=== PATIENT | female | born 1940 | race Caucasian/White ===

== ENCOUNTER 2017-04-13 11:10 | Emergency (ER) | payer MEDICARE, MEDICAID ==
[~2017-04-13] VITALS: Ht 170.2 cm; Wt 64.7 kg
[~2017-04-13 11:10] MED LIST: AUGM500T34 PO
[2017-04-13 11:11] VITALS: BP 186/92
[2017-04-13] MEDS ORDERED: ASPI81TA85 PO (11:22)
== END 2017-04-13 12:04 | disposition home or self-care (01) ==
LOC: M ED 11:10
DX: L98.9 Disorder of the skin and subcutaneous tissue, unspecified (principal); Z85.828 Personal history of other malignant neoplasm of skin; Z79.82 Long term (current) use of aspirin; F17.210 Nicotine dependence, cigarettes, uncomplicated

== ENCOUNTER → 2017-11-20 | Outpatient (CLI) | payer MEDICARE, MEDICAID ==
[2017-11-20 09:28] LABS: APPEARANCE, URINE CLEAR (CLEAR); BACTERIA, URINE AUTO 1+ (NEGATIVE); BILIRUBIN, URINE AUTO NEGATIVE (NEGATIVE); BLOOD, URINE BLOOD 1+ (NEGATIVE); COLOR, URINE YELLOW (YELLOW); GLUCOSE, URINE (UA) AUTO NEGATIVE (NEGATIVE); KETONE, URINE AUTO NEGATIVE (NEGATIVE); LEUKOCYTE ESTERASE, URINE AUTO TRACE (NEGATIVE); MUCUS, URINE SMALL (NEGATIVE); NITRITE, URINE AUTO NEGATIVE (NEGATIVE); PROTEIN, URINE AUTO NEGATIVE (NEGATIVE); RBC, URINE AUTO 2 /HPF (0-3); SPECIFIC GRAVITY URINE AUTO 1.012 (1.002-1.035); SQUAMOUS EPITHELIAL CELL UR AU 2 /HPF (0-6); UROBILINOGEN, URINE AUTO 0.2 mg/dL (0.0-2.0); WBC, URINE AUTO 3 /HPF (0-3)
[2017-11-20 09:38] LABS: ANION GAP 5 MEQ/L (8-16); BLOOD UREA NITROGEN 15 MG/DL (7-18); CALCIUM LEVEL 9.3 MG/DL (8.8-10.2); CARBON DIOXIDE LEVEL 31 MEQ/L (21-32); CHLORIDE LEVEL 108 MEQ/L (98-107); CHOLESTEROL LEVEL 252 MG/DL (<200); CHOLESTEROL RISK RATIO 6.461 (<5); CREATININE FOR GFR 0.87 MG/DL (0.55-1.30); GLOMERULAR FILTRATION RATE > 60.0 (>39); GLUCOSE, FASTING 88 MG/DL (70-100); HDL CHOLESTEROL 39 MG/DL (>40); LDL CHOLESTEROL 154.2 MG/DL (<100); NON-HDL-C 213 MG/DL; POTASSIUM SERUM 4.6 MEQ/L (3.5-5.1); SODIUM LEVEL 144 MEQ/L (136-145); TRIGLYCERIDES LEVEL 294 MG/DL (<150)
== END ==
LOC: M LAB 08:38
DX: M17.0 Bilateral primary osteoarthritis of knee (principal); M25.561 Pain in right knee; M25.562 Pain in left knee; I16.0 Hypertensive urgency; N30.00 Acute cystitis without hematuria; Z13.6 Encounter for screening for cardiovascular disorders
CPT/HCPCS: 73564

== ENCOUNTER → 2017-12-08 | Outpatient (REF) | payer MEDICARE, MEDICAID | LOC: M LAB REF 17:15 | DX: C44.311 Basal cell carcinoma of skin of nose (principal) | CPT/HCPCS: 88305 ==

== ENCOUNTER → 2018-03-01 | Outpatient (CLI) | payer MEDICARE, MEDICAID ==
[2018-03-01 16:58] LABS: ANION GAP 7 MEQ/L (8-16); BLOOD UREA NITROGEN 21 MG/DL (7-18); CALCIUM LEVEL 9.5 MG/DL (8.8-10.2); CARBON DIOXIDE LEVEL 28 MEQ/L (21-32); CHLORIDE LEVEL 110 MEQ/L (98-107); CREATININE FOR GFR 1.07 MG/DL (0.55-1.30); GLOMERULAR FILTRATION RATE 53.1 (>39); GLUCOSE, FASTING 95 MG/DL (70-100); SODIUM LEVEL 145 MEQ/L (136-145)
[2018-03-01 17:07] LABS: POTASSIUM SERUM 5.9 MEQ/L (3.5-5.1)
== END ==
LOC: M WUC 13:37
DX: I10 Essential (primary) hypertension (principal)
CPT/HCPCS: 80048

== ENCOUNTER → 2018-04-17 | Outpatient (CLI) | payer MEDICARE, MEDICAID | LOC: M ONCR 13:02 | DX: C44.301 Unspecified malignant neoplasm of skin of nose (principal) | CPT/HCPCS: G0463 ==

== ENCOUNTER → 2018-05-16 | Outpatient (RCR) | payer MEDICARE, MEDICAID ==
--- NOTE | 2018-04-23 08:59 | RADONC ---
RADIATION ONCOLOGY SIMULATION NOTE DATE: 04/19/2018 CHART NUMBER: [id number] Ms. Bradshaw was taken to the linear accelerator today for clinical setup of her electron beam nose field. Setup was accomplished without difficulty or discomfort. Radiation treatment planning is underway, and radiation treatments will begin subsequently. An immobilization device was created without difficulty or discomfort. It will be used throughout the course of treatment. I was physically present throughout the course of clinical setup simulation.
--- NOTE | 2018-05-01 08:16 | RADONC ---
RADIATION ONCOLOGY PROGRESS NOTE DATE: 04/30/2018 CHART NUMBER: [id number] Ms. Bradshaw is presently at a dose of 600 cGy to her nose and is tolerating treatments quite well at this point with no complaints related to her radiation therapy. She is having no skin discomfort or other problems. REVIEW OF SYSTEMS: The patient's review of systems is noncontributory. She denies nausea, vomiting, fevers, chills, night sweats, diplopia, headaches, anxiety or depression, anorexia, weight loss, visual disturbances, chest pain, urinary or bowel difficulties, bone pain, or neurological problems. PHYSICAL EXAMINATION: The patient's skin is in excellent condition with no evidence of radiation change present. There is no moist or dry desquamation. The remainder of her physical exam remains unchanged. Ms. Bradshaw is tolerating treatments quite well and radiation will continue as scheduled.
[~2018-05-16] MED LIST changes: +ASPI81TA85 PO
== END ==
LOC: M ONCR 04-19 10:59
PROVIDERS: ATTEND Radiology Radiation Oncology
DX: C44.301 Unspecified malignant neoplasm of skin of nose (principal)

== ENCOUNTER 2018-05-17 09:13 | Outpatient (RCR) | payer MEDICARE, MEDICAID | END 2018-06-15 | LOC: M ONCR 05-18 09:05 | DX: C44.301 Unspecified malignant neoplasm of skin of nose (principal) | CPT/HCPCS: 77336 ==

== ENCOUNTER → 2018-07-18 | Outpatient (CLI) | payer MEDICARE, MEDICAID ==
--- NOTE | 2018-07-19 09:43 | RADONC ---
RADIATION ONCOLOGY FOLLOWUP NOTE DATE: 07/18/2018 CHART #: [id number] DIAGNOSIS: Basal cell carcinoma of the nose. ECOG PERFORMANCE STATUS: 0. FOLLOWUP NOTE: Ms. Doran is a very pleasant 78-year-old white female with the diagnosis of a basal cell carcinoma involving her nose bilaterally who is presenting to us today for routine followup visit 1 month post completion of external beam radiation therapy. The patient presents today reporting that she is doing quite well with no complaints at this time related to her radiation therapy or disease. She has no nasal discomfort or other problems. REVIEW OF SYSTEMS: The patient's review of systems is noncontributory. Denies nausea, vomiting, fevers, chills, night sweats, diplopia, headaches, anxiety or depression, anorexia, weight loss, visual disturbances, chest pain, urinary or bowel difficulties, bone pain, or neurological problems. PHYSICAL EXAMINATION The patient is a well-developed, well-nourished white female in no acute distress. HEENT: Exam is normocephalic, atraumatic. Extraocular movements are intact. The skin over the patient's nose is in good condition with no evidence of moist or dry desquamation. There is some residual tanning left. There continues to be some pearly elevation over her left nostril, but this has significantly improved since completion of therapy. There are no other lesions that are suspicious over the patient's face or neck. There is no palpable preauricular, cervical or supraclavicular lymphadenopathy present. ASSESSMENT: The patient has clinically responded quite nicely at this point. I have scheduled her to see me again in 6 months for further followup and she will continue to be followed by her other physicians as well. cc: Jeanette Tipton DO, PGY-2 Daniel Cisneros MD
== END ==
LOC: M ONCR 09:59
PROVIDERS: ATTEND Radiology Radiation Oncology
DX: C44.301 Unspecified malignant neoplasm of skin of nose (principal)

== ENCOUNTER → 2018-10-03 | Outpatient (CLI) | payer MEDICARE, MEDICAID ==
[2018-10-03 13:44] LABS: BLOOD UREA NITROGEN 13 MG/DL (7-18); CALCIUM LEVEL 9.3 MG/DL (8.8-10.2); CARBON DIOXIDE LEVEL 32 MEQ/L (21-32); CHLORIDE LEVEL 110 MEQ/L (98-107); CREATININE FOR GFR 0.92 MG/DL (0.55-1.30); GLOMERULAR FILTRATION RATE > 60.0 (>39); GLUCOSE, FASTING 96 MG/DL (70-100); POTASSIUM SERUM 4.4 MEQ/L (3.5-5.1); SODIUM LEVEL 144 MEQ/L (136-145)
== END ==
LOC: M WUC 10:16
PROVIDERS: ATTEND Obstetrics & Gynecology
DX: I10 Essential (primary) hypertension (principal)

== ENCOUNTER → 2018-12-05 | Outpatient (CLI) | payer MEDICARE, MEDICAID ==
--- NOTE | 2018-12-09 14:11 | RADONC ---
RADIATION ONCOLOGY FOLLOWUP NOTE DATE: 12/05/2018 CHART #: [id number] DIAGNOSIS: Basal cell carcinoma of the nose. ECOG PERFORMANCE STATUS: 0. FOLLOWUP NOTE: Ms. Doran is very pleasant 78-year-old white female with the diagnosis of a basal cell carcinoma of her nose bilaterally who is presenting to us today for routine followup visit 6 months post completion of external beam radiation therapy. The patient presents today reporting that she is doing quite well with no complaints at this time related to her radiation therapy or disease. She has no skin pain or other discomforts. REVIEW OF SYSTEMS: The patient's review of systems is noncontributory. Denies nausea, vomiting, fevers, chills, night sweats, diplopia, headaches, anxiety or depression, anorexia, weight loss, visual disturbances, chest pain, urinary or bowel difficulties, bone pain, or neurological problems. PHYSICAL EXAMINATION: The patient is a well-developed, well-nourished white female in no acute distress. The skin over the treated nose is in good condition with no evidence of moist or dry desquamation. The area where her large basal cell carcinoma was has largely resolved, although there continues to be a small reddish tiny area with some elevation. This is returning to normal, but has not yet achieved normalcy. There is no palpable preauricular, cervical, supraclavicular or infraclavicular lymphadenopathy. The remainder of physical exam is unremarkable. ASSESSMENT: The patient is clinically doing very well at this time with what appears to be an excellent response. I have scheduled her however to see me again in 6 months for follow up since the skin has not totally returned to normal yet. She will also continue her follow up with her other physicians in the meantime. cc: Jeanette Tipton DO, PGY-2 Daniel Cisneros MD
== END ==
LOC: M ONCR 10:08
PROVIDERS: ATTEND Radiology Radiation Oncology
DX: C44.301 Unspecified malignant neoplasm of skin of nose (principal); Z92.3 Personal history of irradiation

== ENCOUNTER → 2019-05-29 | Outpatient (CLI) | payer MEDICARE, MEDICAID ==
--- NOTE | 2019-05-29 13:11 | RADONC ---
RADIATION ONCOLOGY FOLLOWUP NOTE DATE OF SERVICE: 05/29/2019 CHART NUMBER: [id number] DIAGNOSIS: Basal cell carcinoma of the nose. ECOG PERFORMANCE STATUS: 0. FOLLOWUP NOTE: Ms. Doran is a very pleasant 79-year-old white female with the diagnosis of a basal cell carcinoma involving the right side of her nose who is presenting to us today for routine followup visit now 1 year post completion of external beam radiation therapy. The patient presents today reporting that the lesion continues to be present and largely unchanged on her right lateral nose. She is having no pain or discomfort. REVIEW OF SYSTEMS: Noncontributory. Denies nausea, vomiting, fevers, chills, night sweats, diplopia, headaches, anxiety or depression, anorexia, weight loss, visual disturbances, chest pain, urinary or bowel difficulties, bone pain, or neurological problems. PHYSICAL EXAMINATION: The patient is a well-developed, well-nourished white female in no acute distress. The skin over the treated nose is in good condition with no evidence of moist or dry desquamation. There continues to be an elevated lesion, which is largely unchanged since time of completion of therapy. This appears to be residual disease. There is no palpable preauricular, cervical, supraclavicular, infraclavicular lymphadenopathy present. Lungs are clear to auscultation and percussion. ASSESSMENT: : I had a lengthy discussion with this patient and have personally reviewed her dosimetry. The area was treated with 9 mEq electrons prescribed to the 90% isodose line for a dose of 6000 cGy over 49 elapsed days from 04/26/2018 through 06/14/2018. 1/2 cm of tissue equivalent bolus was placed over the field. Unfortunately, the patient continues have what appears to be residual disease. I have spoken with Dr. Stinson about the possibility of resection for this lesion. Dr. Stinson appears to believe this patient may be a candidate for surgical resection for salvage. I am sending list copy of all our records, including the original pathology report to his office for evaluation and scheduling of a surgical resection. Of course, I would defer to his expertise and knowledge in the field with regards to any decisions regarding therapy. In light of the patient's close followup and intervention by Dr. Stinson, I have discharged her from my followup except on a p.r.n. basis. The patient has my cell phone number and office number and has been instructed to feel free and contact me at anytime. cc: Dallas Stinson MD
== END ==
LOC: M ONCR 10:08
PROVIDERS: ATTEND Radiology Radiation Oncology
DX: C44.301 Unspecified malignant neoplasm of skin of nose (principal)

== ENCOUNTER → 2019-06-05 | Outpatient (REF) | payer MEDICARE, MEDICAID | LOC: M LAB REF 08:28 | PROVIDERS: ATTEND Dermatology | DX: C44.311 Basal cell carcinoma of skin of nose (principal) ==

== ENCOUNTER → 2019-08-02 | Outpatient (REF) | payer MEDICARE, MEDICAID | LOC: EEVIPCON 14:15 → M LAB REF 14:15 | PROVIDERS: ATTEND Dermatology | DX: T14.90XD Injury, unspecified, subsequent encounter (principal) ==

== ENCOUNTER 2022-04-18 11:19 | Emergency (ER) | payer MEDICARE, MEDICAID, OTHER ==
[~2022-04-18] VITALS: Ht 170.2 cm; Wt 67.3 kg
[~2022-04-18 11:19] MED LIST changes: -ASPI81TA85 PO; +ASPI81TA86 PO
[2022-04-18 12:26] LABS: BASO # 0.1 10^3/uL (0.0-0.2); BASO % 0.9 % (0.0-1.0); EOS # 0.1 10^3/uL (0.0-0.5); EOS % 0.6 % (0.0-3.0); HEMOGLOBIN 14.3 g/dl (12.0-15.5); LYMPH % 27.1 % (24.0-44.0); MEAN CORPUSCULAR HEMOGLOBIN 29.6 pg (27.0-33.0); MEAN CORPUSCULAR HGB CONC 31.8 g/dl (32.0-36.5); MEAN CORPUSCULAR VOLUME 93.2 fl (80.0-96.0); MONO # 1.1 10^3/uL (0.0-0.8); MONO % 9.9 % (2.0-8.0); NEUTROPHILS # 6.7 10^3/uL (1.5-8.5); NEUTROPHILS % 60.9 % (36.0-66.0); PLATELET COUNT, AUTOMATED 318 10^3/uL (150-450); RED BLOOD COUNT 4.83 10^6/uL (4.00-5.40)
[2022-04-18 13:00] LABS: RSV AMPLIFICATION NEGATIVE (NEGATIVE)
[2022-04-18 14:27] LABS: BLOOD UREA NITROGEN 14 MG/DL (7-18); CALCIUM LEVEL 9.3 MG/DL (8.8-10.2); CARBON DIOXIDE LEVEL 27 MEQ/L (21-32); CHLORIDE LEVEL 108 MEQ/L (98-107); CREATININE FOR GFR 0.66 MG/DL (0.55-1.30); GLOMERULAR FILTRATION RATE > 60.0 (>32); GLUCOSE, FASTING 88 MG/DL (70-100); POTASSIUM SERUM 4.3 MEQ/L (3.5-5.1); SODIUM LEVEL 140 MEQ/L (136-145)
[2022-04-18] MEDS ORDERED: PROHANCE 279.3MG/ML 15ML VIAL As Ordered ONE (15:05)
[2022-04-18] MEDS ORDERED: CVS1MIS79 XX (17:26)
[2022-04-18] MEDS ORDERED: AMLO10TA PO (17:31)
[2022-04-18 17:32] VITALS: BP 178/90
== END 2022-04-18 17:46 | disposition home or self-care (01) ==
LOC: M ED 11:19
DX: H49.22 Sixth [abducent] nerve palsy, left eye (principal); I10 Essential (primary) hypertension; Z79.82 Long term (current) use of aspirin
CPT/HCPCS: 36415; 70450; 70553; 71045; 80048; 84443; 85025; 87631; 93005; 93041; 94760; 99285; A9576

== ENCOUNTER → 2022-11-15 | Outpatient (REF) | payer MEDICARE ==
[~2022-11-15] MED LIST changes: +AMLO10TA PO; +CVS1MIS79 XX
== END ==
LOC: M LAB REF 17:39
PROVIDERS: ATTEND Nurse Practitioner Family
DX: R35.0 Frequency of micturition (principal)

== ENCOUNTER → 2022-11-18 | Outpatient (CLI) | payer MEDICARE ==
[2022-11-18 12:35] LABS: BASO # 0.1 10^3/uL (0.0-0.2); BASO % 1.2 % (0.0-1.0); EOS # 0.1 10^3/uL (0.0-0.5); HEMATOCRIT 47.3 % (36.0-47.0); HEMOGLOBIN 14.7 g/dl (12.0-15.5); LYMPH # 2.9 10^3/uL (1.5-5.0); LYMPH % 30.9 % (24.0-44.0); MEAN CORPUSCULAR HEMOGLOBIN 29.5 pg (27.0-33.0); MEAN CORPUSCULAR HGB CONC 31.1 g/dl (32.0-36.5); MONO # 0.9 10^3/uL (0.0-0.8); MONO % 9.3 % (2.0-8.0); NEUTROPHILS # 5.3 10^3/uL (1.5-8.5); NEUTROPHILS % 56.6 % (36.0-66.0); PLATELET COUNT, AUTOMATED 364 10^3/uL (150-450); RED BLOOD COUNT 4.98 10^6/uL (4.00-5.40); WHITE BLOOD COUNT 9.3 10^3/uL (4.0-10.0)
[2022-11-18 13:05] LABS: ALBUMIN 3.5 G/DL (3.2-5.2); ALKALINE PHOSPHATASE 102 U/L (46-116); ALT/SGPT 12 U/L (7.0-40); AST/SGOT < 8 U/L (<34); BILIRUBIN,TOTAL 0.3 MG/DL (0.3-1.2); BLOOD UREA NITROGEN 11 MG/DL (9-23); CALCIUM LEVEL 9.2 MG/DL (8.3-10.6); CARBON DIOXIDE LEVEL 31 MMOL/L (20-31); CHLORIDE LEVEL 105 MMOL/L (98-107); GLOMERULAR FILTRATION RATE > 60.0 (>32); GLUCOSE, FASTING 85 MG/DL (74-106); POTASSIUM SERUM 4.5 MMOL/L (3.5-5.1); SODIUM LEVEL 143 MMOL/L (136-145); TOTAL PROTEIN 6.9 G/DL (5.7-8.2)
== END ==
LOC: M WUC 08:45
PROVIDERS: ATTEND Nurse Practitioner Family
DX: I10 Essential (primary) hypertension (principal)

== ENCOUNTER → 2023-01-04 | Outpatient (REF) | payer MEDICARE ==
[2023-01-04 18:15] LABS: AMORPHOUS SEDIMENT SMALL (NEGATIVE); APPEARANCE, URINE HAZY (CLEAR); BACTERIA, URINE AUTO NEGATIVE (NEGATIVE); BILIRUBIN, URINE AUTO NEGATIVE (NEGATIVE); BLOOD, URINE BLOOD NEGATIVE (NEGATIVE); COLOR, URINE YELLOW (YELLOW); GLUCOSE, URINE (UA) AUTO NEGATIVE (NEGATIVE); KETONE, URINE AUTO NEGATIVE (NEGATIVE); LEUKOCYTE ESTERASE, URINE AUTO NEGATIVE (NEGATIVE); MUCUS, URINE SMALL (NEGATIVE); NITRITE, URINE AUTO NEGATIVE (NEGATIVE); PROTEIN, URINE AUTO NEGATIVE (NEGATIVE); RBC, URINE AUTO 2 /HPF (0-3); SPECIFIC GRAVITY URINE AUTO 1.017 (1.002-1.035); SQUAMOUS EPITHELIAL CELL UR AU 2 /HPF (0-6); UROBILINOGEN, URINE AUTO 0.2 mg/dL (0.0-2.0); WBC, URINE AUTO 1 /HPF (0-3)
== END ==
LOC: M LABSMT 13:16
PROVIDERS: ATTEND Urology
DX: R35.0 Frequency of micturition (principal)

== ENCOUNTER → 2023-12-13 | Outpatient (REF) | payer MEDICARE ==
[2023-12-13 13:11] LABS: BASO # 0.1 10^3/uL (0.0-0.2); BASO % 0.9 % (0.0-1.0); EOS # 0.1 10^3/uL (0.0-0.5); EOS % 1.2 % (0.0-3.0); HEMATOCRIT 45.8 % (36.0-47.0); HEMOGLOBIN 14.4 g/dl (12.0-15.5); LYMPH # 4.2 10^3/uL (1.5-5.0); MEAN CORPUSCULAR HEMOGLOBIN 30.1 pg (27.0-33.0); MEAN CORPUSCULAR HGB CONC 31.4 g/dl (32.0-36.5); MEAN CORPUSCULAR VOLUME 95.8 fl (80.0-96.0); MONO # 1.1 10^3/uL (0.0-0.8); MONO % 9.8 % (2.0-8.0); NEUTROPHILS # 5.4 10^3/uL (1.5-8.5); NEUTROPHILS % 49.5 % (36.0-66.0); PLATELET COUNT, AUTOMATED 434 10^3/uL (150-450); RED BLOOD COUNT 4.78 10^6/uL (4.00-5.40); WHITE BLOOD COUNT 10.9 10^3/uL (4.0-10.0)
[2023-12-13 13:34] LABS: ALBUMIN 3.6 G/DL (3.2-5.2); ALKALINE PHOSPHATASE 97 U/L (46-116); ALT/SGPT 15 U/L (7.0-40); AST/SGOT 11 U/L (<34); BILIRUBIN,TOTAL 0.3 MG/DL (0.3-1.2); BLOOD UREA NITROGEN 21 MG/DL (9-23); CALCIUM LEVEL 9.6 MG/DL (8.3-10.6); CARBON DIOXIDE LEVEL 30 MMOL/L (20-31); CHLORIDE LEVEL 108 MMOL/L (98-107); CHOLESTEROL LEVEL 216 MG/DL (<200); CHOLESTEROL RISK RATIO 5.53 (<5); GLOMERULAR FILTRATION RATE > 60.0 (>32); GLUCOSE, FASTING 78 MG/DL (74-106); LDL CHOLESTEROL 129.8 MG/DL (<100); POTASSIUM SERUM 4.9 MMOL/L (3.5-5.1); SODIUM LEVEL 143 MMOL/L (136-145); TOTAL PROTEIN 7.1 G/DL (5.7-8.2); TRIGLYCERIDES LEVEL 236 MG/DL (<150)
== END ==
LOC: M LAB REF 10:28 → M LABWUC 10:28
PROVIDERS: ATTEND Registered Nurse
DX: I10 Essential (primary) hypertension (principal)

== ENCOUNTER → 2024-04-18 | Outpatient (REF) | payer MEDICARE, MEDICAID | LOC: M LAB REF 17:28 | PROVIDERS: ATTEND Registered Nurse | DX: R30.0 Dysuria (principal) ==

== ENCOUNTER → 2024-05-02 | Outpatient (REF) | payer MEDICARE, MEDICAID | LOC: M LAB REF 17:02 | PROVIDERS: ATTEND Registered Nurse | DX: R30.0 Dysuria (principal) ==

== ENCOUNTER → 2024-05-14 | Outpatient (CLI) | payer MEDICARE, MEDICAID ==
[2024-05-14 13:03] LABS: BASO # 0.1 10^3/uL (0.0-0.2); BASO % 0.5 % (0.0-1.0); EOS # 0.1 10^3/uL (0.0-0.5); EOS % 0.5 % (0.0-3.0); LYMPH # 3.5 10^3/uL (1.5-5.0); LYMPH % 26.7 % (24.0-44.0); MEAN CORPUSCULAR HEMOGLOBIN 29.7 pg (27.0-33.0); MEAN CORPUSCULAR VOLUME 95.9 fl (80.0-96.0); MONO # 1.1 10^3/uL (0.0-0.8); MONO % 8.6 % (2.0-8.0); NEUTROPHILS # 8.2 10^3/uL (1.5-8.5); NEUTROPHILS % 63.1 % (36.0-66.0); PLATELET COUNT, AUTOMATED 459 10^3/uL (150-450); RED BLOOD COUNT 4.38 10^6/uL (4.00-5.40)
[2024-05-14 13:26] LABS: ALKALINE PHOSPHATASE 92 U/L (35-104); ALT/SGPT < 9 U/L (7.0-40); AST/SGOT 14 U/L (<34); BILIRUBIN,TOTAL 0.3 MG/DL (0.3-1.2); BLOOD UREA NITROGEN 10 MG/DL (9-23); CALCIUM LEVEL 9.5 MG/DL (8.3-10.6); CARBON DIOXIDE LEVEL 29 MMOL/L (20-31); CHLORIDE LEVEL 108 MMOL/L (98-107); CREATININE FOR GFR 0.68 MG/DL (0.55-1.30); GLOMERULAR FILTRATION RATE > 60.0 (>32); GLUCOSE, FASTING 91 MG/DL (74-106); POTASSIUM SERUM 4.6 MMOL/L (3.5-5.1); SODIUM LEVEL 141 MMOL/L (136-145)
== END ==
LOC: M WUC 09:40
PROVIDERS: ATTEND Registered Nurse
DX: R30.0 Dysuria (principal)

== ENCOUNTER → 2024-05-22 | Outpatient (CLI) | payer MEDICARE, MEDICAID ==
[~2024-05-22] MED LIST changes: +ASPI81CH33 PO; +LOSA100T46 PO; +ONDA-83 PO; +PRED10TA2 PO
[2024-05-22 17:23] LABS: BASO # 0.1 10^3/uL (0.0-0.2); BASO % 0.4 % (0.0-1.0); EOS # 0.1 10^3/uL (0.0-0.5); EOS % 0.3 % (0.0-3.0); HEMATOCRIT 44.7 % (36.0-47.0); HEMOGLOBIN 13.4 g/dl (12.0-15.5); LYMPH # 3.3 10^3/uL (1.5-5.0); LYMPH % 21.1 % (24.0-44.0); MEAN CORPUSCULAR HEMOGLOBIN 29.1 pg (27.0-33.0); MEAN CORPUSCULAR VOLUME 97.2 fl (80.0-96.0); MONO # 1.6 10^3/uL (0.0-0.8); NEUTROPHILS # 10.5 10^3/uL (1.5-8.5); NEUTROPHILS % 67.6 % (36.0-66.0); PLATELET COUNT, AUTOMATED 540 10^3/uL (150-450); WHITE BLOOD COUNT 15.6 10^3/uL (4.0-10.0)
[2024-05-22 17:34] LABS: ERYTHROCYTE SEDIMENTATION RATE 122 mm/hr (0-30)
[2024-05-22 17:56] LABS: LDH LACTATE DEHYDROGENASE 154 U/L (120-246)
[2024-05-22 17:58] LABS: ALBUMIN 3.2 G/DL (3.2-5.2); ALKALINE PHOSPHATASE 94 U/L (35-104); ALT/SGPT < 9 U/L (7.0-40); AST/SGOT 9 U/L (<34); BILIRUBIN,TOTAL 0.3 MG/DL (0.3-1.2); BLOOD UREA NITROGEN 13 MG/DL (9-23); CALCIUM LEVEL 9.9 MG/DL (8.3-10.6); CARBON DIOXIDE LEVEL 28 MMOL/L (20-31); CHLORIDE LEVEL 104 MMOL/L (98-107); CREATININE FOR GFR 0.69 MG/DL (0.55-1.30); FREE T4 1.26 NG/DL (0.89-1.76); GLOMERULAR FILTRATION RATE > 60.0 (>32); GLUCOSE, FASTING 93 MG/DL (74-106); POTASSIUM SERUM 3.8 MMOL/L (3.5-5.1); SODIUM LEVEL 140 MMOL/L (136-145); THYROID STIMULATING HORMONE 2.992 uIU/ML (0.55-4.78); TOTAL PROTEIN 7.8 G/DL (5.7-8.2)
== END ==
LOC: M WUC 11:18
PROVIDERS: ATTEND Nurse Practitioner Family
DX: R63.4 Abnormal weight loss (principal); R10.30 Lower abdominal pain, unspecified; R19.09 Other intra-abdominal and pelvic swelling, mass and lump

== ENCOUNTER 2024-06-02 17:10 | Inpatient (IN) | payer MEDICARE, MEDICAID ==
[~2024-06-02] VITALS: Ht 170.2 cm; Wt 125.7 kg
[~2024-06-02 17:10] MED LIST changes: -ASPI81CH33 PO; -LOSA100T46 PO; -ONDA-83 PO; -PRED10TA2 PO
[2024-06-02] MEDS ORDERED: ONDA-83 PO (17:49)
[2024-06-02] MEDS ORDERED: PRED10TA2 PO (17:49)
[2024-06-02 19:07] LABS: BASO # 0.1 10^3/uL (0.0-0.2); BASO % 0.4 % (0.0-1.0); EOS % 0.1 % (0.0-3.0); HEMATOCRIT 43.7 % (36.0-47.0); HEMOGLOBIN 13.9 g/dl (12.0-15.5); LYMPH # 3.2 10^3/uL (1.5-5.0); LYMPH % 16.4 % (24.0-44.0); MEAN CORPUSCULAR HEMOGLOBIN 29.4 pg (27.0-33.0); MEAN CORPUSCULAR HGB CONC 31.8 g/dl (32.0-36.5); MEAN CORPUSCULAR VOLUME 92.4 fl (80.0-96.0); MONO % 14.8 % (2.0-8.0); NEUTROPHILS # 12.6 10^3/uL (1.5-8.5); NEUTROPHILS % 65.9 % (36.0-66.0); PLATELET COUNT, AUTOMATED 541 10^3/uL (150-450); RED BLOOD COUNT 4.73 10^6/uL (4.00-5.40); WHITE BLOOD COUNT 19.2 10^3/uL (4.0-10.0)
[2024-06-02 19:19] LABS: MONO # 2.9 10^3/uL (0.0-0.8)
[2024-06-02 19:29] LABS: BLOOD UREA NITROGEN 18 MG/DL (9-23); CALCIUM LEVEL 9.8 MG/DL (8.3-10.6); CARBON DIOXIDE LEVEL 28 MMOL/L (20-31); CHLORIDE LEVEL 107 MMOL/L (98-107); CREATININE FOR GFR 0.71 MG/DL (0.55-1.30); GLOMERULAR FILTRATION RATE > 60.0 (>32); GLUCOSE, FASTING 102 MG/DL (74-106); POTASSIUM SERUM 4.7 MMOL/L (3.5-5.1); SODIUM LEVEL 144 MMOL/L (136-145)
[2024-06-02] MEDS: PIPERACILLIN/TAZOBACTAM SOD 3.375 GM in DEXTROSE 5% (D5W) ADV/MINI-BAG 50 ML IV ONE (23:20)
[2024-06-03] MEDS ORDERED: MOM 30ML SUSPENSION UDC PO PRN (00:25)
[2024-06-03] MEDS ORDERED: ASPI81CH33 PO (00:40)
[2024-06-03] MEDS ORDERED: LOSA100T46 PO (00:40)
[2024-06-03] MEDS ORDERED: HOME MED LIST COMPLETE! XX SCH (00:45)
[2024-06-03] MEDS: IPRATROPIUM 0.5MG/ALBUTEROL 2.5MG INH SOL UD 3ML (DUONEB) NEB SCH (00:56)
[2024-06-03 01:42] VITALS: BP 178/97; TEMP 97.7; O2SAT 94
[2024-06-03] MEDS: ONDANSETRON 4MG 2ML VIAL IV PRN (02:52)
[2024-06-03] MEDS: KETOROLAC 30 MG/ML 1ML VIAL IV PRN (04:17)
[2024-06-03 04:23] VITALS: BP 159/87; TEMP 98.1; O2SAT 90
[2024-06-03 06:41] LABS: HEMATOCRIT 38.7 % (36.0-47.0); HEMOGLOBIN 12.1 g/dl (12.0-15.5); MEAN CORPUSCULAR HGB CONC 31.3 g/dl (32.0-36.5); MEAN CORPUSCULAR VOLUME 92.8 fl (80.0-96.0); RED BLOOD COUNT 4.17 10^6/uL (4.00-5.40); WHITE BLOOD COUNT 16.4 10^3/uL (4.0-10.0)
[2024-06-03] MEDS: PIPERACILLIN/TAZOBACTAM SOD 3.375 GM in DEXTROSE 5% (D5W) ADV/MINI-BAG 50 ML IV SCH (06:44)
[2024-06-03 06:47] LABS: PLATELET COUNT, AUTOMATED 441 10^3/uL (150-450)
[2024-06-03 06:56] LABS: ALBUMIN 2.2 G/DL (3.2-5.2); ALKALINE PHOSPHATASE 88 U/L (35-104); ALT/SGPT 28 U/L (7.0-40); AST/SGOT 14 U/L (<34); BILIRUBIN,TOTAL 0.3 MG/DL (0.3-1.2); BLOOD UREA NITROGEN 17 MG/DL (9-23); CALCIUM LEVEL 9.3 MG/DL (8.3-10.6); CARBON DIOXIDE LEVEL 30 MMOL/L (20-31); CHLORIDE LEVEL 107 MMOL/L (98-107); CREATININE FOR GFR 0.73 MG/DL (0.55-1.30); GLOMERULAR FILTRATION RATE > 60.0 (>32); GLUCOSE, FASTING 104 MG/DL (74-106); POTASSIUM SERUM 4.2 MMOL/L (3.5-5.1); SODIUM LEVEL 141 MMOL/L (136-145); TOTAL PROTEIN 6.3 G/DL (5.7-8.2)
[2024-06-03] MEDS ORDERED: predniSONE 10MG TAB PO SCH (09:00)
[2024-06-03] MEDS: LOSARTAN 50MG TABLET PO SCH (09:08)
[2024-06-03] MEDS: LR 1,000 ML IV SCH (09:08)
[2024-06-03] MEDS: PANTOPRAZOLE 40MG VIAL IV SCH (09:08)
[2024-06-03] MEDS ORDERED: GLUCAGON INJ 1MG VIAL SC PRN (11:05)
[2024-06-03] MEDS ORDERED: IPRATROPIUM 0.5MG/ALBUTEROL 2.5MG INH SOL UD 3ML (DUONEB) NEB PRN (11:05)
[2024-06-03] MEDS ORDERED: GLUCOSE 4 GM CHEW PO PRN (11:05)
[2024-06-03] MEDS ORDERED: DEXTROSE 50% 50ML SYRINGE IV PRN (11:05)
[2024-06-03 12:00] VITALS: BP 141/75; TEMP 97.9; O2SAT 95
[2024-06-03] MEDS ORDERED: LIDOCAINE 1% MDV 20ML VIAL As Ordered ONE (12:46)
[2024-06-03 20:00] VITALS: BP 141/77; TEMP 98.2; O2SAT 94
[2024-06-04 04:00] VITALS: BP 138/76; TEMP 98.1; O2SAT 92
[2024-06-04] MEDS: IPRATROPIUM 0.5MG/ALBUTEROL 2.5MG INH SOL UD 3ML (DUONEB) NEB SCH (08:00)
[2024-06-04] MEDS: ASPIRIN 81MG ENTERIC TABLET PO SCH (09:00)
[2024-06-04] MEDS: MORPHINE 4 MG/ML 1ML VIAL IV PRN (09:41)
[2024-06-04 09:44] LABS: BASO # 0.1 10^3/uL (0.0-0.2); BASO % 0.5 % (0.0-1.0); EOS % 0.1 % (0.0-3.0); HEMATOCRIT 38.9 % (36.0-47.0); LYMPH % 17.2 % (24.0-44.0); MEAN CORPUSCULAR HEMOGLOBIN 29.3 pg (27.0-33.0); MEAN CORPUSCULAR HGB CONC 30.8 g/dl (32.0-36.5); MEAN CORPUSCULAR VOLUME 94.9 fl (80.0-96.0); MONO % 11.6 % (2.0-8.0); NEUTROPHILS # 12.1 10^3/uL (1.5-8.5); NEUTROPHILS % 68.3 % (36.0-66.0); PLATELET COUNT, AUTOMATED 394 10^3/uL (150-450); WHITE BLOOD COUNT 17.7 10^3/uL (4.0-10.0)
[2024-06-04 10:20] LABS: BLOOD UREA NITROGEN 15 MG/DL (9-23); CALCIUM LEVEL 8.9 MG/DL (8.3-10.6); CARBON DIOXIDE LEVEL 30 MMOL/L (20-31); CHLORIDE LEVEL 106 MMOL/L (98-107); CREATININE FOR GFR 0.81 MG/DL (0.55-1.30); GLOMERULAR FILTRATION RATE > 60.0 (>32); GLUCOSE, FASTING 82 MG/DL (74-106); POTASSIUM SERUM 4.4 MMOL/L (3.5-5.1); SODIUM LEVEL 141 MMOL/L (136-145)
[2024-06-04] MEDS: ENOXAPARIN 40MG/0.4ML SYRINGE (J1650 PER 10MG) SC SCH (11:36)
[2024-06-04 12:00] VITALS: BP 149/85; TEMP 97.5; O2SAT 90
[2024-06-04 12:30] VITALS: O2SAT 95
[2024-06-04 13:00] VITALS: O2SAT 85
[2024-06-04 13:10] VITALS: O2SAT 90
[2024-06-04 20:54] VITALS: BP 114/72; TEMP 97.7; O2SAT 91
[2024-06-05] VITALS (15 sets, daily range): BP systolic 98–133; BP diastolic 62–81; TEMP 97.7–101.2; O2SAT 85–93
[2024-06-05 04:44] LABS: BASO # 0.1 10^3/uL (0.0-0.2); BASO % 0.5 % (0.0-1.0); EOS % 0.1 % (0.0-3.0); HEMATOCRIT 37.2 % (36.0-47.0); HEMOGLOBIN 11.5 g/dl (12.0-15.5); LYMPH # 2.9 10^3/uL (1.5-5.0); LYMPH % 16.4 % (24.0-44.0); MEAN CORPUSCULAR HEMOGLOBIN 29.4 pg (27.0-33.0); MEAN CORPUSCULAR HGB CONC 30.9 g/dl (32.0-36.5); MEAN CORPUSCULAR VOLUME 95.1 fl (80.0-96.0); MONO # 1.8 10^3/uL (0.0-0.8); MONO % 10.3 % (2.0-8.0); NEUTROPHILS # 12.5 10^3/uL (1.5-8.5); NEUTROPHILS % 70.4 % (36.0-66.0); PLATELET COUNT, AUTOMATED 407 10^3/uL (150-450); RED BLOOD COUNT 3.91 10^6/uL (4.00-5.40); WHITE BLOOD COUNT 17.7 10^3/uL (4.0-10.0)
[2024-06-05 04:52] LABS: VENOUS BASE EXCESS 3.2 (-2.0-2.0); VENOUS HCO3 28.8 MMOL/L (23.0-27.0); VENOUS PARTIAL PRESSURE CO2 47.6 mmHg (38.0-50.0); VENOUS PARTIAL PRESSURE O2 74.4 mmHg (30.0-50.0); VENOUS PH 7.399 UNITS (7.330-7.430); VENOUS STANDARD HCO3 27.3 MMOL/L; VENOUS TOTAL CO2 30.2 MMOL/L (24.0-28.0)
[2024-06-05 05:05] LABS: BLOOD UREA NITROGEN 14 MG/DL (9-23); CALCIUM LEVEL 8.6 MG/DL (8.3-10.6); CARBON DIOXIDE LEVEL 30 MMOL/L (20-31); CHLORIDE LEVEL 105 MMOL/L (98-107); CHOLESTEROL LEVEL 167 MG/DL (<200); CHOLESTEROL RISK RATIO 5.21 (<5); CREATININE FOR GFR 0.77 MG/DL (0.55-1.30); GLOMERULAR FILTRATION RATE > 60.0 (>32); GLUCOSE, FASTING 110 MG/DL (74-106); LDL CHOLESTEROL 105.2 MG/DL (<100); POTASSIUM SERUM 3.6 MMOL/L (3.5-5.1); SODIUM LEVEL 141 MMOL/L (136-145); TRIGLYCERIDES LEVEL 149 MG/DL (<150)
[2024-06-05] MEDS: MAGNESIUM OXIDE 400MG TAB (MAG-OX) PO ONE (05:35)
[2024-06-05] MEDS: ACETAMINOPHEN 325 MG TAB PO PRN (09:02)
[2024-06-05] MEDS ORDERED: ISOVUE-370 76% 100ML VIAL As Ordered ONE (09:18)
[2024-06-05] MEDS: ERTAPENEM SODIUM 1 GM in NS MINI-BAG PLUS 50 ML IV SCH (11:08)
[2024-06-05] MEDS: methylPREDNISolone 125MG 2ML VIAL IV ONE (11:08)
[2024-06-05] MEDS: MAG SULF 1GM/100ML (MAG RUN) 1 GM in IV 1 EA IV SCH (11:50)
[2024-06-05] MEDS: ATORVASTATIN 20 MG TAB PO SCH (14:14)
[2024-06-05] MEDS: methylPREDNISolone 40MG 1ML VIAL IV SCH (20:38)
[2024-06-06] VITALS (12 sets, daily range): BP systolic 115–141; BP diastolic 67–83; TEMP 97.2–98.2; O2SAT 85–96
[2024-06-06 06:10] LABS: BASO % 0.1 % (0.0-1.0); EOS % 0.1 % (0.0-3.0); HEMOGLOBIN 11.5 g/dl (12.0-15.5); LYMPH % 5.7 % (24.0-44.0); MEAN CORPUSCULAR HEMOGLOBIN 28.9 pg (27.0-33.0); MEAN CORPUSCULAR HGB CONC 31.1 g/dl (32.0-36.5); MONO # 0.5 10^3/uL (0.0-0.8); MONO % 3.1 % (2.0-8.0); NEUTROPHILS # 14.8 10^3/uL (1.5-8.5); PLATELET COUNT, AUTOMATED 385 10^3/uL (150-450); RED BLOOD COUNT 3.98 10^6/uL (4.00-5.40); WHITE BLOOD COUNT 16.6 10^3/uL (4.0-10.0)
[2024-06-06 06:40] LABS: BLOOD UREA NITROGEN 11 MG/DL (9-23); CALCIUM LEVEL 9.2 MG/DL (8.3-10.6); CARBON DIOXIDE LEVEL 29 MMOL/L (20-31); CHLORIDE LEVEL 105 MMOL/L (98-107); CREATININE FOR GFR 0.57 MG/DL (0.55-1.30); GLOMERULAR FILTRATION RATE > 60.0 (>32); GLUCOSE, FASTING 147 MG/DL (74-106); POTASSIUM SERUM 4.1 MMOL/L (3.5-5.1); SODIUM LEVEL 139 MMOL/L (136-145)
[2024-06-06] MEDS ORDERED: predniSONE 5 MG TAB PO SCH (09:00)
[2024-06-07] VITALS: BP 139/77; TEMP 97.6; O2SAT 93
[2024-06-07 04:00] VITALS: BP 151/87; TEMP 97.3; O2SAT 93
[2024-06-07 04:50] LABS: BASO % 0.2 % (0.0-1.0); HEMOGLOBIN 11.3 g/dl (12.0-15.5); LYMPH # 1.1 10^3/uL (1.5-5.0); LYMPH % 5.1 % (24.0-44.0); MEAN CORPUSCULAR HEMOGLOBIN 28.8 pg (27.0-33.0); MEAN CORPUSCULAR HGB CONC 31.4 g/dl (32.0-36.5); MEAN CORPUSCULAR VOLUME 91.6 fl (80.0-96.0); MONO # 0.7 10^3/uL (0.0-0.8); MONO % 3.4 % (2.0-8.0); NEUTROPHILS # 19.1 10^3/uL (1.5-8.5); NEUTROPHILS % 89.4 % (36.0-66.0); PLATELET COUNT, AUTOMATED 473 10^3/uL (150-450); RED BLOOD COUNT 3.93 10^6/uL (4.00-5.40); WHITE BLOOD COUNT 21.4 10^3/uL (4.0-10.0)
[2024-06-07 05:30] LABS: BLOOD UREA NITROGEN 17 MG/DL (9-23); CALCIUM LEVEL 9.4 MG/DL (8.3-10.6); CARBON DIOXIDE LEVEL 29 MMOL/L (20-31); CHLORIDE LEVEL 105 MMOL/L (98-107); CREATININE FOR GFR 0.66 MG/DL (0.55-1.30); GLOMERULAR FILTRATION RATE > 60.0 (>32); GLUCOSE, FASTING 162 MG/DL (74-106); POTASSIUM SERUM 4.1 MMOL/L (3.5-5.1); SODIUM LEVEL 141 MMOL/L (136-145)
[2024-06-07 09:30] VITALS: BP 154/90; TEMP 96.7; O2SAT 91
[2024-06-07 12:00] VITALS: BP 154/90; TEMP 97; O2SAT 93
[2024-06-07 16:00] VITALS: BP 148/78; TEMP 97.5; O2SAT 94
[2024-06-07] MEDS: methylPREDNISolone 40MG 1ML VIAL IV SCH (19:45)
[2024-06-07 19:46] VITALS: BP 140/85; TEMP 98.1; O2SAT 92
[2024-06-08] VITALS (8 sets, daily range): BP systolic 147–167; BP diastolic 60–97; TEMP 97.3–98.4; O2SAT 90–95
[2024-06-08 06:04] LABS: BASO # 0.1 10^3/uL (0.0-0.2); BASO % 0.2 % (0.0-1.0); HEMATOCRIT 37.8 % (36.0-47.0); HEMOGLOBIN 11.7 g/dl (12.0-15.5); LYMPH % 4.3 % (24.0-44.0); MEAN CORPUSCULAR HEMOGLOBIN 29.3 pg (27.0-33.0); MEAN CORPUSCULAR VOLUME 94.7 fl (80.0-96.0); MONO # 0.9 10^3/uL (0.0-0.8); NEUTROPHILS # 20.7 10^3/uL (1.5-8.5); NEUTROPHILS % 88.8 % (36.0-66.0); PLATELET COUNT, AUTOMATED 495 10^3/uL (150-450); RED BLOOD COUNT 3.99 10^6/uL (4.00-5.40); WHITE BLOOD COUNT 23.3 10^3/uL (4.0-10.0)
[2024-06-08 06:24] LABS: BLOOD UREA NITROGEN 19 MG/DL (9-23); CALCIUM LEVEL 9.8 MG/DL (8.3-10.6); CARBON DIOXIDE LEVEL 30 MMOL/L (20-31); CHLORIDE LEVEL 105 MMOL/L (98-107); CREATININE FOR GFR 0.69 MG/DL (0.55-1.30); GLOMERULAR FILTRATION RATE > 60.0 (>32); GLUCOSE, FASTING 130 MG/DL (74-106); POTASSIUM SERUM 4.5 MMOL/L (3.5-5.1); SODIUM LEVEL 143 MMOL/L (136-145)
[2024-06-08] MEDS: predniSONE 20 MG TAB PO SCH (11:48)
[2024-06-08] MEDS: MEROPENEM INJ 1 GM in IV 1 EA IV SCH (11:48)
[2024-06-08] MEDS: BUDESONIDE 0.5 MG/2 ML INHALATION SUSPENSION NEB SCH (13:32)
[2024-06-09] VITALS (8 sets, daily range): BP systolic 153–173; BP diastolic 92–110; TEMP 97.5–97.9; O2SAT 88–94
[2024-06-09 06:45] LABS: BASO # 0.1 10^3/uL (0.0-0.2); BASO % 0.4 % (0.0-1.0); HEMATOCRIT 39.7 % (36.0-47.0); HEMOGLOBIN 12.1 g/dl (12.0-15.5); LYMPH # 2.2 10^3/uL (1.5-5.0); LYMPH % 10.9 % (24.0-44.0); MEAN CORPUSCULAR HEMOGLOBIN 28.7 pg (27.0-33.0); MEAN CORPUSCULAR HGB CONC 30.5 g/dl (32.0-36.5); MEAN CORPUSCULAR VOLUME 94.1 fl (80.0-96.0); MONO # 1.8 10^3/uL (0.0-0.8); NEUTROPHILS # 15.2 10^3/uL (1.5-8.5); NEUTROPHILS % 75.9 % (36.0-66.0); PLATELET COUNT, AUTOMATED 507 10^3/uL (150-450); RED BLOOD COUNT 4.22 10^6/uL (4.00-5.40); WHITE BLOOD COUNT 20.1 10^3/uL (4.0-10.0)
[2024-06-09 07:06] LABS: BLOOD UREA NITROGEN 16 MG/DL (9-23); CALCIUM LEVEL 9.5 MG/DL (8.3-10.6); CARBON DIOXIDE LEVEL 30 MMOL/L (20-31); CHLORIDE LEVEL 107 MMOL/L (98-107); GLOMERULAR FILTRATION RATE > 60.0 (>32); GLUCOSE, FASTING 84 MG/DL (74-106); SODIUM LEVEL 143 MMOL/L (136-145)
[2024-06-09] MEDS: LOSARTAN 50MG TABLET PO SCH ×2 (10:44→20:19)
[2024-06-09] MEDS: MAGNESIUM CITRATE 300ML BTL PO SCH (13:36)
[2024-06-10] VITALS (8 sets, daily range): BP systolic 137–186; BP diastolic 87–96; TEMP 96.4–98.1; O2SAT 91–98
[2024-06-10 06:10] LABS: BASO # 0.2 10^3/uL (0.0-0.2); BASO % 0.7 % (0.0-1.0); HEMATOCRIT 37.7 % (36.0-47.0); HEMOGLOBIN 11.6 g/dl (12.0-15.5); LYMPH # 3.9 10^3/uL (1.5-5.0); LYMPH % 17.1 % (24.0-44.0); MEAN CORPUSCULAR HEMOGLOBIN 28.8 pg (27.0-33.0); MEAN CORPUSCULAR HGB CONC 30.8 g/dl (32.0-36.5); MEAN CORPUSCULAR VOLUME 93.5 fl (80.0-96.0); MONO # 1.8 10^3/uL (0.0-0.8); MONO % 7.9 % (2.0-8.0); NEUTROPHILS # 16.3 10^3/uL (1.5-8.5); NEUTROPHILS % 71.1 % (36.0-66.0); PLATELET COUNT, AUTOMATED 419 10^3/uL (150-450); RED BLOOD COUNT 4.03 10^6/uL (4.00-5.40); WHITE BLOOD COUNT 22.9 10^3/uL (4.0-10.0)
[2024-06-10 06:27] LABS: BLOOD UREA NITROGEN 13 MG/DL (9-23); CALCIUM LEVEL 8.5 MG/DL (8.3-10.6); CARBON DIOXIDE LEVEL 29 MMOL/L (20-31); CHLORIDE LEVEL 109 MMOL/L (98-107); CREATININE FOR GFR 0.62 MG/DL (0.55-1.30); GLOMERULAR FILTRATION RATE > 60.0 (>32); GLUCOSE, FASTING 80 MG/DL (74-106); POTASSIUM SERUM 3.8 MMOL/L (3.5-5.1); SODIUM LEVEL 143 MMOL/L (136-145)
[2024-06-10] MEDS: **hydrALAZINE HCL** 25 MG TAB PO PRN (09:55)
[2024-06-10] MEDS: MOM 30ML SUSPENSION UDC PO SCH (11:34)
[2024-06-10] MEDS: DOCUSATE SODIUM 100MG CAPSULE PO SCH (11:35)
[2024-06-10] MEDS: SENNA 8.6 MG TAB (SENOKOT) PO SCH (11:35)
[2024-06-11] VITALS (21 sets, daily range): BP systolic 127–169; BP diastolic 72–96; TEMP 96.8–97.5; O2SAT 76–97
[2024-06-11 06:16] LABS: BASO # 0.1 10^3/uL (0.0-0.2); BASO % 0.4 % (0.0-1.0); HEMATOCRIT 40.1 % (36.0-47.0); HEMOGLOBIN 12.6 g/dl (12.0-15.5); LYMPH # 3.5 10^3/uL (1.5-5.0); LYMPH % 15.6 % (24.0-44.0); MEAN CORPUSCULAR HGB CONC 31.4 g/dl (32.0-36.5); MEAN CORPUSCULAR VOLUME 92.2 fl (80.0-96.0); NEUTROPHILS # 16.1 10^3/uL (1.5-8.5); NEUTROPHILS % 71.8 % (36.0-66.0); PLATELET COUNT, AUTOMATED 421 10^3/uL (150-450); RED BLOOD COUNT 4.35 10^6/uL (4.00-5.40); WHITE BLOOD COUNT 22.4 10^3/uL (4.0-10.0)
[2024-06-11 06:48] LABS: BLOOD UREA NITROGEN 15 MG/DL (9-23); CALCIUM LEVEL 9.4 MG/DL (8.3-10.6); CARBON DIOXIDE LEVEL 35 MMOL/L (20-31); CHLORIDE LEVEL 107 MMOL/L (98-107); CREATININE FOR GFR 0.81 MG/DL (0.55-1.30); GLOMERULAR FILTRATION RATE > 60.0 (>32); GLUCOSE, FASTING 95 MG/DL (74-106); POTASSIUM SERUM 3.3 MMOL/L (3.5-5.1); SODIUM LEVEL 147 MMOL/L (136-145)
[2024-06-11] MEDS: D5W 1,000 ML IV SCH (08:11)
[2024-06-11] MEDS: POTASSIUM CHLORIDE 10MEQ SR TABLET PO ONE (08:12)
[2024-06-11 13:54] LABS: BLOOD UREA NITROGEN 15 MG/DL (9-23); CALCIUM LEVEL 9.5 MG/DL (8.3-10.6); CARBON DIOXIDE LEVEL 32 MMOL/L (20-31); CHLORIDE LEVEL 103 MMOL/L (98-107); CREATININE FOR GFR 0.75 MG/DL (0.55-1.30); GLOMERULAR FILTRATION RATE > 60.0 (>32); GLUCOSE, FASTING 146 MG/DL (74-106); POTASSIUM SERUM 4.4 MMOL/L (3.5-5.1); SODIUM LEVEL 143 MMOL/L (136-145)
[2024-06-11 18:10] LABS: ALBUMIN 2.8 G/DL (3.2-5.2); BILIRUBIN,DIRECT 0.1 MG/DL (<0.4); BILIRUBIN,TOTAL 0.4 MG/DL (0.3-1.2); MAGNESIUM LEVEL 3.5 MG/DL (1.8-2.4); PHOSPHORUS LEVEL 2.9 MG/DL (2.4-5.1); TOTAL PROTEIN 7.1 G/DL (5.7-8.2)
[2024-06-11] MEDS: LEVALBUTEROL 1.25MG 0.5ML CONCENTRATE NEB INH PRN (22:50)
[2024-06-12] VITALS (28 sets, daily range): BP systolic 115–162; BP diastolic 68–92; TEMP 96.9–98.2; O2SAT 85–100
[2024-06-12] MEDS ORDERED: propofoL 200 MG/20 ML VIAL As Ordered ONE (06:11)
[2024-06-12] MEDS ORDERED: LIDOCAINE 2% 100MG/5ML SDV (FOR ANES.) As Ordered ONE (06:11)
[2024-06-12] MEDS ORDERED: ROCURONIUM BROMIDE 50MG/5ML VIAL As Ordered ONE (06:11)
[2024-06-12] MEDS ORDERED: ONDANSETRON 4MG 2ML VIAL As Ordered ONE (06:11)
[2024-06-12] MEDS ORDERED: GLYCOPYRROLATE INJ 0.2 MG/ML 2 ML VIAL As Ordered ONE (06:12)
[2024-06-12] MEDS ORDERED: ACETAMINOPHEN 1000MG/100ML IV BAG As Ordered ONE (06:12)
[2024-06-12] MEDS ORDERED: fentaNYL 100 MCG/2 ML INJECTION As Ordered ONE (06:14)
[2024-06-12 06:51] LABS: BASO # 0.1 10^3/uL (0.0-0.2); BASO % 0.4 % (0.0-1.0); EOS % 0.1 % (0.0-3.0); HEMATOCRIT 41.3 % (36.0-47.0); LYMPH # 4.6 10^3/uL (1.5-5.0); LYMPH % 23.6 % (24.0-44.0); MEAN CORPUSCULAR HEMOGLOBIN 29.3 pg (27.0-33.0); MEAN CORPUSCULAR HGB CONC 31.5 g/dl (32.0-36.5); MONO # 1.6 10^3/uL (0.0-0.8); NEUTROPHILS # 12.7 10^3/uL (1.5-8.5); PLATELET COUNT, AUTOMATED 436 10^3/uL (150-450); RED BLOOD COUNT 4.44 10^6/uL (4.00-5.40); WHITE BLOOD COUNT 19.5 10^3/uL (4.0-10.0)
[2024-06-12] MEDS ORDERED: MIDAZOLAM INJ 2MG/2ML VIAL As Ordered ONE (07:40)
[2024-06-12 07:44] LABS: ALBUMIN 2.5 G/DL (3.2-5.2); ALKALINE PHOSPHATASE 88 U/L (35-104); ALT/SGPT 14 U/L (7.0-40); AST/SGOT 9 U/L (<34); BILIRUBIN,TOTAL 0.3 MG/DL (0.3-1.2); BLOOD UREA NITROGEN 17 MG/DL (9-23); CALCIUM LEVEL 9.5 MG/DL (8.3-10.6); CARBON DIOXIDE LEVEL 32 MMOL/L (20-31); CHLORIDE LEVEL 104 MMOL/L (98-107); CREATININE FOR GFR 0.82 MG/DL (0.55-1.30); GLOMERULAR FILTRATION RATE > 60.0 (>32); GLUCOSE, FASTING 83 MG/DL (74-106); MAGNESIUM LEVEL 3.2 MG/DL (1.8-2.4); PHOSPHORUS LEVEL 3.4 MG/DL (2.4-5.1); POTASSIUM SERUM 3.9 MMOL/L (3.5-5.1); SODIUM LEVEL 145 MMOL/L (136-145); TOTAL PROTEIN 6.3 G/DL (5.7-8.2)
[2024-06-12] MEDS ORDERED: KETAMINE HCL 200MG/20ML VIAL As Ordered ONE (08:42)
[2024-06-12] MEDS ORDERED: hydrALAZINE 20MG/ML 1ML VIAL As Ordered ONE (09:18)
[2024-06-12] MEDS ORDERED: SUGAMMADEX SODIUM 500 MG/5 ML VIAL (BRIDION) As Ordered ONE (09:29)
[2024-06-12] MEDS ORDERED: HYDROMORPHONE HCL 0.5 MG/ 0.5 ML SYRINGE IV PRN (09:45)
[2024-06-12] MEDS ORDERED: oxyCODONE 5MG TAB PO PRN (09:45)
[2024-06-12] MEDS ORDERED: fentaNYL 100 MCG/2 ML INJECTION IV PRN (09:45)
[2024-06-12] MEDS ORDERED: ONDANSETRON 4MG 2ML VIAL IV PRN (09:45)
[2024-06-12 10:51] LABS: ABG BASE EXCESS 6.6 (-2.0-2.0); ABG HCO3 31.5 MMOL/L (22.0-26.0); ABG O2 SATURATION 97.5 % (95.0-99.0); ABG PARTIAL PRESSURE CO2 46.1 mmHg (35.0-45.0); ABG PARTIAL PRESSURE O2 98.2 mmHg (75.0-100.0); ABG STANDARD HCO3 30.4 MMOL/L. (22.0-26.0); ABG TOTAL CO2 32.9 MMOL/L (23.0-31.0); ABG pH (ARTERIAL) 7.452 UNITS (7.350-7.450)
[2024-06-12] MEDS: NS 1,000 ML IV SCH (12:07)
[2024-06-12] MEDS: AMINO AC/ELECTROLYTE/DEX/CALC 1,000 ML IV SCH (18:36)
[2024-06-12] MEDS: FAT EMULSION IV 250 ML IV ONE (18:43)
[2024-06-12] MEDS: INSULIN LISPRO (NovoLOG) PER UNIT SC SCH (18:52)
[2024-06-13] VITALS (11 sets, daily range): BP systolic 128–145; BP diastolic 78–88; TEMP 97.5–98.4; O2SAT 89–96
[2024-06-13 06:31] LABS: ALBUMIN 2.1 G/DL (3.2-5.2); ALKALINE PHOSPHATASE 74 U/L (35-104); ALT/SGPT 12 U/L (7.0-40); AST/SGOT 8 U/L (<34); BILIRUBIN,TOTAL 0.4 MG/DL (0.3-1.2); BLOOD UREA NITROGEN 20 MG/DL (9-23); CALCIUM LEVEL 8.4 MG/DL (8.3-10.6); CARBON DIOXIDE LEVEL 32 MMOL/L (20-31); CHLORIDE LEVEL 107 MMOL/L (98-107); CREATININE FOR GFR 0.76 MG/DL (0.55-1.30); GLOMERULAR FILTRATION RATE > 60.0 (>32); GLUCOSE, FASTING 106 MG/DL (74-106); MAGNESIUM LEVEL 2.3 MG/DL (1.8-2.4); PHOSPHORUS LEVEL 3.8 MG/DL (2.4-5.1); POTASSIUM SERUM 4.1 MMOL/L (3.5-5.1); SODIUM LEVEL 141 MMOL/L (136-145); TOTAL PROTEIN 5.1 G/DL (5.7-8.2)
[2024-06-13 06:40] LABS: BASO # 0.1 10^3/uL (0.0-0.2); BASO % 0.3 % (0.0-1.0); HEMATOCRIT 35.4 % (36.0-47.0); HEMOGLOBIN 11.2 g/dl (12.0-15.5); LYMPH % 11.6 % (24.0-44.0); MEAN CORPUSCULAR HEMOGLOBIN 29.3 pg (27.0-33.0); MEAN CORPUSCULAR HGB CONC 31.6 g/dl (32.0-36.5); MEAN CORPUSCULAR VOLUME 92.7 fl (80.0-96.0); MONO # 1.4 10^3/uL (0.0-0.8); MONO % 7.9 % (2.0-8.0); NEUTROPHILS # 13.5 10^3/uL (1.5-8.5); NEUTROPHILS % 78.3 % (36.0-66.0); RED BLOOD COUNT 3.82 10^6/uL (4.00-5.40); WHITE BLOOD COUNT 17.2 10^3/uL (4.0-10.0)
[2024-06-13 06:48] LABS: PLATELET COUNT, AUTOMATED 331 10^3/uL (150-450)
[2024-06-13] MEDS: ADVAIR HFA 115/21MCG INHALER INH SCH (08:00)
[2024-06-13] MEDS: methylPREDNISolone 40MG 1ML VIAL IV SCH (09:26)
[2024-06-13] MEDS: INSULIN LISPRO (NovoLOG) PER UNIT SC SCH (18:24)
[2024-06-13] MEDS: FAT EMULSION IV 250 ML IV ONE (18:24)
[2024-06-14] VITALS (8 sets, daily range): BP systolic 135–156; BP diastolic 77–88; TEMP 97.7–97.9; O2SAT 85–97
[2024-06-14 05:01] LABS: BASO % 0.2 % (0.0-1.0); HEMATOCRIT 35.9 % (36.0-47.0); HEMOGLOBIN 11.4 g/dl (12.0-15.5); LYMPH # 1.5 10^3/uL (1.5-5.0); LYMPH % 8.9 % (24.0-44.0); MEAN CORPUSCULAR HEMOGLOBIN 29.2 pg (27.0-33.0); MEAN CORPUSCULAR HGB CONC 31.8 g/dl (32.0-36.5); MEAN CORPUSCULAR VOLUME 91.8 fl (80.0-96.0); MONO # 1.4 10^3/uL (0.0-0.8); MONO % 8.2 % (2.0-8.0); NEUTROPHILS # 13.9 10^3/uL (1.5-8.5); NEUTROPHILS % 80.6 % (36.0-66.0); PLATELET COUNT, AUTOMATED 324 10^3/uL (150-450); RED BLOOD COUNT 3.91 10^6/uL (4.00-5.40); WHITE BLOOD COUNT 17.2 10^3/uL (4.0-10.0)
[2024-06-14 05:33] LABS: ALKALINE PHOSPHATASE 76 U/L (35-104); ALT/SGPT 13 U/L (7.0-40); AST/SGOT 11 U/L (<34); BILIRUBIN,TOTAL 0.3 MG/DL (0.3-1.2); BLOOD UREA NITROGEN 23 MG/DL (9-23); CALCIUM LEVEL 9.2 MG/DL (8.3-10.6); CARBON DIOXIDE LEVEL 30 MMOL/L (20-31); CHLORIDE LEVEL 104 MMOL/L (98-107); CREATININE FOR GFR 0.68 MG/DL (0.55-1.30); GLOMERULAR FILTRATION RATE > 60.0 (>32); GLUCOSE, FASTING 103 MG/DL (74-106); POTASSIUM SERUM 4.5 MMOL/L (3.5-5.1); SODIUM LEVEL 141 MMOL/L (136-145); TOTAL PROTEIN 5.5 G/DL (5.7-8.2)
[2024-06-14] MEDS: TIOTROPIUM INHALER/CAPSULE (SPIRIVA) INH SCH (07:11)
[2024-06-14] MEDS: AUGMENTIN 875 MG TAB PO SCH (12:18)
[2024-06-14] MEDS: amLODIPine 5 MG TAB PO ONE (12:20)
[2024-06-14] MEDS: INSULIN LISPRO (NovoLOG) PER UNIT SC SCH (18:41)
[2024-06-14] MEDS: FAT EMULSION IV 250 ML IV ONE (18:42)
[2024-06-15] VITALS (13 sets, daily range): BP systolic 138–180; BP diastolic 63–90; TEMP 97.2–98.1; O2SAT 82–100
[2024-06-15] MEDS: amLODIPine 5 MG TAB PO ONE (03:44)
[2024-06-15 05:17] LABS: BASO # 0.1 10^3/uL (0.0-0.2); BASO % 0.4 % (0.0-1.0); HEMATOCRIT 36.5 % (36.0-47.0); HEMOGLOBIN 11.4 g/dl (12.0-15.5); LYMPH # 1.4 10^3/uL (1.5-5.0); LYMPH % 10.1 % (24.0-44.0); MEAN CORPUSCULAR HEMOGLOBIN 29.1 pg (27.0-33.0); MEAN CORPUSCULAR HGB CONC 31.2 g/dl (32.0-36.5); MEAN CORPUSCULAR VOLUME 93.1 fl (80.0-96.0); MONO % 7.1 % (2.0-8.0); NEUTROPHILS # 11.2 10^3/uL (1.5-8.5); PLATELET COUNT, AUTOMATED 314 10^3/uL (150-450); RED BLOOD COUNT 3.92 10^6/uL (4.00-5.40)
[2024-06-15 05:34] LABS: ALBUMIN 2.1 G/DL (3.2-5.2); ALKALINE PHOSPHATASE 77 U/L (35-104); ALT/SGPT 14 U/L (7.0-40); AST/SGOT 15 U/L (<34); BILIRUBIN,TOTAL 0.2 MG/DL (0.3-1.2); BLOOD UREA NITROGEN 23 MG/DL (9-23); CALCIUM LEVEL 8.9 MG/DL (8.3-10.6); CARBON DIOXIDE LEVEL 24 MMOL/L (20-31); CHLORIDE LEVEL 109 MMOL/L (98-107); GLOMERULAR FILTRATION RATE > 60.0 (>32); GLUCOSE, FASTING 119 MG/DL (74-106); MAGNESIUM LEVEL 1.8 MG/DL (1.8-2.4); PHOSPHORUS LEVEL 3.4 MG/DL (2.4-5.1); POTASSIUM SERUM 4.9 MMOL/L (3.5-5.1); SODIUM LEVEL 138 MMOL/L (136-145); TOTAL PROTEIN 5.4 G/DL (5.7-8.2)
[2024-06-15] MEDS ORDERED: amLODIPine 5 MG TAB PO SCH (09:00)
[2024-06-15] MEDS: predniSONE 20 MG TAB PO SCH (09:21)
[2024-06-15] MEDS: ENOXAPARIN 40MG/0.4ML SYRINGE (J1650 PER 10MG) SC SCH (09:22)
[2024-06-15 12:06] LABS: ABG BASE EXCESS 2.8 (-2.0-2.0); ABG HCO3 25.5 MMOL/L (22.0-26.0); ABG O2 SATURATION 84.1 % (95.0-99.0); ABG PARTIAL PRESSURE CO2 33.5 mmHg (35.0-45.0); ABG STANDARD HCO3 26.6 MMOL/L. (22.0-26.0); ABG TOTAL CO2 26.6 MMOL/L (23.0-31.0)
[2024-06-15 12:09] LABS: ABG PARTIAL PRESSURE O2 43.5 mmHg (75.0-100.0)
[2024-06-15] MEDS: ALBUTEROL SULFATE 2.5MG/0.5ML INH NEB SOLN NEB SCH (15:24)
[2024-06-15] MEDS: ACETYLCYSTEINE 20% 4 ML VIAL (200MG/ML) INH SCH (15:25)
[2024-06-15] MEDS: BUDESONIDE 0.25 MG/2 ML INHALATION SUSPENSION INH SCH (15:25)
[2024-06-15] MEDS: methylPREDNISolone 40MG 1ML VIAL IV SCH (16:18)
[2024-06-16] VITALS (18 sets, daily range): BP systolic 107–198; BP diastolic 52–94; TEMP 97–99.8; O2SAT 88–99
[2024-06-16 06:36] LABS: BASO # 0.1 10^3/uL (0.0-0.2); BASO % 0.5 % (0.0-1.0); HEMATOCRIT 38.1 % (36.0-47.0); HEMOGLOBIN 11.9 g/dl (12.0-15.5); LYMPH # 1.1 10^3/uL (1.5-5.0); MEAN CORPUSCULAR HEMOGLOBIN 28.7 pg (27.0-33.0); MEAN CORPUSCULAR HGB CONC 31.2 g/dl (32.0-36.5); MONO # 0.5 10^3/uL (0.0-0.8); MONO % 4.4 % (2.0-8.0); NEUTROPHILS # 8.6 10^3/uL (1.5-8.5); NEUTROPHILS % 81.3 % (36.0-66.0); PLATELET COUNT, AUTOMATED 353 10^3/uL (150-450); RED BLOOD COUNT 4.14 10^6/uL (4.00-5.40); WHITE BLOOD COUNT 10.6 10^3/uL (4.0-10.0)
[2024-06-16 07:08] LABS: ALBUMIN 2.3 G/DL (3.2-5.2); ALKALINE PHOSPHATASE 81 U/L (35-104); ALT/SGPT 18 U/L (7.0-40); AST/SGOT 13 U/L (<34); BILIRUBIN,TOTAL 0.4 MG/DL (0.3-1.2); BLOOD UREA NITROGEN 23 MG/DL (9-23); CALCIUM LEVEL 9.3 MG/DL (8.3-10.6); CARBON DIOXIDE LEVEL 27 MMOL/L (20-31); CHLORIDE LEVEL 107 MMOL/L (98-107); CREATININE FOR GFR 0.56 MG/DL (0.55-1.30); GLOMERULAR FILTRATION RATE > 60.0 (>32); GLUCOSE, FASTING 112 MG/DL (74-106); MAGNESIUM LEVEL 1.9 MG/DL (1.8-2.4); PHOSPHORUS LEVEL 3.4 MG/DL (2.4-5.1); POTASSIUM SERUM 4.9 MMOL/L (3.5-5.1); SODIUM LEVEL 143 MMOL/L (136-145); TOTAL PROTEIN 5.7 G/DL (5.7-8.2)
[2024-06-17] VITALS (14 sets, daily range): BP systolic 114–168; BP diastolic 56–77; TEMP 97.2–98.5; O2SAT 86–99
[2024-06-17 06:39] LABS: BASO % 0.1 % (0.0-1.0); HEMATOCRIT 34.7 % (36.0-47.0); HEMOGLOBIN 10.8 g/dl (12.0-15.5); LYMPH # 4.5 10^3/uL (1.5-5.0); LYMPH % 27.6 % (24.0-44.0); MEAN CORPUSCULAR HEMOGLOBIN 29.3 pg (27.0-33.0); MEAN CORPUSCULAR HGB CONC 31.1 g/dl (32.0-36.5); MEAN CORPUSCULAR VOLUME 94.3 fl (80.0-96.0); MONO # 1.8 10^3/uL (0.0-0.8); MONO % 11.1 % (2.0-8.0); NEUTROPHILS # 9.6 10^3/uL (1.5-8.5); NEUTROPHILS % 59.2 % (36.0-66.0); PLATELET COUNT, AUTOMATED 351 10^3/uL (150-450); RED BLOOD COUNT 3.68 10^6/uL (4.00-5.40); WHITE BLOOD COUNT 16.2 10^3/uL (4.0-10.0)
[2024-06-17 07:14] LABS: ALBUMIN 2.2 G/DL (3.2-5.2); ALKALINE PHOSPHATASE 70 U/L (35-104); ALT/SGPT 15 U/L (7.0-40); AST/SGOT 11 U/L (<34); BILIRUBIN,TOTAL 0.4 MG/DL (0.3-1.2); BLOOD UREA NITROGEN 35 MG/DL (9-23); CALCIUM LEVEL 9.1 MG/DL (8.3-10.6); CARBON DIOXIDE LEVEL 29 MMOL/L (20-31); CHLORIDE LEVEL 110 MMOL/L (98-107); CREATININE FOR GFR 0.74 MG/DL (0.55-1.30); GLOMERULAR FILTRATION RATE > 60.0 (>32); GLUCOSE, FASTING 89 MG/DL (74-106); MAGNESIUM LEVEL 1.8 MG/DL (1.8-2.4); PHOSPHORUS LEVEL 3.2 MG/DL (2.4-5.1); POTASSIUM SERUM 4.5 MMOL/L (3.5-5.1); SODIUM LEVEL 146 MMOL/L (136-145); TOTAL PROTEIN 5.1 G/DL (5.7-8.2)
[2024-06-17] MEDS: predniSONE 20 MG TAB PO SCH (09:43)
[2024-06-18 04:13] VITALS: BP 138/70; TEMP 97.3; O2SAT 94
[2024-06-18 08:25] VITALS: BP 122/60; TEMP 97.5; O2SAT 95
[2024-06-18 08:36] LABS: BASO # 0.1 10^3/uL (0.0-0.2); BASO % 0.3 % (0.0-1.0); EOS % 0.1 % (0.0-3.0); HEMATOCRIT 38.2 % (36.0-47.0); HEMOGLOBIN 11.8 g/dl (12.0-15.5); LYMPH # 5.1 10^3/uL (1.5-5.0); LYMPH % 27.5 % (24.0-44.0); MEAN CORPUSCULAR HEMOGLOBIN 28.8 pg (27.0-33.0); MEAN CORPUSCULAR HGB CONC 30.9 g/dl (32.0-36.5); MEAN CORPUSCULAR VOLUME 93.2 fl (80.0-96.0); MONO # 1.4 10^3/uL (0.0-0.8); MONO % 7.6 % (2.0-8.0); NEUTROPHILS # 11.5 10^3/uL (1.5-8.5); NEUTROPHILS % 62.2 % (36.0-66.0); PLATELET COUNT, AUTOMATED 387 10^3/uL (150-450); WHITE BLOOD COUNT 18.5 10^3/uL (4.0-10.0)
[2024-06-18 09:03] LABS: ALBUMIN 2.4 G/DL (3.2-5.2); ALKALINE PHOSPHATASE 82 U/L (35-104); ALT/SGPT 20 U/L (7.0-40); AST/SGOT 10 U/L (<34); BILIRUBIN,TOTAL 0.3 MG/DL (0.3-1.2); BLOOD UREA NITROGEN 27 MG/DL (9-23); CALCIUM LEVEL 9.3 MG/DL (8.3-10.6); CARBON DIOXIDE LEVEL 26 MMOL/L (20-31); CHLORIDE LEVEL 111 MMOL/L (98-107); CREATININE FOR GFR 0.61 MG/DL (0.55-1.30); GLOMERULAR FILTRATION RATE > 60.0 (>32); GLUCOSE, FASTING 124 MG/DL (74-106); MAGNESIUM LEVEL 1.6 MG/DL (1.8-2.4); PHOSPHORUS LEVEL 2.5 MG/DL (2.4-5.1); POTASSIUM SERUM 3.7 MMOL/L (3.5-5.1); SODIUM LEVEL 144 MMOL/L (136-145); TOTAL PROTEIN 5.9 G/DL (5.7-8.2)
[2024-06-18 11:09] LABS: C REACTIVE PROTEIN QUANTITATIV < 0.50 MG/DL (<1.0)
[2024-06-18 11:52] VITALS: BP 164/67; TEMP 97.3; O2SAT 96
[2024-06-18 16:00] VITALS: BP 121/61; TEMP 98.5; O2SAT 96
[2024-06-18 20:00] VITALS: BP 144/64; TEMP 97.9; O2SAT 91
[2024-06-19 04:00] VITALS: BP 141/68; TEMP 98; O2SAT 95
[2024-06-19 08:06] LABS: HEMATOCRIT 37.8 % (36.0-47.0); HEMOGLOBIN 11.5 g/dl (12.0-15.5); MEAN CORPUSCULAR HEMOGLOBIN 28.9 pg (27.0-33.0); MEAN CORPUSCULAR HGB CONC 30.4 g/dl (32.0-36.5); PLATELET COUNT, AUTOMATED 346 10^3/uL (150-450); RED BLOOD COUNT 3.98 10^6/uL (4.00-5.40); WHITE BLOOD COUNT 23.7 10^3/uL (4.0-10.0)
[2024-06-19 08:09] VITALS: BP 135/75; TEMP 98; O2SAT 92
[2024-06-19 08:37] LABS: ALBUMIN 2.5 G/DL (3.2-5.2); ALKALINE PHOSPHATASE 80 U/L (35-104); ALT/SGPT 26 U/L (7.0-40); AST/SGOT 13 U/L (<34); BILIRUBIN,TOTAL 0.4 MG/DL (0.3-1.2); BLOOD UREA NITROGEN 26 MG/DL (9-23); CALCIUM LEVEL 9.1 MG/DL (8.3-10.6); CARBON DIOXIDE LEVEL 25 MMOL/L (20-31); CHLORIDE LEVEL 110 MMOL/L (98-107); CREATININE FOR GFR 0.59 MG/DL (0.55-1.30); GLOMERULAR FILTRATION RATE > 60.0 (>32); GLUCOSE, FASTING 85 MG/DL (74-106); SODIUM LEVEL 143 MMOL/L (136-145); TOTAL PROTEIN 5.8 G/DL (5.7-8.2)
[2024-06-19] MEDS: predniSONE 20 MG TAB PO SCH (09:35)
[2024-06-19] MEDS: MAG SULF 1GM/100ML (MAG RUN) 1 GM in IV 1 EA IV SCH (12:40)
[2024-06-19] MEDS: MAGNESIUM OXIDE 400MG TAB (MAG-OX) PO SCH (12:40)
[2024-06-19 16:00] VITALS: BP 145/65; TEMP 97.6; O2SAT 89
[2024-06-19 20:00] VITALS: BP 130/60; TEMP 97.8; O2SAT 91
[2024-06-20] VITALS: BP 140/82; TEMP 97.7; O2SAT 100
[2024-06-20 04:00] VITALS: BP 130/67; TEMP 96.7; O2SAT 92
[2024-06-20 06:06] LABS: HEMATOCRIT 37.8 % (36.0-47.0); HEMOGLOBIN 11.7 g/dl (12.0-15.5); MEAN CORPUSCULAR VOLUME 93.8 fl (80.0-96.0); PLATELET COUNT, AUTOMATED 327 10^3/uL (150-450); RED BLOOD COUNT 4.03 10^6/uL (4.00-5.40); WHITE BLOOD COUNT 21.4 10^3/uL (4.0-10.0)
[2024-06-20 06:35] LABS: ALBUMIN 2.4 G/DL (3.2-5.2); ALKALINE PHOSPHATASE 84 U/L (35-104); ALT/SGPT 28 U/L (7.0-40); AST/SGOT 17 U/L (<34); BILIRUBIN,TOTAL 0.4 MG/DL (0.3-1.2); BLOOD UREA NITROGEN 25 MG/DL (9-23); CALCIUM LEVEL 8.7 MG/DL (8.3-10.6); CARBON DIOXIDE LEVEL 20 MMOL/L (20-31); CHLORIDE LEVEL 110 MMOL/L (98-107); CREATININE FOR GFR 0.63 MG/DL (0.55-1.30); GLOMERULAR FILTRATION RATE > 60.0 (>32); GLUCOSE, FASTING 75 MG/DL (74-106); POTASSIUM SERUM 4.4 MMOL/L (3.5-5.1); SODIUM LEVEL 143 MMOL/L (136-145); TOTAL PROTEIN 5.8 G/DL (5.7-8.2)
[2024-06-20 08:27] LABS: MAGNESIUM LEVEL 1.7 MG/DL (1.8-2.4)
[2024-06-20 08:49] VITALS: BP 142/63
[2024-06-20 12:00] VITALS: BP 126/60; TEMP 97; O2SAT 93
[2024-06-20] MEDS ORDERED: ATOR1TAB21 PO (14:41)
[2024-06-20] MEDS ORDERED: ALB2.5NEB NEB (14:41)
[2024-06-20] MEDS ORDERED: AMOX875T2 PO (14:41)
[2024-06-20] MEDS ORDERED: MAGN400T2 PO (14:41)
[2024-06-20] MEDS ORDERED: PRED10TA2 PO (14:41)
[2024-06-20] MEDS ORDERED: AMLO1TAB25 PO (14:41)
[2024-06-20] MEDS ORDERED: TIOT18INH INH (14:41)
[2024-06-20] MEDS ORDERED: PROB250C PO (14:56)
[2024-06-20] MEDS ORDERED: ALBU8.5H INH (15:05)
[2024-06-23] MEDS ORDERED: predniSONE 10MG TAB PO SCH (09:00)
== END 2024-06-20 16:28 | disposition home health service (06) | DRG 329 ==
LOC: M ED 17:10 → EEVIPCON 06-03 00:21 → M ED INP 06-03 00:21 → M MSPAV 06-03 01:36 → UNDODISIN 06-12 17:13 → M PCU 06-15 15:58
PROVIDERS: ADMIT Internal Medicine; ATTEND Internal Medicine
PROC: 0W9J30Z Drainage of Pelvic Cavity with Drainage Device, Percutaneous Approach (ICD-10-PCS; 2024-06-03)
PROC: 0D1M4Z4 Bypass Descending Colon to Cutaneous, Percutaneous Endoscopic Approach (ICD-10-PCS; principal; 2024-06-12 07:30)
DX: K57.80 Diverticulitis of intestine, part unspecified, with perforation and abscess without bleeding (principal); J96.01 Acute respiratory failure with hypoxia; K65.1 Peritoneal abscess; J98.11 Atelectasis; K63.2 Fistula of intestine; J44.1 Chronic obstructive pulmonary disease with (acute) exacerbation; E87.0 Hyperosmolality and hypernatremia; J90 Pleural effusion, not elsewhere classified; Z66 Do not resuscitate; I10 Essential (primary) hypertension; K44.9 Diaphragmatic hernia without obstruction or gangrene; K21.9 Gastro-esophageal reflux disease without esophagitis; Z85.828 Personal history of other malignant neoplasm of skin; F17.210 Nicotine dependence, cigarettes, uncomplicated; R05.9 Cough, unspecified; Z79.82 Long term (current) use of aspirin; Z79.52 Long term (current) use of systemic steroids; Z79.899 Other long term (current) drug therapy; Z11.52 Encounter for screening for COVID-19; E83.42 Hypomagnesemia; E87.6 Hypokalemia

== ENCOUNTER 2024-07-15 16:53 | Inpatient (IN) | payer MEDICARE, MEDICAID ==
[~2024-07-15] VITALS: Ht 170.2 cm; Wt 56.4 kg
[~2024-07-15 16:53] MED LIST changes: +ALB2.5NEB NEB; +ALBU8.5H INH; +AMLO1TAB25 PO; +AMOX875T2 PO; +ASPI81CH33 PO; +ATOR1TAB21 PO; +LOSA100T46 PO; +MAGN400T2 PO; +ONDA-83 PO; +PRED10TA2 PO; +PROB250C PO; +TIOT18INH INH
[2024-07-15] MEDS: NS 500 ML IV ONE (17:54)
[2024-07-15 18:02] LABS: BASO # 0.2 10^3/uL (0.0-0.2); BASO % 0.7 % (0.0-1.0); EOS % 0.1 % (0.0-3.0); HEMOGLOBIN 12.5 g/dl (12.0-15.5); LYMPH # 2.9 10^3/uL (1.5-5.0); MEAN CORPUSCULAR HEMOGLOBIN 27.4 pg (27.0-33.0); MEAN CORPUSCULAR HGB CONC 31.3 g/dl (32.0-36.5); MEAN CORPUSCULAR VOLUME 87.7 fl (80.0-96.0); MONO # 2.2 10^3/uL (0.0-0.8); MONO % 8.5 % (2.0-8.0); NEUTROPHILS % 76.3 % (36.0-66.0); PLATELET COUNT, AUTOMATED 729 10^3/uL (150-450); RED BLOOD COUNT 4.56 10^6/uL (4.00-5.40); WHITE BLOOD COUNT 26.2 10^3/uL (4.0-10.0)
[2024-07-15] MEDS: LIDOCAINE 2% 5ML JELLY UROJET TOP ONE (18:30)
[2024-07-15 18:34] LABS: CK-MB VALUE MASS < 1.0 NG/ML (<3.6); LIPASE 20 U/L (12-53)
[2024-07-15 18:36] LABS: ALBUMIN 2.2 G/DL (3.2-5.2); ALKALINE PHOSPHATASE 121 U/L (35-104); ALT/SGPT 10 U/L (7.0-40); AMYLASE 25 U/L (30-118); AST/SGOT 12 U/L (<34); BILIRUBIN,DIRECT 0.2 MG/DL (<0.4); BILIRUBIN,TOTAL 0.5 MG/DL (0.3-1.2); BLOOD UREA NITROGEN 14 MG/DL (9-23); CALCIUM LEVEL 9.5 MG/DL (8.3-10.6); CARBON DIOXIDE LEVEL 28 MMOL/L (20-31); CHLORIDE LEVEL 103 MMOL/L (98-107); CPK CREATINE PHOSPHOKINASE 34 U/L (34-145); CREATININE FOR GFR 0.79 MG/DL (0.55-1.30); GLOMERULAR FILTRATION RATE > 60.0 (>32); GLUCOSE, FASTING 104 MG/DL (74-106); MB/CK RELATIVE INDEX 2.94 (< OR =4); POTASSIUM SERUM 3.9 MMOL/L (3.5-5.1); SODIUM LEVEL 143 MMOL/L (136-145)
[2024-07-15] MEDS ORDERED: SPIR1CAP INH (18:43)
[2024-07-15] MEDS ORDERED: ATOR1TAB21 PO (18:43)
[2024-07-15] MEDS ORDERED: FLOR250C PO (18:43)
[2024-07-15] MEDS ORDERED: AMLO1TAB24 PO (18:43)
[2024-07-15] MEDS ORDERED: MAG-400T7 PO (18:43)
[2024-07-15] MEDS: NS (Normal Saline) 0.9% 1,000 ML IV ONE (18:46)
[2024-07-15] MEDS ORDERED: HOME MED LIST COMPLETE! XX SCH (18:50)
[2024-07-15] MEDS: PIPERACILLIN/TAZOBACTAM SOD 4.5 GM in DEXTROSE 5% (D5W) ADV/MINI-BAG 50 ML IV ONE (19:31)
[2024-07-15 19:49] LABS: KETONE, URINE AUTO RFX NEGATIVE (NEGATIVE); LEUKOCYTE ESTERASE UR AUTO RFX NEGATIVE (NEGATIVE); NITRITE, URINE AUTO RFX NEGATIVE (NEGATIVE); RBC, URINE AUTO RFX 5 /HPF (0-3); SQUAM EPITHELIAL CELL UR AURFX 1 /HPF (0-6); WBC, URINE AUTO RFX 1 /HPF (0-3)
[2024-07-15] MEDS ORDERED: MAALOX 30 ML SUSP *UDC PO PRN (22:25)
[2024-07-15] MEDS ORDERED: MOM 30ML SUSPENSION UDC PO PRN (22:25)
[2024-07-15] MEDS ORDERED: ALBUTEROL 90 MCG/ACT 8GM HFA INHALER INH PRN (22:45)
[2024-07-15] MEDS: DOCUSATE SODIUM 100MG CAPSULE PO SCH (23:32)
[2024-07-15] MEDS: SODIUM CHLORIDE 0.9% 1000 ML IV STA (23:32)
[2024-07-16] VITALS: BP 156/72; TEMP 97.2; O2SAT 92
[2024-07-16] MEDS: PIPERACILLIN/TAZOBACTAM SOD 4.5 GM in DEXTROSE 5% (D5W) ADV/MINI-BAG 50 ML IV SCH (03:05)
[2024-07-16 03:08] VITALS: BP 152/64; TEMP 96.9
[2024-07-16 06:58] LABS: HEMATOCRIT 33.4 % (36.0-47.0); MEAN CORPUSCULAR HEMOGLOBIN 27.8 pg (27.0-33.0); MEAN CORPUSCULAR HGB CONC 31.4 g/dl (32.0-36.5); MEAN CORPUSCULAR VOLUME 88.4 fl (80.0-96.0); RED BLOOD COUNT 3.78 10^6/uL (4.00-5.40); WHITE BLOOD COUNT 20.8 10^3/uL (4.0-10.0)
[2024-07-16 07:01] LABS: HEMOGLOBIN 10.5 g/dl (12.0-15.5); PLATELET COUNT, AUTOMATED 541 10^3/uL (150-450)
[2024-07-16 07:29] LABS: PROCALCITONIN 0.13 ng/ml
[2024-07-16 07:34] LABS: ALBUMIN 1.7 G/DL (3.2-5.2); ALKALINE PHOSPHATASE 92 U/L (35-104); ALT/SGPT < 9 U/L (7.0-40); AST/SGOT 12 U/L (<34); BILIRUBIN,TOTAL 0.4 MG/DL (0.3-1.2); BLOOD UREA NITROGEN 11 MG/DL (9-23); CARBON DIOXIDE LEVEL 27 MMOL/L (20-31); CHLORIDE LEVEL 108 MMOL/L (98-107); CREATININE FOR GFR 0.74 MG/DL (0.55-1.30); GLOMERULAR FILTRATION RATE > 60.0 (>32); GLUCOSE, FASTING 94 MG/DL (74-106); MAGNESIUM LEVEL 1.3 MG/DL (1.8-2.4); POTASSIUM SERUM 3.2 MMOL/L (3.5-5.1); SODIUM LEVEL 145 MMOL/L (136-145); TOTAL PROTEIN 5.4 G/DL (5.7-8.2)
[2024-07-16 07:43] VITALS: BP 147/69; TEMP 97; O2SAT 92
[2024-07-16] MEDS: TIOTROPIUM INHALER/CAPSULE (SPIRIVA) INH SCH (07:46)
[2024-07-16] MEDS: ASPIRIN 81MG CHEW TABLET PO SCH (08:16)
[2024-07-16] MEDS: ATORVASTATIN 20 MG TAB PO SCH (08:22)
[2024-07-16] MEDS: LOSARTAN 50MG TABLET PO SCH (08:22)
[2024-07-16] MEDS: amLODIPine 5 MG TAB PO SCH (08:22)
[2024-07-16] MEDS: HEPARIN SOD (PORCINE) 5000UNITS/ML 1ML VIAL/SYRINGE SC SCH (08:23)
[2024-07-16] MEDS: PANTOPRAZOLE 40MG VIAL IV SCH (08:23)
[2024-07-16 10:32] LABS: CLOSTRIDIUM DIFFICILE PCR POSITIVE (NEGATIVE)
[2024-07-16 12:16] VITALS: BP 141/66; TEMP 97.2; O2SAT 90
[2024-07-16] MEDS ORDERED: LACTOBACILLUS ACIDOPHILUS CAP (BACID) PO SCH (12:30)
[2024-07-16] MEDS: MAG SULF 1GM/100ML (MAG RUN) 1 GM in IV 1 EA IV SCH (14:08)
[2024-07-16] MEDS: POTASSIUM CHLORIDE 10MEQ SR TABLET PO ONE (14:09)
[2024-07-16] MEDS: FIDAXOMICIN 200 MG TAB (DIFICID) PO SCH (14:35)
[2024-07-16 16:32] VITALS: BP 122/58; TEMP 97.4; O2SAT 94
[2024-07-16] MEDS: LACTOBACILLUS ACIDOPHILUS CAP (BACID) PO SCH (17:15)
[2024-07-16 20:03] VITALS: BP 142/67; TEMP 97.5; O2SAT 93
[2024-07-16] MEDS: ACETAMINOPHEN 325 MG TAB PO PRN (20:22)
[2024-07-16] MEDS: KETOROLAC 30 MG/ML 1ML VIAL IV ONE (23:17)
[2024-07-17] VITALS (7 sets, daily range): BP systolic 119–151; BP diastolic 58–82; TEMP 96.5–99.4; O2SAT 93–96
[2024-07-17] MEDS: ACETAMINOPHEN *IV* 1,000 MG in IV 1 EA IV ONE (01:31)
[2024-07-17 08:07] LABS: BASO # 0.2 10^3/uL (0.0-0.2); BASO % 0.8 % (0.0-1.0); EOS # 0.1 10^3/uL (0.0-0.5); EOS % 0.5 % (0.0-3.0); HEMATOCRIT 33.2 % (36.0-47.0); HEMOGLOBIN 10.1 g/dl (12.0-15.5); LYMPH # 2.4 10^3/uL (1.5-5.0); LYMPH % 12.9 % (24.0-44.0); MEAN CORPUSCULAR HEMOGLOBIN 26.9 pg (27.0-33.0); MEAN CORPUSCULAR HGB CONC 30.4 g/dl (32.0-36.5); MEAN CORPUSCULAR VOLUME 88.3 fl (80.0-96.0); MONO # 1.6 10^3/uL (0.0-0.8); MONO % 8.4 % (2.0-8.0); NEUTROPHILS # 13.6 10^3/uL (1.5-8.5); NEUTROPHILS % 73.2 % (36.0-66.0); PLATELET COUNT, AUTOMATED 606 10^3/uL (150-450); RED BLOOD COUNT 3.76 10^6/uL (4.00-5.40); WHITE BLOOD COUNT 18.6 10^3/uL (4.0-10.0)
[2024-07-17 08:27] LABS: BLOOD UREA NITROGEN 11 MG/DL (9-23); CALCIUM LEVEL 8.3 MG/DL (8.3-10.6); CARBON DIOXIDE LEVEL 28 MMOL/L (20-31); CHLORIDE LEVEL 108 MMOL/L (98-107); CREATININE FOR GFR 0.79 MG/DL (0.55-1.30); GLOMERULAR FILTRATION RATE > 60.0 (>32); GLUCOSE, FASTING 93 MG/DL (74-106); POTASSIUM SERUM 3.7 MMOL/L (3.5-5.1); SODIUM LEVEL 144 MMOL/L (136-145)
[2024-07-17] MEDS: ONDANSETRON 4MG TAB PO PRN (14:51)
[2024-07-18] VITALS (8 sets, daily range): BP systolic 117–148; BP diastolic 56–72; TEMP 97–99.5; O2SAT 92–94
[2024-07-18 05:54] LABS: BASO # 0.1 10^3/uL (0.0-0.2); BASO % 0.6 % (0.0-1.0); EOS # 0.1 10^3/uL (0.0-0.5); EOS % 0.4 % (0.0-3.0); HEMATOCRIT 34.9 % (36.0-47.0); HEMOGLOBIN 10.7 g/dl (12.0-15.5); LYMPH # 2.5 10^3/uL (1.5-5.0); LYMPH % 11.4 % (24.0-44.0); MEAN CORPUSCULAR HEMOGLOBIN 27.1 pg (27.0-33.0); MEAN CORPUSCULAR HGB CONC 30.7 g/dl (32.0-36.5); MEAN CORPUSCULAR VOLUME 88.4 fl (80.0-96.0); MONO # 1.3 10^3/uL (0.0-0.8); NEUTROPHILS # 17.5 10^3/uL (1.5-8.5); NEUTROPHILS % 78.6 % (36.0-66.0); PLATELET COUNT, AUTOMATED 623 10^3/uL (150-450); RED BLOOD COUNT 3.95 10^6/uL (4.00-5.40); WHITE BLOOD COUNT 22.2 10^3/uL (4.0-10.0)
[2024-07-18 06:22] LABS: BLOOD UREA NITROGEN 12 MG/DL (9-23); CALCIUM LEVEL 8.2 MG/DL (8.3-10.6); CARBON DIOXIDE LEVEL 28 MMOL/L (20-31); CHLORIDE LEVEL 107 MMOL/L (98-107); CREATININE FOR GFR 0.78 MG/DL (0.55-1.30); GLOMERULAR FILTRATION RATE > 60.0 (>32); GLUCOSE, FASTING 84 MG/DL (74-106); POTASSIUM SERUM 3.5 MMOL/L (3.5-5.1); SODIUM LEVEL 147 MMOL/L (136-145)
[2024-07-18] MEDS: POTASSIUM CHLORIDE 10MEQ SR TABLET PO SCH (09:03)
[2024-07-19 03:19] VITALS: BP 117/58; TEMP 97.7; O2SAT 92
[2024-07-19 07:02] LABS: BASO # 0.1 10^3/uL (0.0-0.2); BASO % 0.6 % (0.0-1.0); EOS # 0.1 10^3/uL (0.0-0.5); EOS % 0.7 % (0.0-3.0); HEMATOCRIT 30.1 % (36.0-47.0); HEMOGLOBIN 9.3 g/dl (12.0-15.5); LYMPH # 2.6 10^3/uL (1.5-5.0); LYMPH % 15.9 % (24.0-44.0); MEAN CORPUSCULAR HEMOGLOBIN 27.3 pg (27.0-33.0); MEAN CORPUSCULAR HGB CONC 30.9 g/dl (32.0-36.5); MEAN CORPUSCULAR VOLUME 88.3 fl (80.0-96.0); MONO # 1.5 10^3/uL (0.0-0.8); MONO % 9.2 % (2.0-8.0); NEUTROPHILS # 11.3 10^3/uL (1.5-8.5); NEUTROPHILS % 69.7 % (36.0-66.0); PLATELET COUNT, AUTOMATED 521 10^3/uL (150-450); RED BLOOD COUNT 3.41 10^6/uL (4.00-5.40); WHITE BLOOD COUNT 16.2 10^3/uL (4.0-10.0)
[2024-07-19 07:23] LABS: BLOOD UREA NITROGEN 12 MG/DL (9-23); CALCIUM LEVEL 8.3 MG/DL (8.3-10.6); CARBON DIOXIDE LEVEL 28 MMOL/L (20-31); CHLORIDE LEVEL 110 MMOL/L (98-107); CREATININE FOR GFR 0.85 MG/DL (0.55-1.30); GLOMERULAR FILTRATION RATE > 60.0 (>32); GLUCOSE, FASTING 97 MG/DL (74-106); POTASSIUM SERUM 3.5 MMOL/L (3.5-5.1); SODIUM LEVEL 146 MMOL/L (136-145)
[2024-07-19 07:33] VITALS: BP 149/66; TEMP 98; O2SAT 92
[2024-07-19] MEDS: FAMOTIDINE 20 MG TAB PO SCH (09:57)
[2024-07-19 12:12] VITALS: BP 105/57; TEMP 97.5; O2SAT 95
[2024-07-19] MEDS: cefTRIAXone SOD 2 GM in DEXTROSE 5% (D5W) ADV/MINI-BAG 50 ML IV SCH (12:45)
[2024-07-19] MEDS: metroNIDAZOLE 500 MG in IV 1 EA IV SCH (13:57)
[2024-07-19 19:21] VITALS: BP 136/63; TEMP 97.1; O2SAT 93
[2024-07-20 03:16] VITALS: BP 140/72; TEMP 97; O2SAT 95
[2024-07-20 07:39] VITALS: BP 156/74; TEMP 99; O2SAT 94
[2024-07-20 09:19] LABS: BLOOD UREA NITROGEN 11 MG/DL (9-23); CALCIUM LEVEL 8.3 MG/DL (8.3-10.6); CARBON DIOXIDE LEVEL 27 MMOL/L (20-31); CHLORIDE LEVEL 109 MMOL/L (98-107); CREATININE FOR GFR 0.72 MG/DL (0.55-1.30); GLOMERULAR FILTRATION RATE > 60.0 (>32); GLUCOSE, FASTING 96 MG/DL (74-106); POTASSIUM SERUM 4.2 MMOL/L (3.5-5.1); SODIUM LEVEL 144 MMOL/L (136-145)
[2024-07-20 09:22] LABS: HEMATOCRIT 34.2 % (36.0-47.0); HEMOGLOBIN 10.4 g/dl (12.0-15.5); MEAN CORPUSCULAR HEMOGLOBIN 27.2 pg (27.0-33.0); MEAN CORPUSCULAR HGB CONC 30.4 g/dl (32.0-36.5); MEAN CORPUSCULAR VOLUME 89.3 fl (80.0-96.0); PLATELET COUNT, AUTOMATED 580 10^3/uL (150-450); RED BLOOD COUNT 3.83 10^6/uL (4.00-5.40); WHITE BLOOD COUNT 17.2 10^3/uL (4.0-10.0)
[2024-07-20 09:41] LABS: ANISOCYTOSIS 1+; ATYPICAL LYMPH 2 % (0-5); LYMPHOCYTES 18 % (16-44); MONOCYTES 8 % (0-5); NEUTROPHILS 71 % (28-66); PLATELET ESTIMATE INCREASED (NORMAL); POLYCHROMASIA 1+
[2024-07-20 09:42] LABS: POIKILOCYTOSIS 1+
[2024-07-20 15:54] VITALS: BP 156/74; TEMP 97.4; O2SAT 94
[2024-07-20 19:28] VITALS: BP 158/72; TEMP 98; O2SAT 94
[2024-07-21] VITALS (7 sets, daily range): BP systolic 156–186; BP diastolic 74–86; TEMP 97.2–97.8; O2SAT 90–94
[2024-07-21 06:20] LABS: BASO # 0.2 10^3/uL (0.0-0.2); BASO % 0.9 % (0.0-1.0); EOS # 0.1 10^3/uL (0.0-0.5); EOS % 0.7 % (0.0-3.0); HEMATOCRIT 32.1 % (36.0-47.0); HEMOGLOBIN 9.8 g/dl (12.0-15.5); LYMPH # 4.3 10^3/uL (1.5-5.0); LYMPH % 24.2 % (24.0-44.0); MEAN CORPUSCULAR HEMOGLOBIN 27.1 pg (27.0-33.0); MEAN CORPUSCULAR HGB CONC 30.5 g/dl (32.0-36.5); MEAN CORPUSCULAR VOLUME 88.9 fl (80.0-96.0); MONO # 1.3 10^3/uL (0.0-0.8); MONO % 7.4 % (2.0-8.0); NEUTROPHILS % 61.4 % (36.0-66.0); PLATELET COUNT, AUTOMATED 570 10^3/uL (150-450); RED BLOOD COUNT 3.61 10^6/uL (4.00-5.40); WHITE BLOOD COUNT 17.9 10^3/uL (4.0-10.0)
[2024-07-21 06:47] LABS: BLOOD UREA NITROGEN 9 MG/DL (9-23); CALCIUM LEVEL 8.4 MG/DL (8.3-10.6); CARBON DIOXIDE LEVEL 28 MMOL/L (20-31); CHLORIDE LEVEL 109 MMOL/L (98-107); CREATININE FOR GFR 0.62 MG/DL (0.55-1.30); GLOMERULAR FILTRATION RATE > 60.0 (>32); GLUCOSE, FASTING 77 MG/DL (74-106); POTASSIUM SERUM 4.1 MMOL/L (3.5-5.1); SODIUM LEVEL 145 MMOL/L (136-145)
[2024-07-21] MEDS: amLODIPine 5 MG TAB PO SCH (08:00)
[2024-07-22 04:16] VITALS: BP 160/72; TEMP 97.2; O2SAT 95
[2024-07-22 06:25] LABS: BASO # 0.1 10^3/uL (0.0-0.2); BASO % 0.8 % (0.0-1.0); EOS # 0.1 10^3/uL (0.0-0.5); HEMATOCRIT 32.2 % (36.0-47.0); HEMOGLOBIN 9.9 g/dl (12.0-15.5); LYMPH # 3.9 10^3/uL (1.5-5.0); LYMPH % 27.2 % (24.0-44.0); MEAN CORPUSCULAR HEMOGLOBIN 27.2 pg (27.0-33.0); MEAN CORPUSCULAR HGB CONC 30.7 g/dl (32.0-36.5); MEAN CORPUSCULAR VOLUME 88.5 fl (80.0-96.0); MONO # 1.3 10^3/uL (0.0-0.8); MONO % 9.2 % (2.0-8.0); NEUTROPHILS # 8.2 10^3/uL (1.5-8.5); NEUTROPHILS % 56.4 % (36.0-66.0); PLATELET COUNT, AUTOMATED 569 10^3/uL (150-450); RED BLOOD COUNT 3.64 10^6/uL (4.00-5.40); WHITE BLOOD COUNT 14.5 10^3/uL (4.0-10.0)
[2024-07-22 06:50] LABS: BLOOD UREA NITROGEN 9 MG/DL (9-23); CALCIUM LEVEL 8.5 MG/DL (8.3-10.6); CARBON DIOXIDE LEVEL 28 MMOL/L (20-31); CHLORIDE LEVEL 110 MMOL/L (98-107); CREATININE FOR GFR 0.79 MG/DL (0.55-1.30); GLOMERULAR FILTRATION RATE > 60.0 (>32); GLUCOSE, FASTING 89 MG/DL (74-106); POTASSIUM SERUM 4.2 MMOL/L (3.5-5.1); SODIUM LEVEL 144 MMOL/L (136-145)
[2024-07-22 07:43] VITALS: BP 162/70; TEMP 97.5; O2SAT 95
[2024-07-22 16:18] VITALS: BP 155/65; TEMP 97.8; O2SAT 93
[2024-07-22 17:25] VITALS: BP 110/52; TEMP 97.9; O2SAT 95
[2024-07-22 19:23] VITALS: BP 132/73; TEMP 97.2; O2SAT 93
[2024-07-23 03:31] VITALS: BP 156/70; TEMP 97; O2SAT 93
[2024-07-23 07:09] LABS: BASO # 0.1 10^3/uL (0.0-0.2); BASO % 0.8 % (0.0-1.0); EOS # 0.2 10^3/uL (0.0-0.5); EOS % 1.3 % (0.0-3.0); HEMATOCRIT 33.5 % (36.0-47.0); HEMOGLOBIN 10.5 g/dl (12.0-15.5); LYMPH % 25.3 % (24.0-44.0); MEAN CORPUSCULAR HEMOGLOBIN 27.3 pg (27.0-33.0); MEAN CORPUSCULAR HGB CONC 31.3 g/dl (32.0-36.5); MEAN CORPUSCULAR VOLUME 87.2 fl (80.0-96.0); MONO # 1.5 10^3/uL (0.0-0.8); MONO % 9.4 % (2.0-8.0); NEUTROPHILS # 9.2 10^3/uL (1.5-8.5); PLATELET COUNT, AUTOMATED 565 10^3/uL (150-450); RED BLOOD COUNT 3.84 10^6/uL (4.00-5.40); WHITE BLOOD COUNT 15.9 10^3/uL (4.0-10.0)
[2024-07-23 07:39] LABS: BLOOD UREA NITROGEN 8 MG/DL (9-23); CARBON DIOXIDE LEVEL 29 MMOL/L (20-31); CHLORIDE LEVEL 106 MMOL/L (98-107); CREATININE FOR GFR 0.63 MG/DL (0.55-1.30); GLOMERULAR FILTRATION RATE > 60.0 (>32); GLUCOSE, FASTING 85 MG/DL (74-106); POTASSIUM SERUM 4.5 MMOL/L (3.5-5.1); SODIUM LEVEL 143 MMOL/L (136-145)
[2024-07-23 08:00] VITALS: BP 119/73; TEMP 97.3; O2SAT 96
[2024-07-23 15:58] VITALS: BP 131/83; TEMP 97.1; O2SAT 91
[2024-07-23 19:25] VITALS: BP 137/76; TEMP 98.1; O2SAT 92
[2024-07-24] VITALS (7 sets, daily range): BP systolic 100–178; BP diastolic 52–76; TEMP 97.7–98.2; O2SAT 90–94
[2024-07-24 05:38] LABS: HEMATOCRIT 30.3 % (36.0-47.0); HEMOGLOBIN 9.4 g/dl (12.0-15.5); MEAN CORPUSCULAR HEMOGLOBIN 27.6 pg (27.0-33.0); MEAN CORPUSCULAR VOLUME 89.1 fl (80.0-96.0); PLATELET COUNT, AUTOMATED 492 10^3/uL (150-450); WHITE BLOOD COUNT 17.1 10^3/uL (4.0-10.0)
[2024-07-24 06:14] LABS: ALBUMIN 1.5 G/DL (3.2-5.2); ALKALINE PHOSPHATASE 79 U/L (35-104); ALT/SGPT 29 U/L (7.0-40); AST/SGOT 57 U/L (<34); BILIRUBIN,TOTAL 0.2 MG/DL (0.3-1.2); BLOOD UREA NITROGEN 7 MG/DL (9-23); CALCIUM LEVEL 8.7 MG/DL (8.3-10.6); CARBON DIOXIDE LEVEL 29 MMOL/L (20-31); CHLORIDE LEVEL 108 MMOL/L (98-107); CREATININE FOR GFR 0.78 MG/DL (0.55-1.30); GLOMERULAR FILTRATION RATE > 60.0 (>32); GLUCOSE, FASTING 84 MG/DL (74-106); SODIUM LEVEL 143 MMOL/L (136-145); TOTAL PROTEIN 5.4 G/DL (5.7-8.2)
[2024-07-24] MEDS ORDERED: ISOVUE-370 76% 100ML VIAL As Ordered ONE (07:23)
[2024-07-25 03:39] VITALS: BP 137/67; TEMP 97.9; O2SAT 90
[2024-07-25 06:24] LABS: HEMATOCRIT 32.5 % (36.0-47.0); HEMOGLOBIN 9.7 g/dl (12.0-15.5); MEAN CORPUSCULAR HGB CONC 29.8 g/dl (32.0-36.5); MEAN CORPUSCULAR VOLUME 90.5 fl (80.0-96.0); PLATELET COUNT, AUTOMATED 506 10^3/uL (150-450); RED BLOOD COUNT 3.59 10^6/uL (4.00-5.40); WHITE BLOOD COUNT 13.7 10^3/uL (4.0-10.0)
[2024-07-25 06:38] LABS: ALBUMIN 1.7 G/DL (3.2-5.2); ALKALINE PHOSPHATASE 78 U/L (35-104); ALT/SGPT 31 U/L (7.0-40); AST/SGOT 44 U/L (<34); BILIRUBIN,TOTAL < 0.2 MG/DL (0.3-1.2); BLOOD UREA NITROGEN 6 MG/DL (9-23); CALCIUM LEVEL 8.7 MG/DL (8.3-10.6); CARBON DIOXIDE LEVEL 29 MMOL/L (20-31); CHLORIDE LEVEL 108 MMOL/L (98-107); CREATININE FOR GFR 0.76 MG/DL (0.55-1.30); GLOMERULAR FILTRATION RATE > 60.0 (>32); GLUCOSE, FASTING 89 MG/DL (74-106); SODIUM LEVEL 143 MMOL/L (136-145); TOTAL PROTEIN 5.4 G/DL (5.7-8.2)
[2024-07-25 08:00] VITALS: BP 146/70; TEMP 97.7; O2SAT 91
[2024-07-25] MEDS: metroNIDAZOLE (FLAGYL) 500MG TABLET PO SCH (14:04)
[2024-07-25 14:30] VITALS: BP 139/69; TEMP 97.7; O2SAT 93
[2024-07-25 17:05] VITALS: BP 152/81; TEMP 97.5; O2SAT 96
[2024-07-25 20:46] VITALS: BP 114/64; TEMP 97.7; O2SAT 94
[2024-07-25] MEDS: CEFDINIR 300 MG CAP (OMNICEF) PO SCH (21:49)
[2024-07-26 04:00] VITALS: BP 138/75; TEMP 97.7; O2SAT 93
[2024-07-26 04:53] LABS: HEMATOCRIT 35.6 % (36.0-47.0); HEMOGLOBIN 10.4 g/dl (12.0-15.5); MEAN CORPUSCULAR HGB CONC 29.2 g/dl (32.0-36.5); MEAN CORPUSCULAR VOLUME 92.5 fl (80.0-96.0); PLATELET COUNT, AUTOMATED 465 10^3/uL (150-450); RED BLOOD COUNT 3.85 10^6/uL (4.00-5.40); WHITE BLOOD COUNT 12.8 10^3/uL (4.0-10.0)
[2024-07-26 05:10] LABS: ALBUMIN 1.9 G/DL (3.2-5.2); ALKALINE PHOSPHATASE 80 U/L (35-104); ALT/SGPT 27 U/L (7.0-40); AST/SGOT 31 U/L (<34); BILIRUBIN,TOTAL 0.2 MG/DL (0.3-1.2); BLOOD UREA NITROGEN 6 MG/DL (9-23); CALCIUM LEVEL 8.4 MG/DL (8.3-10.6); CARBON DIOXIDE LEVEL 26 MMOL/L (20-31); CHLORIDE LEVEL 111 MMOL/L (98-107); CREATININE FOR GFR 0.67 MG/DL (0.55-1.30); GLOMERULAR FILTRATION RATE > 60.0 (>32); GLUCOSE, FASTING 88 MG/DL (74-106); POTASSIUM SERUM 4.1 MMOL/L (3.5-5.1); SODIUM LEVEL 143 MMOL/L (136-145); TOTAL PROTEIN 5.8 G/DL (5.7-8.2)
[2024-07-26] MEDS ORDERED: METR-265 PO (08:12)
[2024-07-26] MEDS ORDERED: FAMO20TA PO (08:12)
[2024-07-26] MEDS ORDERED: RISATAB3 PO (08:12)
[2024-07-26] MEDS ORDERED: CEFD300CAP PO (08:12)
[2024-07-26] MEDS ORDERED: AMLO1TAB24 PO (08:12)
[2024-07-26 08:45] VITALS: BP 115/73
== END 2024-07-26 11:19 | disposition home health service (06) | DRG 871 ==
LOC: M ED 16:53 → EDBD 16:53 → M ED INP 22:25 → M PCU 07-16 00:01 → M MSPAV 07-24 17:45
PROVIDERS: ADMIT Student in an Organized Health Care Education/Training Program; ATTEND Internal Medicine
DX: A41.9 Sepsis, unspecified organism (principal); K65.1 Peritoneal abscess; E43 Unspecified severe protein-calorie malnutrition; A04.72 Enterocolitis due to Clostridium difficile, not specified as recurrent; Z68.1 Body mass index [BMI] 19.9 or less, adult; Z66 Do not resuscitate; I10 Essential (primary) hypertension; E78.5 Hyperlipidemia, unspecified; J45.909 Unspecified asthma, uncomplicated; D72.829 Elevated white blood cell count, unspecified; E83.42 Hypomagnesemia; B96.20 Unspecified Escherichia coli [E. coli] as the cause of diseases classified elsewhere; D69.6 Thrombocytopenia, unspecified; E87.6 Hypokalemia; Z93.3 Colostomy status; Z79.82 Long term (current) use of aspirin; Z79.899 Other long term (current) drug therapy; Z85.828 Personal history of other malignant neoplasm of skin

== ENCOUNTER 2024-08-03 13:28 | Inpatient (IN) | payer MEDICARE, MEDICAID ==
[~2024-08-03] VITALS: Ht 170.2 cm; Wt 51.4 kg
[~2024-08-03 13:28] MED LIST changes: +AMLO1TAB24 PO; +CEFD300CAP PO; +FAMO20TA PO; +FLOR250C PO; +MAG-400T7 PO; +METR-265 PO; +RISATAB3 PO; +SPIR1CAP INH
[2024-08-03] MEDS: ONDANSETRON 4MG 2ML VIAL IV ONE (13:50)
[2024-08-03] MEDS: NS 500 ML IV ONE (13:50)
[2024-08-03 14:17] LABS: BASO # 0.1 10^3/uL (0.0-0.2); BASO % 0.5 % (0.0-1.0); EOS % 0.1 % (0.0-3.0); HEMATOCRIT 37.9 % (36.0-47.0); HEMOGLOBIN 11.8 g/dl (12.0-15.5); LYMPH # 1.8 10^3/uL (1.5-5.0); LYMPH % 9.5 % (24.0-44.0); MEAN CORPUSCULAR HEMOGLOBIN 28.2 pg (27.0-33.0); MEAN CORPUSCULAR HGB CONC 31.1 g/dl (32.0-36.5); MEAN CORPUSCULAR VOLUME 90.5 fl (80.0-96.0); MONO # 1.8 10^3/uL (0.0-0.8); MONO % 9.6 % (2.0-8.0); NEUTROPHILS % 79.6 % (36.0-66.0); PLATELET COUNT, AUTOMATED 585 10^3/uL (150-450); RED BLOOD COUNT 4.19 10^6/uL (4.00-5.40); WHITE BLOOD COUNT 18.8 10^3/uL (4.0-10.0)
[2024-08-03 14:39] LABS: BLOOD UREA NITROGEN 15 MG/DL (9-23); CALCIUM LEVEL 9.3 MG/DL (8.3-10.6); CARBON DIOXIDE LEVEL 26 MMOL/L (20-31); CHLORIDE LEVEL 105 MMOL/L (98-107); CREATININE FOR GFR 0.61 MG/DL (0.55-1.30); GLOMERULAR FILTRATION RATE > 60.0 (>32); GLUCOSE, FASTING 113 MG/DL (74-106); MAGNESIUM LEVEL 1.4 MG/DL (1.8-2.4); POTASSIUM SERUM 3.9 MMOL/L (3.5-5.1); SODIUM LEVEL 142 MMOL/L (136-145)
[2024-08-03 14:41] LABS: FREE T4 1.38 NG/DL (0.89-1.76)
[2024-08-03 14:42] LABS: THYROID STIMULATING HORMONE 5.036 uIU/ML (0.55-4.78)
[2024-08-03] MEDS ORDERED: ISOVUE-370 76% 100ML VIAL As Ordered ONE (14:54)
[2024-08-03] MEDS: MAG SULF 1GM/100ML (MAG RUN) 1 GM in IV 1 EA IV ONE ×2 (15:27→16:40)
[2024-08-03] MEDS: PIPERACILLIN/TAZOBACTAM SOD 3.375 GM in DEXTROSE 5% (D5W) ADV/MINI-BAG 50 ML IV ONE (17:20)
[2024-08-03] MEDS: ACETAMINOPHEN 325 MG TAB PO ONE (18:05)
[2024-08-03] MEDS ORDERED: MOM 30ML SUSPENSION UDC PO PRN (18:20)
[2024-08-03] MEDS ORDERED: ACETAMINOPHEN 325 MG TAB PO PRN (18:20)
[2024-08-03 18:52] LABS: C REACTIVE PROTEIN QUANTITATIV 6.69 MG/DL (<1.0)
[2024-08-03 19:49] VITALS: BP 143/74; TEMP 97.5; O2SAT 92
[2024-08-03] MEDS ORDERED: METR-265 PO (19:59)
[2024-08-03] MEDS ORDERED: AMLO1TAB24 PO (19:59)
[2024-08-03] MEDS ORDERED: RISATAB3 PO (19:59)
[2024-08-03] MEDS ORDERED: CEFD1CAP9 PO (19:59)
[2024-08-03] MEDS ORDERED: FAMO1TAB11 PO (19:59)
[2024-08-03] MEDS ORDERED: VENTAER INH (19:59)
[2024-08-03] MEDS ORDERED: HOME MED LIST COMPLETE! XX SCH (20:05)
[2024-08-03] MEDS: MAG SULF 1GM/100ML (MAG RUN) 1 GM in IV 1 EA IV SCH (20:46)
[2024-08-03] MEDS: HEPARIN SOD (PORCINE) 5000UNITS/ML 1ML VIAL/SYRINGE SC SCH (20:46)
[2024-08-03] MEDS: amLODIPine 5 MG TAB PO SCH (20:46)
[2024-08-04] MEDS: PIPERACILLIN/TAZOBACTAM SOD 4.5 GM in DEXTROSE 5% (D5W) ADV/MINI-BAG 50 ML IV SCH (01:36)
[2024-08-04] MEDS: ACETAMINOPHEN 325 MG TAB PO PRN (02:53)
[2024-08-04 03:20] VITALS: BP 140/66; TEMP 97.5; O2SAT 93
[2024-08-04 05:28] LABS: BASO # 0.1 10^3/uL (0.0-0.2); BASO % 0.8 % (0.0-1.0); EOS # 0.1 10^3/uL (0.0-0.5); EOS % 0.6 % (0.0-3.0); HEMATOCRIT 33.2 % (36.0-47.0); HEMOGLOBIN 10.5 g/dl (12.0-15.5); LYMPH # 1.4 10^3/uL (1.5-5.0); LYMPH % 11.4 % (24.0-44.0); MEAN CORPUSCULAR HEMOGLOBIN 28.5 pg (27.0-33.0); MEAN CORPUSCULAR HGB CONC 31.6 g/dl (32.0-36.5); MONO # 1.5 10^3/uL (0.0-0.8); MONO % 11.7 % (2.0-8.0); NEUTROPHILS # 9.4 10^3/uL (1.5-8.5); NEUTROPHILS % 74.9 % (36.0-66.0); RED BLOOD COUNT 3.69 10^6/uL (4.00-5.40); WHITE BLOOD COUNT 12.5 10^3/uL (4.0-10.0)
[2024-08-04 05:29] LABS: PLATELET COUNT, AUTOMATED 434 10^3/uL (150-450)
[2024-08-04 05:34] LABS: C REACTIVE PROTEIN QUANTITATIV 6.49 MG/DL (<1.0)
[2024-08-04 05:38] LABS: BLOOD UREA NITROGEN 10 MG/DL (9-23); CALCIUM LEVEL 7.9 MG/DL (8.3-10.6); CARBON DIOXIDE LEVEL 27 MMOL/L (20-31); CHLORIDE LEVEL 105 MMOL/L (98-107); CREATININE FOR GFR 0.55 MG/DL (0.55-1.30); GLOMERULAR FILTRATION RATE > 60.0 (>32); GLUCOSE, FASTING 103 MG/DL (74-106); MAGNESIUM LEVEL 2.7 MG/DL (1.8-2.4); PHOSPHORUS LEVEL 3.4 MG/DL (2.4-5.1); POTASSIUM SERUM 3.5 MMOL/L (3.5-5.1); SODIUM LEVEL 141 MMOL/L (136-145)
[2024-08-04] MEDS: VANCOMYCIN 125MG CAPSULE PO SCH (08:18)
[2024-08-04] MEDS: LACTOBACILLUS ACIDOPHILUS CAP (BACID) PO SCH (08:18)
[2024-08-04] MEDS: NYSTATIN 100,000 UNITS/GM TOPICAL PWD 15GM TOP SCH (11:41)
[2024-08-04 12:00] VITALS: BP 126/64; TEMP 97.7; O2SAT 94
[2024-08-04] MEDS: ANALGESIC BALM CRM 3OZ TOP SCH (16:38)
[2024-08-04 20:00] VITALS: BP 130/64; TEMP 97.7; O2SAT 95
[2024-08-05 04:00] VITALS: BP 138/68; TEMP 97.5; O2SAT 94
[2024-08-05 06:38] LABS: BASO # 0.1 10^3/uL (0.0-0.2); BASO % 0.7 % (0.0-1.0); EOS # 0.2 10^3/uL (0.0-0.5); EOS % 1.6 % (0.0-3.0); HEMATOCRIT 32.2 % (36.0-47.0); HEMOGLOBIN 9.9 g/dl (12.0-15.5); LYMPH # 1.9 10^3/uL (1.5-5.0); LYMPH % 12.8 % (24.0-44.0); MEAN CORPUSCULAR HGB CONC 30.7 g/dl (32.0-36.5); MONO # 1.5 10^3/uL (0.0-0.8); MONO % 9.7 % (2.0-8.0); NEUTROPHILS # 11.3 10^3/uL (1.5-8.5); NEUTROPHILS % 74.5 % (36.0-66.0); PLATELET COUNT, AUTOMATED 453 10^3/uL (150-450); RED BLOOD COUNT 3.54 10^6/uL (4.00-5.40); WHITE BLOOD COUNT 15.1 10^3/uL (4.0-10.0)
[2024-08-05 06:49] LABS: BLOOD UREA NITROGEN 13 MG/DL (9-23); CARBON DIOXIDE LEVEL 27 MMOL/L (20-31); CHLORIDE LEVEL 107 MMOL/L (98-107); CREATININE FOR GFR 0.66 MG/DL (0.55-1.30); GLOMERULAR FILTRATION RATE > 60.0 (>32); GLUCOSE, FASTING 86 MG/DL (74-106); MAGNESIUM LEVEL 1.7 MG/DL (1.8-2.4); POTASSIUM SERUM 3.6 MMOL/L (3.5-5.1); SODIUM LEVEL 141 MMOL/L (136-145)
[2024-08-05] MEDS: MAG SULF 1GM/100ML (MAG RUN) 1 GM in IV 1 EA IV SCH (08:37)
[2024-08-05] MEDS: ONDANSETRON 4MG 2ML VIAL IV PRN (09:14)
[2024-08-05] MEDS: NYSTATIN 500,000U/5ML SUSP UDC SS SCH (09:42)
[2024-08-05 12:00] VITALS: BP 131/68; TEMP 97.5; O2SAT 95
[2024-08-05 12:15] LABS: ANTI-STREPTOLYSIN O QUANT 74.4 IU/ML (<195)
[2024-08-05] MEDS ORDERED: PROMETHAZINE 25MG/ML 1ML VIAL IV PRN (13:55)
[2024-08-05] MEDS: METOCLOPRAMIDE INJ 10MG/2ML VIAL IV PRN (14:09)
[2024-08-05 20:00] VITALS: BP 133/67; TEMP 97.5; O2SAT 95
[2024-08-06 04:00] VITALS: BP 142/69; TEMP 97.8; O2SAT 96
[2024-08-06 06:59] LABS: BASO # 0.1 10^3/uL (0.0-0.2); BASO % 0.9 % (0.0-1.0); EOS # 0.2 10^3/uL (0.0-0.5); EOS % 1.6 % (0.0-3.0); HEMATOCRIT 32.3 % (36.0-47.0); HEMOGLOBIN 9.8 g/dl (12.0-15.5); LYMPH # 2.7 10^3/uL (1.5-5.0); LYMPH % 21.2 % (24.0-44.0); MEAN CORPUSCULAR HEMOGLOBIN 27.6 pg (27.0-33.0); MEAN CORPUSCULAR HGB CONC 30.3 g/dl (32.0-36.5); MONO # 1.4 10^3/uL (0.0-0.8); MONO % 10.6 % (2.0-8.0); NEUTROPHILS # 8.4 10^3/uL (1.5-8.5); NEUTROPHILS % 64.8 % (36.0-66.0); PLATELET COUNT, AUTOMATED 452 10^3/uL (150-450); RED BLOOD COUNT 3.55 10^6/uL (4.00-5.40); WHITE BLOOD COUNT 12.9 10^3/uL (4.0-10.0)
[2024-08-06 07:26] LABS: BLOOD UREA NITROGEN 12 MG/DL (9-23); CALCIUM LEVEL 8.1 MG/DL (8.3-10.6); CARBON DIOXIDE LEVEL 26 MMOL/L (20-31); CHLORIDE LEVEL 106 MMOL/L (98-107); GLOMERULAR FILTRATION RATE > 60.0 (>32); GLUCOSE, FASTING 77 MG/DL (74-106); MAGNESIUM LEVEL 1.7 MG/DL (1.8-2.4); POTASSIUM SERUM 4.2 MMOL/L (3.5-5.1); SODIUM LEVEL 142 MMOL/L (136-145)
[2024-08-06] MEDS: MAGNESIUM OXIDE 400MG TAB (MAG-OX) PO SCH (08:27)
[2024-08-06 12:00] VITALS: BP 143/69; TEMP 97.7; O2SAT 93
[2024-08-06 21:26] VITALS: BP 141/69; TEMP 97.7; O2SAT 91
[2024-08-07 04:20] VITALS: BP 137/69; TEMP 97.9; O2SAT 93
[2024-08-07 06:13] LABS: BASO # 0.1 10^3/uL (0.0-0.2); BASO % 1.1 % (0.0-1.0); EOS # 0.2 10^3/uL (0.0-0.5); EOS % 2.1 % (0.0-3.0); HEMATOCRIT 35.6 % (36.0-47.0); HEMOGLOBIN 10.7 g/dl (12.0-15.5); LYMPH # 2.7 10^3/uL (1.5-5.0); LYMPH % 24.5 % (24.0-44.0); MEAN CORPUSCULAR HEMOGLOBIN 27.1 pg (27.0-33.0); MEAN CORPUSCULAR HGB CONC 30.1 g/dl (32.0-36.5); MEAN CORPUSCULAR VOLUME 90.1 fl (80.0-96.0); MONO # 1.1 10^3/uL (0.0-0.8); MONO % 10.1 % (2.0-8.0); NEUTROPHILS # 6.8 10^3/uL (1.5-8.5); NEUTROPHILS % 60.8 % (36.0-66.0); PLATELET COUNT, AUTOMATED 490 10^3/uL (150-450); RED BLOOD COUNT 3.95 10^6/uL (4.00-5.40); WHITE BLOOD COUNT 11.2 10^3/uL (4.0-10.0)
[2024-08-07 06:32] LABS: BLOOD UREA NITROGEN 9 MG/DL (9-23); CALCIUM LEVEL 8.4 MG/DL (8.3-10.6); CARBON DIOXIDE LEVEL 29 MMOL/L (20-31); CHLORIDE LEVEL 108 MMOL/L (98-107); CREATININE FOR GFR 0.63 MG/DL (0.55-1.30); GLOMERULAR FILTRATION RATE > 60.0 (>32); GLUCOSE, FASTING 92 MG/DL (74-106); MAGNESIUM LEVEL 1.6 MG/DL (1.8-2.4); POTASSIUM SERUM 3.8 MMOL/L (3.5-5.1); SODIUM LEVEL 144 MMOL/L (136-145)
[2024-08-07 08:00] VITALS: BP 147/67; TEMP 97.3; O2SAT 92
[2024-08-07] MEDS: MAG SULF 1GM/100ML (MAG RUN) 1 GM in IV 1 EA IV ONE (11:54)
[2024-08-07 12:14] VITALS: BP 136/72; TEMP 97.7; O2SAT 95
[2024-08-07 20:03] VITALS: BP 141/72; TEMP 97.9; O2SAT 93
[2024-08-08 04:34] VITALS: BP 140/74; TEMP 97.9; O2SAT 94
[2024-08-08 06:17] LABS: BASO # 0.1 10^3/uL (0.0-0.2); BASO % 0.9 % (0.0-1.0); EOS # 0.4 10^3/uL (0.0-0.5); EOS % 3.1 % (0.0-3.0); HEMATOCRIT 35.3 % (36.0-47.0); HEMOGLOBIN 10.9 g/dl (12.0-15.5); LYMPH # 2.4 10^3/uL (1.5-5.0); LYMPH % 20.8 % (24.0-44.0); MEAN CORPUSCULAR HEMOGLOBIN 27.9 pg (27.0-33.0); MEAN CORPUSCULAR HGB CONC 30.9 g/dl (32.0-36.5); MEAN CORPUSCULAR VOLUME 90.5 fl (80.0-96.0); MONO # 1.3 10^3/uL (0.0-0.8); MONO % 11.2 % (2.0-8.0); NEUTROPHILS # 7.2 10^3/uL (1.5-8.5); NEUTROPHILS % 62.9 % (36.0-66.0); PLATELET COUNT, AUTOMATED 483 10^3/uL (150-450); WHITE BLOOD COUNT 11.4 10^3/uL (4.0-10.0)
[2024-08-08 06:24] LABS: BLOOD UREA NITROGEN 9 MG/DL (9-23); CALCIUM LEVEL 8.8 MG/DL (8.3-10.6); CARBON DIOXIDE LEVEL 30 MMOL/L (20-31); CHLORIDE LEVEL 105 MMOL/L (98-107); CREATININE FOR GFR 0.59 MG/DL (0.55-1.30); GLOMERULAR FILTRATION RATE > 60.0 (>32); GLUCOSE, FASTING 94 MG/DL (74-106); MAGNESIUM LEVEL 1.9 MG/DL (1.8-2.4); POTASSIUM SERUM 3.8 MMOL/L (3.5-5.1); SODIUM LEVEL 143 MMOL/L (136-145)
[2024-08-08 11:56] VITALS: BP 131/67; TEMP 97.7; O2SAT 90
[2024-08-08] MEDS: metroNIDAZOLE (FLAGYL) 500MG TABLET PO SCH (14:33)
[2024-08-08] MEDS: CIPROFLOXACIN 500MG TABLET PO SCH (17:27)
[2024-08-08 19:30] VITALS: BP 129/66; TEMP 97.9; O2SAT 90
[2024-08-09 03:54] VITALS: BP 141/70; TEMP 97.9; O2SAT 90
[2024-08-09 05:46] LABS: BASO # 0.1 10^3/uL (0.0-0.2); BASO % 0.9 % (0.0-1.0); EOS # 0.3 10^3/uL (0.0-0.5); EOS % 2.6 % (0.0-3.0); HEMATOCRIT 33.6 % (36.0-47.0); HEMOGLOBIN 10.5 g/dl (12.0-15.5); LYMPH # 2.9 10^3/uL (1.5-5.0); LYMPH % 22.4 % (24.0-44.0); MEAN CORPUSCULAR HEMOGLOBIN 27.9 pg (27.0-33.0); MEAN CORPUSCULAR HGB CONC 31.3 g/dl (32.0-36.5); MEAN CORPUSCULAR VOLUME 89.1 fl (80.0-96.0); MONO # 1.5 10^3/uL (0.0-0.8); MONO % 11.7 % (2.0-8.0); NEUTROPHILS # 7.8 10^3/uL (1.5-8.5); NEUTROPHILS % 60.5 % (36.0-66.0); PLATELET COUNT, AUTOMATED 505 10^3/uL (150-450); RED BLOOD COUNT 3.77 10^6/uL (4.00-5.40); WHITE BLOOD COUNT 12.8 10^3/uL (4.0-10.0)
[2024-08-09 06:04] LABS: BLOOD UREA NITROGEN 10 MG/DL (9-23); CALCIUM LEVEL 8.9 MG/DL (8.3-10.6); CARBON DIOXIDE LEVEL 27 MMOL/L (20-31); CHLORIDE LEVEL 106 MMOL/L (98-107); CREATININE FOR GFR 0.54 MG/DL (0.55-1.30); GLOMERULAR FILTRATION RATE > 60.0 (>32); GLUCOSE, FASTING 97 MG/DL (74-106); MAGNESIUM LEVEL 1.8 MG/DL (1.8-2.4); POTASSIUM SERUM 3.9 MMOL/L (3.5-5.1); SODIUM LEVEL 141 MMOL/L (136-145)
[2024-08-09 12:00] VITALS: BP 111/71; TEMP 97.5; O2SAT 94
[2024-08-09 13:47] LABS: C REACTIVE PROTEIN QUANTITATIV 3.47 MG/DL (<1.0)
[2024-08-09 13:55] LABS: PROCALCITONIN 0.12 ng/ml
[2024-08-09] MEDS: ONDANSETRON 4MG TAB PO PRN (18:20)
[2024-08-09 18:42] LABS: ERYTHROCYTE SEDIMENTATION RATE 107 mm/hr (0-30)
[2024-08-09 20:00] VITALS: BP 147/93; TEMP 97.9; O2SAT 95
[2024-08-10 04:00] VITALS: BP 141/73; TEMP 97.7; O2SAT 95
[2024-08-10 06:27] LABS: BASO # 0.1 10^3/uL (0.0-0.2); BASO % 1.1 % (0.0-1.0); EOS # 0.3 10^3/uL (0.0-0.5); EOS % 2.1 % (0.0-3.0); HEMATOCRIT 33.7 % (36.0-47.0); HEMOGLOBIN 10.4 g/dl (12.0-15.5); LYMPH # 2.8 10^3/uL (1.5-5.0); LYMPH % 21.6 % (24.0-44.0); MEAN CORPUSCULAR HEMOGLOBIN 27.7 pg (27.0-33.0); MEAN CORPUSCULAR HGB CONC 30.9 g/dl (32.0-36.5); MEAN CORPUSCULAR VOLUME 89.9 fl (80.0-96.0); MONO # 1.7 10^3/uL (0.0-0.8); MONO % 12.8 % (2.0-8.0); NEUTROPHILS # 7.9 10^3/uL (1.5-8.5); NEUTROPHILS % 60.3 % (36.0-66.0); PLATELET COUNT, AUTOMATED 524 10^3/uL (150-450); RED BLOOD COUNT 3.75 10^6/uL (4.00-5.40); WHITE BLOOD COUNT 13.1 10^3/uL (4.0-10.0)
[2024-08-10 06:55] LABS: BLOOD UREA NITROGEN 8 MG/DL (9-23); CARBON DIOXIDE LEVEL 27 MMOL/L (20-31); CHLORIDE LEVEL 107 MMOL/L (98-107); GLOMERULAR FILTRATION RATE > 60.0 (>32); GLUCOSE, FASTING 87 MG/DL (74-106); MAGNESIUM LEVEL 1.8 MG/DL (1.8-2.4); SODIUM LEVEL 141 MMOL/L (136-145)
[2024-08-10] MEDS ORDERED: AMPICILLIN SOD/SULBACTAM SOD 3 GM in SODIUM CHLORIDE 0.9% 100ML ADD 100 ML IV SCH (11:35)
[2024-08-10 12:00] VITALS: BP 130/71; TEMP 97.5; O2SAT 89
[2024-08-10] MEDS: AMPICILLIN SOD/SULBACTAM SOD 3 GM in SODIUM CHLORIDE 0.9% 100ML ADD 100 ML IV SCH (15:26)
[2024-08-10 20:00] VITALS: BP 136/68; TEMP 97.7; O2SAT 96
[2024-08-11] MEDS: KETOROLAC 30 MG/ML 1ML VIAL IV ONE (02:53)
[2024-08-11 04:00] VITALS: BP 134/76; TEMP 97.5; O2SAT 96
[2024-08-11 08:10] LABS: HEMATOCRIT 35.3 % (36.0-47.0); HEMOGLOBIN 10.8 g/dl (12.0-15.5); MEAN CORPUSCULAR HEMOGLOBIN 27.6 pg (27.0-33.0); MEAN CORPUSCULAR HGB CONC 30.6 g/dl (32.0-36.5); MEAN CORPUSCULAR VOLUME 90.1 fl (80.0-96.0); PLATELET COUNT, AUTOMATED 578 10^3/uL (150-450); RED BLOOD COUNT 3.92 10^6/uL (4.00-5.40); WHITE BLOOD COUNT 13.8 10^3/uL (4.0-10.0)
[2024-08-11 08:37] LABS: BLOOD UREA NITROGEN 6 MG/DL (9-23); CALCIUM LEVEL 8.6 MG/DL (8.3-10.6); CARBON DIOXIDE LEVEL 28 MMOL/L (20-31); CHLORIDE LEVEL 102 MMOL/L (98-107); CREATININE FOR GFR 0.63 MG/DL (0.55-1.30); GLOMERULAR FILTRATION RATE > 60.0 (>32); GLUCOSE, FASTING 101 MG/DL (74-106); POTASSIUM SERUM 3.8 MMOL/L (3.5-5.1); SODIUM LEVEL 141 MMOL/L (136-145)
[2024-08-11] MEDS: LevoFLOXacin 750 MG TABLET PO SCH (10:44)
[2024-08-11 12:00] VITALS: BP 147/70; TEMP 97.3; O2SAT 94
[2024-08-11] MEDS: NYSTATIN 100,000 UNITS/GM TOPICAL PWD 15GM TOP SCH (20:49)
[2024-08-12 03:51] VITALS: BP 142/57; TEMP 97.7; O2SAT 93
[2024-08-12 08:29] LABS: HEMATOCRIT 34.3 % (36.0-47.0); HEMOGLOBIN 10.5 g/dl (12.0-15.5); MEAN CORPUSCULAR HEMOGLOBIN 27.9 pg (27.0-33.0); MEAN CORPUSCULAR HGB CONC 30.6 g/dl (32.0-36.5); MEAN CORPUSCULAR VOLUME 91.2 fl (80.0-96.0); PLATELET COUNT, AUTOMATED 563 10^3/uL (150-450); RED BLOOD COUNT 3.76 10^6/uL (4.00-5.40); WHITE BLOOD COUNT 12.1 10^3/uL (4.0-10.0)
[2024-08-12 12:00] VITALS: BP 122/76; TEMP 97.9; O2SAT 96
[2024-08-12] MEDS: MAALOX 30 ML SUSP *UDC PO PRN (18:45)
[2024-08-12 20:34] VITALS: BP 126/73; TEMP 97.7; O2SAT 95
[2024-08-12] MEDS: AUGMENTIN 875 MG TAB PO SCH (20:50)
[2024-08-13 04:29] VITALS: BP 131/71; TEMP 97.3; O2SAT 94
[2024-08-13 09:39] VITALS: BP 141/75
[2024-08-13 12:00] VITALS: BP 125/73; TEMP 97.5; O2SAT 91
[2024-08-13] MEDS ORDERED: MOM30SS2 PO (12:33)
[2024-08-13] MEDS ORDERED: RISATAB3 PO (12:33)
[2024-08-13] MEDS ORDERED: LEVO75TAB PO (12:33)
[2024-08-13] MEDS ORDERED: AMOX875T2 PO (12:33)
[2024-08-13] MEDS ORDERED: VANC1CAP6 PO (12:33)
== END 2024-08-13 14:59 | DRG 371 ==
LOC: M ED 13:28 → EDBD 13:28 → M ED INP 18:20 → M MSPAV 19:49
PROVIDERS: ADMIT Student in an Organized Health Care Education/Training Program; ATTEND Student in an Organized Health Care Education/Training Program
DX: K65.1 Peritoneal abscess (principal); E43 Unspecified severe protein-calorie malnutrition; Z68.1 Body mass index [BMI] 19.9 or less, adult; B37.0 Candidal stomatitis; I10 Essential (primary) hypertension; M25.532 Pain in left wrist; M67.432 Ganglion, left wrist; Z93.3 Colostomy status; K21.9 Gastro-esophageal reflux disease without esophagitis; N32.81 Overactive bladder; Z66 Do not resuscitate; E83.42 Hypomagnesemia; Z79.82 Long term (current) use of aspirin; Z79.2 Long term (current) use of antibiotics; Z79.899 Other long term (current) drug therapy; Z90.49 Acquired absence of other specified parts of digestive tract

== ENCOUNTER 2024-08-13 13:58 | Inpatient (IN) | payer MEDICARE, MEDICAID ==
[~2024-08-13] VITALS: Ht 170.2 cm; Wt 50.1 kg
[~2024-08-13 13:58] MED LIST changes: +CEFD1CAP9 PO; +FAMO1TAB11 PO; +LEVO75TAB PO; +MOM30SS2 PO; +VANC1CAP6 PO; +VENTAER INH
[2024-08-13 15:03] VITALS: BP 154/90; TEMP 96.5; O2SAT 100
[2024-08-13] MEDS ORDERED: FLEET ENEMA PR PRN (15:15)
[2024-08-13] MEDS ORDERED: MOM 30ML SUSPENSION UDC PO PRN ×2 (15:15)
[2024-08-13] MEDS ORDERED: ALBUTEROL 90 MCG/ACT 8GM HFA INHALER INH PRN (15:15)
[2024-08-13] MEDS ORDERED: BISACODYL 10MG SUPP PR PRN (15:15)
[2024-08-13] MEDS ORDERED: MAALOX 30 ML SUSP *UDC PO PRN (15:15)
[2024-08-13] MEDS ORDERED: SIMETHICONE 80MG CHEW TAB PO PRN (15:15)
[2024-08-13] MEDS ORDERED: BISACODYL 5MG TAB PO PRN (15:15)
[2024-08-13 16:00] VITALS: BP 139/70; TEMP 96.5; TEMP 97.6; O2SAT 100
[2024-08-13] MEDS: LACTOBACILLUS ACIDOPHILUS CAP (BACID) PO SCH (16:55)
[2024-08-13] MEDS: MAGNESIUM OXIDE 400MG TAB (MAG-OX) PO SCH (16:55)
[2024-08-13] MEDS ORDERED: LACTOBACILLUS ACIDOPHILUS CAP (BACID) PO SCH (18:00)
[2024-08-13 20:00] VITALS: BP 116/62; TEMP 96.8; O2SAT 92
[2024-08-13] MEDS: AUGMENTIN 875 MG TAB PO SCH (20:24)
[2024-08-13] MEDS: amLODIPine 5 MG TAB PO SCH (20:24)
[2024-08-13] MEDS: HEPARIN SOD (PORCINE) 5000UNITS/ML 1ML VIAL/SYRINGE SC SCH (20:25)
[2024-08-13] MEDS: NYSTATIN 100,000 UNITS/GM TOPICAL PWD 15GM TOP SCH (20:25)
[2024-08-13] MEDS ORDERED: FAMOTIDINE 20 MG TAB PO SCH (21:00)
[2024-08-14 04:00] VITALS: BP 157/66; TEMP 98.2; O2SAT 93
[2024-08-14] MEDS: LevoFLOXacin 750 MG TABLET PO SCH (06:12)
[2024-08-14 07:38] VITALS: BP 131/60
[2024-08-14] MEDS: VANCOMYCIN 125MG CAPSULE PO SCH (07:39)
[2024-08-14] MEDS: ATORVASTATIN 20 MG TAB PO SCH (07:40)
[2024-08-14 08:03] LABS: BASO # 0.1 10^3/uL (0.0-0.2); BASO % 0.8 % (0.0-1.0); EOS # 0.3 10^3/uL (0.0-0.5); EOS % 2.3 % (0.0-3.0); HEMATOCRIT 30.9 % (36.0-47.0); HEMOGLOBIN 9.7 g/dl (12.0-15.5); LYMPH % 14.7 % (24.0-44.0); MEAN CORPUSCULAR HGB CONC 31.4 g/dl (32.0-36.5); MONO # 1.6 10^3/uL (0.0-0.8); MONO % 11.7 % (2.0-8.0); NEUTROPHILS # 9.4 10^3/uL (1.5-8.5); NEUTROPHILS % 68.5 % (36.0-66.0); PLATELET COUNT, AUTOMATED 501 10^3/uL (150-450); RED BLOOD COUNT 3.47 10^6/uL (4.00-5.40); WHITE BLOOD COUNT 13.7 10^3/uL (4.0-10.0)
[2024-08-14] MEDS: ONDANSETRON 4MG ORAL DISINTEGRATING TAB PO PRN (08:45)
[2024-08-14 08:48] LABS: BLOOD UREA NITROGEN 6 MG/DL (9-23); CALCIUM LEVEL 8.7 MG/DL (8.3-10.6); CARBON DIOXIDE LEVEL 25 MMOL/L (20-31); CHLORIDE LEVEL 106 MMOL/L (98-107); CREATININE FOR GFR 0.77 MG/DL (0.55-1.30); GLOMERULAR FILTRATION RATE > 60.0 (>32); GLUCOSE, FASTING 93 MG/DL (74-106); POTASSIUM SERUM 4.1 MMOL/L (3.5-5.1); SODIUM LEVEL 140 MMOL/L (136-145)
[2024-08-14 12:00] VITALS: BP 110/59; TEMP 97.6; O2SAT 99
[2024-08-14] MEDS: METOCLOPRAMIDE 5 MG TAB PO PRN (13:45)
[2024-08-14] MEDS ORDERED: ALTEPLASE 10MG IN NS 60ML SYRINGE INTRAPLEU ONE (14:35)
[2024-08-14] MEDS: METOCLOPRAMIDE 5 MG TAB PO SCH (18:07)
[2024-08-14 19:30] VITALS: BP 112/57; TEMP 99.5; O2SAT 91
[2024-08-15 03:34] VITALS: BP 128/60; TEMP 97.7; O2SAT 96
[2024-08-15] MEDS: ACETAMINOPHEN 325 MG TAB PO PRN (03:50)
[2024-08-15] MEDS: FAMOTIDINE 20 MG TAB PO SCH (07:37)
[2024-08-15] MEDS: INDOMETHACIN 25 MG CAP PO SCH (09:18)
[2024-08-15 12:00] VITALS: BP 112/62; TEMP 97.2; O2SAT 90
[2024-08-15 20:00] VITALS: BP 121/57; TEMP 96.6; O2SAT 92
[2024-08-16 04:38] VITALS: BP 125/59; TEMP 97.9
[2024-08-16 07:57] LABS: BASO # 0.1 10^3/uL (0.0-0.2); BASO % 0.7 % (0.0-1.0); EOS # 0.5 10^3/uL (0.0-0.5); HEMATOCRIT 32.2 % (36.0-47.0); LYMPH # 1.6 10^3/uL (1.5-5.0); LYMPH % 9.8 % (24.0-44.0); MEAN CORPUSCULAR HEMOGLOBIN 28.2 pg (27.0-33.0); MEAN CORPUSCULAR HGB CONC 31.1 g/dl (32.0-36.5); MONO # 1.6 10^3/uL (0.0-0.8); NEUTROPHILS # 12.2 10^3/uL (1.5-8.5); NEUTROPHILS % 74.6 % (36.0-66.0); PLATELET COUNT, AUTOMATED 570 10^3/uL (150-450); RED BLOOD COUNT 3.54 10^6/uL (4.00-5.40); WHITE BLOOD COUNT 16.4 10^3/uL (4.0-10.0)
[2024-08-16] MEDS: MEGESTROL ES SUSP 625MG 5ML ORAL SYRINGE PO SCH (08:12)
[2024-08-16 08:14] LABS: BLOOD UREA NITROGEN 16 MG/DL (9-23); CALCIUM LEVEL 9.2 MG/DL (8.3-10.6); CARBON DIOXIDE LEVEL 27 MMOL/L (20-31); CHLORIDE LEVEL 106 MMOL/L (98-107); CREATININE FOR GFR 0.79 MG/DL (0.55-1.30); GLOMERULAR FILTRATION RATE > 60.0 (>32); GLUCOSE, FASTING 82 MG/DL (74-106); POTASSIUM SERUM 3.9 MMOL/L (3.5-5.1); SODIUM LEVEL 141 MMOL/L (136-145)
[2024-08-16 11:36] VITALS: BP 109/54; TEMP 98.3; O2SAT 95
[2024-08-16 20:08] VITALS: BP 117/58; TEMP 98.6; O2SAT 94
[2024-08-17 05:01] VITALS: BP 127/58; TEMP 97.8; O2SAT 95
[2024-08-17 12:00] VITALS: BP 113/65; TEMP 97.3; O2SAT 97
[2024-08-17 20:00] VITALS: BP 117/58; TEMP 97.3; O2SAT 91
[2024-08-18 04:00] VITALS: BP 134/60; TEMP 97.1; O2SAT 92
[2024-08-18 12:00] VITALS: BP 98/56
[2024-08-18 19:54] VITALS: BP 148/73; TEMP 97.7; O2SAT 96
[2024-08-19 03:49] VITALS: BP 135/63; TEMP 99.3; O2SAT 92
[2024-08-19 10:15] LABS: BASO # 0.1 10^3/uL (0.0-0.2); BASO % 0.7 % (0.0-1.0); EOS # 0.3 10^3/uL (0.0-0.5); EOS % 1.9 % (0.0-3.0); HEMATOCRIT 35.5 % (36.0-47.0); LYMPH # 1.9 10^3/uL (1.5-5.0); LYMPH % 13.1 % (24.0-44.0); MEAN CORPUSCULAR HEMOGLOBIN 27.8 pg (27.0-33.0); MEAN CORPUSCULAR VOLUME 89.6 fl (80.0-96.0); MONO # 1.6 10^3/uL (0.0-0.8); MONO % 10.8 % (2.0-8.0); NEUTROPHILS # 10.4 10^3/uL (1.5-8.5); PLATELET COUNT, AUTOMATED 708 10^3/uL (150-450); RED BLOOD COUNT 3.96 10^6/uL (4.00-5.40); WHITE BLOOD COUNT 14.5 10^3/uL (4.0-10.0)
[2024-08-19 10:38] LABS: ALBUMIN 2.2 G/DL (3.2-5.2); BILIRUBIN,TOTAL 0.2 MG/DL (0.3-1.2); CALCIUM LEVEL 9.6 MG/DL (8.3-10.6); CREATININE FOR GFR 0.99 MG/DL (0.55-1.30); MAGNESIUM LEVEL 1.7 MG/DL (1.8-2.4); POTASSIUM SERUM 4.5 MMOL/L (3.5-5.1); TOTAL PROTEIN 6.9 G/DL (5.7-8.2)
[2024-08-19 12:00] VITALS: BP 149/67; TEMP 97.4; O2SAT 95
[2024-08-19] MEDS: MAGNESIUM OXIDE 400MG TAB (MAG-OX) PO SCH (18:12)
[2024-08-19 20:11] VITALS: BP 143/68; TEMP 98.4; O2SAT 95
[2024-08-19] MEDS ORDERED: FAMOTIDINE 20 MG TAB PO PRN (21:00)
[2024-08-19] MEDS: RAMELTEON 8 MG TAB (ROZEREM) PO PRN (23:27)
[2024-08-20 05:12] VITALS: BP 150/74; TEMP 97.4; O2SAT 96
[2024-08-20 07:03] LABS: HEMATOCRIT 30.2 % (36.0-47.0); HEMOGLOBIN 9.4 g/dl (12.0-15.5); MEAN CORPUSCULAR HGB CONC 31.1 g/dl (32.0-36.5); MEAN CORPUSCULAR VOLUME 89.9 fl (80.0-96.0); PLATELET COUNT, AUTOMATED 530 10^3/uL (150-450); RED BLOOD COUNT 3.36 10^6/uL (4.00-5.40); WHITE BLOOD COUNT 13.6 10^3/uL (4.0-10.0)
[2024-08-20 07:55] LABS: ERYTHROCYTE SEDIMENTATION RATE 75 mm/hr (0-30)
[2024-08-20 12:00] VITALS: BP 95/50; TEMP 98.5; O2SAT 93
[2024-08-20] MEDS: ASPIRIN 81MG ENTERIC TABLET PO SCH (17:10)
[2024-08-20 19:24] VITALS: BP 130/59; TEMP 97.7; O2SAT 94
[2024-08-20] MEDS: RAMELTEON 8 MG TAB (ROZEREM) PO SCH (20:01)
[2024-08-21 04:07] VITALS: BP 151/70; TEMP 98.8; O2SAT 99
[2024-08-21 12:00] VITALS: BP 140/66; TEMP 97.5; O2SAT 93
[2024-08-21 20:00] VITALS: BP 127/59; TEMP 97.1; O2SAT 92
[2024-08-22 05:00] VITALS: BP 134/63; TEMP 98.3; O2SAT 92
[2024-08-22] MEDS: LevoFLOXacin 750 MG TABLET PO SCH (05:10)
[2024-08-22 06:52] LABS: HEMATOCRIT 33.1 % (36.0-47.0); HEMOGLOBIN 10.2 g/dl (12.0-15.5); MEAN CORPUSCULAR HEMOGLOBIN 27.4 pg (27.0-33.0); MEAN CORPUSCULAR HGB CONC 30.8 g/dl (32.0-36.5); PLATELET COUNT, AUTOMATED 613 10^3/uL (150-450); RED BLOOD COUNT 3.72 10^6/uL (4.00-5.40); WHITE BLOOD COUNT 16.8 10^3/uL (4.0-10.0)
[2024-08-22 07:16] LABS: BLOOD UREA NITROGEN 20 MG/DL (9-23); CALCIUM LEVEL 9.4 MG/DL (8.3-10.6); CARBON DIOXIDE LEVEL 22 MMOL/L (20-31); CHLORIDE LEVEL 111 MMOL/L (98-107); CREATININE FOR GFR 0.75 MG/DL (0.55-1.30); GLOMERULAR FILTRATION RATE > 60.0 (>32); GLUCOSE, FASTING 86 MG/DL (74-106); MAGNESIUM LEVEL 1.8 MG/DL (1.8-2.4); POTASSIUM SERUM 4.9 MMOL/L (3.5-5.1); SODIUM LEVEL 143 MMOL/L (136-145)
[2024-08-22] MEDS: MEGESTROL 400MG 10ML SUSP ORAL SYRINGE *DRAW UP EXACT DOSE PO SCH (09:31)
[2024-08-22 12:00] VITALS: BP 170/77; TEMP 97.4; O2SAT 97
[2024-08-22 12:53] VITALS: BP 142/68
[2024-08-22] MEDS ORDERED: ISOVUE-370 76% 100ML VIAL As Ordered ONE (17:36)
[2024-08-22 20:00] VITALS: BP 112/58; TEMP 97.1; O2SAT 97
[2024-08-23 03:30] VITALS: BP 170/82; TEMP 97.4; O2SAT 96
[2024-08-23 04:00] VITALS: BP 160/90
[2024-08-23 05:46] LABS: BASO # 0.1 10^3/uL (0.0-0.2); BASO % 0.8 % (0.0-1.0); EOS # 0.5 10^3/uL (0.0-0.5); EOS % 2.7 % (0.0-3.0); HEMATOCRIT 30.4 % (36.0-47.0); HEMOGLOBIN 9.6 g/dl (12.0-15.5); LYMPH # 2.7 10^3/uL (1.5-5.0); LYMPH % 15.4 % (24.0-44.0); MEAN CORPUSCULAR HEMOGLOBIN 28.2 pg (27.0-33.0); MEAN CORPUSCULAR HGB CONC 31.6 g/dl (32.0-36.5); MEAN CORPUSCULAR VOLUME 89.4 fl (80.0-96.0); MONO # 1.8 10^3/uL (0.0-0.8); MONO % 10.5 % (2.0-8.0); NEUTROPHILS # 11.7 10^3/uL (1.5-8.5); NEUTROPHILS % 67.9 % (36.0-66.0); PLATELET COUNT, AUTOMATED 530 10^3/uL (150-450); WHITE BLOOD COUNT 17.3 10^3/uL (4.0-10.0)
[2024-08-23 06:14] LABS: BLOOD UREA NITROGEN 21 MG/DL (9-23); CALCIUM LEVEL 8.6 MG/DL (8.3-10.6); CARBON DIOXIDE LEVEL 23 MMOL/L (20-31); CHLORIDE LEVEL 110 MMOL/L (98-107); CREATININE FOR GFR 0.67 MG/DL (0.55-1.30); GLOMERULAR FILTRATION RATE > 60.0 (>32); GLUCOSE, FASTING 87 MG/DL (74-106); POTASSIUM SERUM 4.5 MMOL/L (3.5-5.1); SODIUM LEVEL 143 MMOL/L (136-145)
[2024-08-23] MEDS: metroNIDAZOLE (FLAGYL) 500MG TABLET PO SCH (09:03)
[2024-08-23] MEDS ORDERED: LIDOCAINE 1% MDV 20ML VIAL As Ordered ONE (10:32)
[2024-08-23] MEDS ORDERED: ISOVUE-300 61% 100ML VIAL As Ordered ONE (11:49)
[2024-08-23 12:46] VITALS: BP 140/65; TEMP 98.2; O2SAT 97
[2024-08-23 20:15] VITALS: BP 139/64; TEMP 97.9; O2SAT 96
[2024-08-23] MEDS: CEFDINIR 300 MG CAP (OMNICEF) PO SCH (20:44)
[2024-08-24 03:57] VITALS: BP 118/68; TEMP 97.6; O2SAT 93
[2024-08-24 06:28] LABS: HEMATOCRIT 32.7 % (36.0-47.0); HEMOGLOBIN 10.1 g/dl (12.0-15.5); MEAN CORPUSCULAR HEMOGLOBIN 28.1 pg (27.0-33.0); MEAN CORPUSCULAR HGB CONC 30.9 g/dl (32.0-36.5); MEAN CORPUSCULAR VOLUME 91.1 fl (80.0-96.0); PLATELET COUNT, AUTOMATED 566 10^3/uL (150-450); RED BLOOD COUNT 3.59 10^6/uL (4.00-5.40); WHITE BLOOD COUNT 18.7 10^3/uL (4.0-10.0)
[2024-08-24 07:18] LABS: BLOOD UREA NITROGEN 35 MG/DL (9-23); CALCIUM LEVEL 9.3 MG/DL (8.3-10.6); CARBON DIOXIDE LEVEL 24 MMOL/L (20-31); CHLORIDE LEVEL 110 MMOL/L (98-107); GLOMERULAR FILTRATION RATE > 60.0 (>32); GLUCOSE, FASTING 93 MG/DL (74-106); POTASSIUM SERUM 4.9 MMOL/L (3.5-5.1); SODIUM LEVEL 143 MMOL/L (136-145)
[2024-08-24 07:33] LABS: C REACTIVE PROTEIN QUANTITATIV 0.94 MG/DL (<1.0)
[2024-08-24 07:43] LABS: ERYTHROCYTE SEDIMENTATION RATE 91 mm/hr (0-30)
[2024-08-24 08:02] LABS: PROCALCITONIN 0.12 ng/ml
[2024-08-24 12:00] VITALS: BP 109/66; TEMP 98.4; O2SAT 98
[2024-08-24] MEDS ORDERED: MICAFUNGIN SODIUM 100 MG in DEXTROSE 5% (D5W) MINI-BAG PLU 100 ML IV SCH (13:00)
[2024-08-24] MEDS: FLUCONAZOLE 100 MG TAB PO SCH (15:51)
[2024-08-24 19:58] VITALS: BP 151/71; TEMP 97.3; O2SAT 97
[2024-08-25 03:24] VITALS: BP 135/65; TEMP 97.6; O2SAT 93
[2024-08-25 08:12] LABS: HEMATOCRIT 37.2 % (36.0-47.0); HEMOGLOBIN 11.4 g/dl (12.0-15.5); MEAN CORPUSCULAR HEMOGLOBIN 27.9 pg (27.0-33.0); MEAN CORPUSCULAR HGB CONC 30.6 g/dl (32.0-36.5); PLATELET COUNT, AUTOMATED 639 10^3/uL (150-450); RED BLOOD COUNT 4.09 10^6/uL (4.00-5.40); WHITE BLOOD COUNT 16.6 10^3/uL (4.0-10.0)
[2024-08-25 12:00] VITALS: BP 106/57; TEMP 98.4; O2SAT 94
[2024-08-25 19:52] VITALS: BP 122/62; TEMP 96.4; O2SAT 95
[2024-08-26 03:33] VITALS: BP 165/76; TEMP 97.1; O2SAT 93
[2024-08-26 06:48] LABS: HEMATOCRIT 36.1 % (36.0-47.0); HEMOGLOBIN 11.4 g/dl (12.0-15.5); MEAN CORPUSCULAR HEMOGLOBIN 28.4 pg (27.0-33.0); MEAN CORPUSCULAR HGB CONC 31.6 g/dl (32.0-36.5); MEAN CORPUSCULAR VOLUME 89.8 fl (80.0-96.0); PLATELET COUNT, AUTOMATED 630 10^3/uL (150-450); RED BLOOD COUNT 4.02 10^6/uL (4.00-5.40); WHITE BLOOD COUNT 20.6 10^3/uL (4.0-10.0)
[2024-08-26 07:17] LABS: BLOOD UREA NITROGEN 29 MG/DL (9-23); CALCIUM LEVEL 9.3 MG/DL (8.3-10.6); CARBON DIOXIDE LEVEL 19 MMOL/L (20-31); CHLORIDE LEVEL 112 MMOL/L (98-107); CREATININE FOR GFR 0.72 MG/DL (0.55-1.30); GLOMERULAR FILTRATION RATE > 60.0 (>32); GLUCOSE, FASTING 98 MG/DL (74-106); MAGNESIUM LEVEL 1.8 MG/DL (1.8-2.4); POTASSIUM SERUM 4.5 MMOL/L (3.5-5.1); SODIUM LEVEL 143 MMOL/L (136-145)
[2024-08-26 08:44] LABS: PROCALCITONIN 0.12 ng/ml
[2024-08-26 08:52] LABS: ERYTHROCYTE SEDIMENTATION RATE 120 mm/hr (0-30)
[2024-08-26 10:08] VITALS: BP 165/76
[2024-08-26 12:00] VITALS: BP 168/70; TEMP 97.4; O2SAT 100
[2024-08-26] MEDS ORDERED: METR-265 PO (12:38)
[2024-08-26] MEDS ORDERED: MAGN400T2 PO (12:38)
[2024-08-26] MEDS ORDERED: ONDA-282 PO (12:38)
[2024-08-26] MEDS ORDERED: ACET32TAB PO (12:38)
[2024-08-26] MEDS ORDERED: CEFD300CAP PO (12:38)
[2024-08-26] MEDS ORDERED: METO5TAB2 PO (12:38)
[2024-08-26] MEDS ORDERED: FLUC100T3 PO (12:38)
[2024-08-26] MEDS ORDERED: MEGE400O7 PO (12:38)
[2024-08-26] MEDS ORDERED: RAME8TAB2 PO (12:38)
[2024-08-26] MEDS ORDERED: HOME MED LIST COMPLETE! XX SCH (17:15)
[2024-08-27] MEDS ORDERED: RISATAB3 PO (14:32)
[2024-08-27] MEDS ORDERED: VANC1CAP6 PO (14:32)
[2024-08-27] MEDS ORDERED: METR-265 PO (14:32)
[2024-08-27] MEDS ORDERED: ATOR1TAB21 PO (14:32)
[2024-08-27] MEDS ORDERED: FLUC-1 PO (14:32)
== END 2024-08-26 18:25 | disposition short-term general hospital (02) | DRG 91 ==
LOC: M PM&R 15:05
PROVIDERS: ADMIT Physical Medicine & Rehabilitation; ATTEND Student in an Organized Health Care Education/Training Program
PROC: BR1 Imaging, Axial Skeleton, Except Skull and Facial Bones, Fluoroscopy (ICD-10-PCS; 2024-08-23)
PROC: 0W9G30Z Drainage of Peritoneal Cavity with Drainage Device, Percutaneous Approach (ICD-10-PCS; principal; 2024-08-23 15:00)
DX: G72.81 Critical illness myopathy (principal); K65.1 Peritoneal abscess; E43 Unspecified severe protein-calorie malnutrition; K63.2 Fistula of intestine; B37.0 Candidal stomatitis; Z68.1 Body mass index [BMI] 19.9 or less, adult; Z66 Do not resuscitate; I10 Essential (primary) hypertension; M10.032 Idiopathic gout, left wrist; K21.9 Gastro-esophageal reflux disease without esophagitis; M67.432 Ganglion, left wrist; N32.81 Overactive bladder; Z74.1 Need for assistance with personal care; Z74.09 Other reduced mobility; R11.2 Nausea with vomiting, unspecified; Z85.828 Personal history of other malignant neoplasm of skin; Z90.49 Acquired absence of other specified parts of digestive tract; Z79.82 Long term (current) use of aspirin; Z79.2 Long term (current) use of antibiotics; Z79.899 Other long term (current) drug therapy; Z93.3 Colostomy status; E02 Subclinical iodine-deficiency hypothyroidism; E83.42 Hypomagnesemia; G47.00 Insomnia, unspecified; J44.9 Chronic obstructive pulmonary disease, unspecified; I77.1 Stricture of artery; G31.84 Mild cognitive impairment of uncertain or unknown etiology

== ENCOUNTER 2024-08-26 12:50 | Observation (INO) | payer MEDICARE, MEDICAID ==
[~2024-08-26] VITALS: Ht 170.2 cm; Wt 49.4 kg
[~2024-08-26 12:50] MED LIST changes: +ACET32TAB PO; +FLUC100T3 PO; +MEGE400O7 PO; +METO5TAB2 PO; +ONDA-282 PO; +RAME8TAB2 PO
[2024-08-26 19:37] VITALS: BP 144/73; TEMP 97.2; O2SAT 99
[2024-08-26] MEDS: HEPARIN SOD (PORCINE) 5000UNITS/ML 1ML VIAL/SYRINGE SC SCH (21:36)
[2024-08-26] MEDS: DOCUSATE SODIUM 100MG CAPSULE PO SCH (21:36)
[2024-08-27 04:00] VITALS: BP 154/77; TEMP 97; O2SAT 96
[2024-08-27] MEDS ORDERED: HOME MED LIST COMPLETE! XX SCH (04:35)
[2024-08-27] MEDS ORDERED: ONDANSETRON 4MG ORAL DISINTEGRATING TAB PO PRN (07:30)
[2024-08-27] MEDS ORDERED: METOCLOPRAMIDE 5 MG TAB PO PRN (07:30)
[2024-08-27] MEDS ORDERED: ALBUTEROL 90 MCG/ACT 8GM HFA INHALER INH PRN (07:30)
[2024-08-27 07:33] LABS: HEMATOCRIT 34.7 % (36.0-47.0); HEMOGLOBIN 10.8 g/dl (12.0-15.5); MEAN CORPUSCULAR HEMOGLOBIN 27.7 pg (27.0-33.0); MEAN CORPUSCULAR HGB CONC 31.1 g/dl (32.0-36.5); PLATELET COUNT, AUTOMATED 575 10^3/uL (150-450); WHITE BLOOD COUNT 16.5 10^3/uL (4.0-10.0)
[2024-08-27] MEDS: LACTOBACILLUS ACIDOPHILUS CAP (BACID) PO SCH (08:09)
[2024-08-27] MEDS: metroNIDAZOLE (FLAGYL) 500MG TABLET PO SCH (08:10)
[2024-08-27 08:13] VITALS: BP 176/88
[2024-08-27] MEDS: ATORVASTATIN 20 MG TAB PO SCH (08:13)
[2024-08-27] MEDS: ASPIRIN 81MG CHEW TABLET PO SCH (08:13)
[2024-08-27] MEDS: FAMOTIDINE 20 MG TAB PO SCH (08:13)
[2024-08-27] MEDS: amLODIPine 5 MG TAB PO SCH (08:13)
[2024-08-27] MEDS: MAGNESIUM OXIDE 400MG TAB (MAG-OX) PO SCH (08:14)
[2024-08-27 08:15] LABS: BLOOD UREA NITROGEN 30 MG/DL (9-23); CALCIUM LEVEL 9.3 MG/DL (8.3-10.6); CARBON DIOXIDE LEVEL 22 MMOL/L (20-31); CHLORIDE LEVEL 110 MMOL/L (98-107); CREATININE FOR GFR 0.63 MG/DL (0.55-1.30); GLOMERULAR FILTRATION RATE > 60.0 (>32); GLUCOSE, FASTING 88 MG/DL (74-106); POTASSIUM SERUM 4.8 MMOL/L (3.5-5.1); SODIUM LEVEL 143 MMOL/L (136-145)
[2024-08-27] MEDS ORDERED: CEFDINIR 300 MG CAP (OMNICEF) PO SCH (09:00)
[2024-08-27] MEDS: VANCOMYCIN 125MG CAPSULE PO SCH (09:55)
[2024-08-27] MEDS: MEGESTROL 400MG 10ML SUSP ORAL SYRINGE *DRAW UP EXACT DOSE PO SCH (09:55)
[2024-08-27 09:58] VITALS: BP 141/81
[2024-08-27] MEDS: FLUCONAZOLE 100 MG TAB PO SCH (10:02)
[2024-08-27 12:00] VITALS: BP 141/78; TEMP 97.2; O2SAT 97
[2024-08-27] MEDS ORDERED: METR-265 PO (14:32)
[2024-08-27] MEDS ORDERED: RISATAB3 PO (14:32)
[2024-08-27] MEDS ORDERED: VANC1CAP6 PO (14:32)
[2024-08-27] MEDS ORDERED: FLUC-1 PO (14:32)
[2024-08-27] MEDS ORDERED: ATOR1TAB21 PO (14:32)
[2024-08-27] MEDS ORDERED: RAMELTEON 8 MG TAB (ROZEREM) PO SCH (21:00)
== END 2024-08-27 16:20 | disposition home or self-care (01) ==
LOC: INTOOBSV 18:28 → M MS5PR 18:28
PROVIDERS: ADMIT Student in an Organized Health Care Education/Training Program; ATTEND Student in an Organized Health Care Education/Training Program
DX: K65.1 Peritoneal abscess (principal); K63.2 Fistula of intestine; Z74.09 Other reduced mobility; Z74.1 Need for assistance with personal care; G72.81 Critical illness myopathy; E43 Unspecified severe protein-calorie malnutrition; R64 Cachexia; B37.0 Candidal stomatitis; Z86.19 Personal history of other infectious and parasitic diseases; R10.9 Unspecified abdominal pain; I10 Essential (primary) hypertension; K57.92 Diverticulitis of intestine, part unspecified, without perforation or abscess without bleeding; K21.9 Gastro-esophageal reflux disease without esophagitis; N32.81 Overactive bladder; E87.8 Other disorders of electrolyte and fluid balance, not elsewhere classified; Z93.3 Colostomy status; Z85.828 Personal history of other malignant neoplasm of skin; Z79.899 Other long term (current) drug therapy; Z79.82 Long term (current) use of aspirin; Z79.2 Long term (current) use of antibiotics; Z66 Do not resuscitate
CPT/HCPCS: 36415; 80048; 85027; 96372; G0378; G0379

== ENCOUNTER 2024-09-18 10:19 | Emergency (ER) | payer MEDICARE, MEDICAID ==
[~2024-09-18] VITALS: Ht 170.2 cm; Wt 47.3 kg
[~2024-09-18 10:19] MED LIST changes: +FLUC-1 PO
[2024-09-18 11:22] LABS: HEMATOCRIT 41.2 % (36.0-47.0); HEMOGLOBIN 13.2 g/dl (12.0-15.5); MEAN CORPUSCULAR HEMOGLOBIN 28.4 pg (27.0-33.0); MEAN CORPUSCULAR VOLUME 88.6 fl (80.0-96.0); PLATELET COUNT, AUTOMATED 691 10^3/uL (150-450); RED BLOOD COUNT 4.65 10^6/uL (4.00-5.40); WHITE BLOOD COUNT 12.7 10^3/uL (4.0-10.0)
[2024-09-18 11:43] LABS: CREATININE FOR GFR 1.09 MG/DL (0.55-1.30); POTASSIUM SERUM 4.5 MMOL/L (3.5-5.1)
[2024-09-18] MEDS: NS (Normal Saline) 0.9% 1,000 ML IV SCH (12:31)
[2024-09-18 12:41] LABS: CK-MB VALUE MASS 1.2 NG/ML (<3.6)
[2024-09-18 12:43] LABS: BILIRUBIN,DIRECT 0.1 MG/DL (<0.4); BILIRUBIN,TOTAL 0.3 MG/DL (0.3-1.2); MB/CK RELATIVE INDEX 2.66 (< OR =4); TOTAL PROTEIN 8.5 G/DL (5.7-8.2)
[2024-09-18 12:45] LABS: FREE T4 1.21 NG/DL (0.89-1.76)
[2024-09-18 12:46] LABS: THYROID STIMULATING HORMONE 5.175 uIU/ML (0.55-4.78)
[2024-09-18 13:49] LABS: CK-MB VALUE MASS < 1.0 NG/ML (<3.6)
[2024-09-18 13:51] LABS: CPK CREATINE PHOSPHOKINASE 35 U/L (34-145); MB/CK RELATIVE INDEX 2.85 (< OR =4)
[2024-09-18 14:41] LABS: CK-MB VALUE MASS < 1.0 NG/ML (<3.6)
[2024-09-18 14:42] LABS: CPK CREATINE PHOSPHOKINASE 37 U/L (34-145)
[2024-09-18 16:07] VITALS: BP 165/78; TEMP 97.6; O2SAT 97
== END 2024-09-18 16:29 | disposition home or self-care (01) ==
LOC: EDBD 10:19 → M ED 10:19
DX: R52 Pain, unspecified (principal); I10 Essential (primary) hypertension; K57.92 Diverticulitis of intestine, part unspecified, without perforation or abscess without bleeding; K21.9 Gastro-esophageal reflux disease without esophagitis; Z95.1 Presence of aortocoronary bypass graft; Z85.828 Personal history of other malignant neoplasm of skin; Z93.3 Colostomy status; Z79.82 Long term (current) use of aspirin; Z79.899 Other long term (current) drug therapy

== ENCOUNTER → 2024-09-25 | Outpatient (CLI) | payer MEDICARE, MEDICAID ==
[~2024-09-25] MED LIST changes: +ISOVUE-370 76% 100ML VIAL ONE
== END ==
LOC: M PLAIMG 08:46
PROVIDERS: ATTEND Surgery
DX: K65.1 Peritoneal abscess (principal); Z93.3 Colostomy status
CPT/HCPCS: 74177; Q9967

== ENCOUNTER → 2024-10-02 | Outpatient (CLI) | payer MEDICARE, MEDICAID ==
[~2024-10-02] MED LIST changes: +ALBU8.5H PO; +APAP325T4 PO; +ASPI81TA26 PO; -ISOVUE-370 76% 100ML VIAL ONE; +PEPT262C2 PO; +SPIR1CAP PO
[2024-10-02 11:15] VITALS: TEMP 97.7
[2024-10-02] MEDS: LIDOCAINE 1% MDV 20ML VIAL SC ONE (12:19)
[2024-10-02] MEDS: ISOVUE-300 61% 100ML VIAL IV ONE (12:19)
[2024-10-02 12:39] VITALS: BP 180/88; O2SAT 99
== END ==
LOC: EEVIPCON 11:05 → M IRPRO 11:05
PROVIDERS: ATTEND Surgery
DX: K65.1 Peritoneal abscess (principal)
CPT/HCPCS: 49405; 87070; 87075; 87076; 87077; 87186; 87205; C1729; C1894; Q9967

== ENCOUNTER 2024-10-05 14:43 | Inpatient (IN) | payer MEDICARE, MEDICAID ==
[~2024-10-05] VITALS: Ht 170.2 cm; Wt 51.6 kg
[~2024-10-05 14:43] MED LIST changes: -ALBU8.5H PO; -APAP325T4 PO; -ASPI81TA26 PO; -PEPT262C2 PO; -SPIR1CAP PO
[2024-10-05] MEDS ORDERED: PEPT262C2 PO (15:21)
[2024-10-05] MEDS: NS (Normal Saline) 0.9% 1,000 ML IV SCH (15:34)
[2024-10-05 15:49] LABS: BASO # 0.1 10^3/uL (0.0-0.2); BASO % 0.7 % (0.0-1.0); EOS # 0.1 10^3/uL (0.0-0.5); EOS % 0.4 % (0.0-3.0); HEMATOCRIT 42.5 % (36.0-47.0); HEMOGLOBIN 13.1 g/dl (12.0-15.5); LYMPH % 15.6 % (24.0-44.0); MEAN CORPUSCULAR HEMOGLOBIN 28.2 pg (27.0-33.0); MEAN CORPUSCULAR HGB CONC 30.8 g/dl (32.0-36.5); MEAN CORPUSCULAR VOLUME 91.4 fl (80.0-96.0); MONO # 1.1 10^3/uL (0.0-0.8); MONO % 5.7 % (2.0-8.0); NEUTROPHILS # 14.2 10^3/uL (1.5-8.5); NEUTROPHILS % 73.9 % (36.0-66.0); PLATELET COUNT, AUTOMATED 669 10^3/uL (150-450); RED BLOOD COUNT 4.65 10^6/uL (4.00-5.40); WHITE BLOOD COUNT 19.2 10^3/uL (4.0-10.0)
[2024-10-05] MEDS ORDERED: ISOVUE-370 76% 100ML VIAL As Ordered ONE (16:15)
[2024-10-05 16:16] LABS: ALBUMIN 3.2 G/DL (3.2-5.2); ALKALINE PHOSPHATASE 116 U/L (35-104); ALT/SGPT 14 U/L (7.0-40); AMYLASE 51 U/L (30-118); AST/SGOT 15 U/L (<34); BILIRUBIN,DIRECT < 0.1 MG/DL (<0.4); BILIRUBIN,TOTAL 0.2 MG/DL (0.3-1.2); BLOOD UREA NITROGEN 17 MG/DL (9-23); CALCIUM LEVEL 9.7 MG/DL (8.3-10.6); CARBON DIOXIDE LEVEL 15 MMOL/L (20-31); CHLORIDE LEVEL 109 MMOL/L (98-107); CREATININE FOR GFR 1.09 MG/DL (0.55-1.30); GLUCOSE, FASTING 145 MG/DL (74-106); POTASSIUM SERUM 3.7 MMOL/L (3.5-5.1); SODIUM LEVEL 142 MMOL/L (136-145); TOTAL PROTEIN 8.1 G/DL (5.7-8.2)
[2024-10-05] MEDS: VANCOMYCIN HCL 1,000 MG, VIAL MATE ADAPTER 1 EACH in NS 250 ML IV ONE (16:17)
[2024-10-05 16:20] LABS: VENOUS BASE EXCESS -10.3 (-2.0-2.0); VENOUS HCO3 16.4 MMOL/L (23.0-27.0); VENOUS O2 SATURATION 68.9 % (60.0-80.0); VENOUS PARTIAL PRESSURE CO2 38.9 mmHg (38.0-50.0); VENOUS PARTIAL PRESSURE O2 41.5 mmHg (30.0-50.0); VENOUS PH 7.242 UNITS (7.330-7.430); VENOUS STANDARD HCO3 15.8 MMOL/L; VENOUS TOTAL CO2 17.6 MMOL/L (24.0-28.0)
[2024-10-05 16:24] LABS: PROCALCITONIN 5.26 ng/ml
[2024-10-05] MEDS: NS (Normal Saline) 0.9% 1,370 ML in IV 1 EA IV ONE (16:43)
[2024-10-05 16:47] LABS: C REACTIVE PROTEIN QUANTITATIV 15.12 MG/DL (<1.0)
[2024-10-05] MEDS ORDERED: VANCOMYCIN HCL 680 MG in IV FLUID PLACE HOLDER 1 EA IV SCH (17:45)
[2024-10-05] MEDS ORDERED: HEPARIN SOD (PORCINE) 5000UNITS/ML 1ML VIAL/SYRINGE SC SCH (17:45)
[2024-10-05] MEDS ORDERED: MOM 30ML SUSPENSION UDC PO PRN (17:45)
[2024-10-05] MEDS: ONDANSETRON 4MG 2ML VIAL IV PRN (17:47)
[2024-10-05] MEDS ORDERED: CEFEPIME HCL 2 GM in DEXTROSE 5% (D5W) ADV/MINI-BAG 50 ML IV SCH (18:00)
[2024-10-05] MEDS: LR 1,000 ML IV SCH (18:40)
[2024-10-05] MEDS ORDERED: SPIR1CAP PO (18:47)
[2024-10-05] MEDS ORDERED: ALBU8.5H PO (18:47)
[2024-10-05] MEDS ORDERED: APAP325T4 PO (18:47)
[2024-10-05] MEDS: VANCOMYCIN 125MG CAPSULE PO SCH (18:47)
[2024-10-05] MEDS ORDERED: ASPI81TA26 PO (18:47)
[2024-10-05] MEDS ORDERED: HOME MED LIST COMPLETE! XX SCH (18:50)
[2024-10-05 19:14] LABS: INR 1.13; PARTIAL THROMBOPLASTIN TIME 31.8 SECONDS (24.8-34.2); PROTHROMBIN TIME 14.9 SECONDS (12.5-14.5)
[2024-10-05] MEDS ORDERED: metroNIDAZOLE 500 MG in IV 1 EA IV SCH (20:00)
[2024-10-05 20:11] LABS: APPEARANCE, URINE HAZY (CLEAR); BACTERIA, URINE AUTO 1+ (NEGATIVE); BILIRUBIN, URINE AUTO NEGATIVE (NEGATIVE); BLOOD, URINE BLOOD 2+ (NEGATIVE); COLOR, URINE YELLOW (YELLOW); GLUCOSE, URINE (UA) AUTO NEGATIVE (NEGATIVE); KETONE, URINE AUTO NEGATIVE (NEGATIVE); LEUKOCYTE ESTERASE, URINE AUTO 1+ (NEGATIVE); NITRITE, URINE AUTO NEGATIVE (NEGATIVE); PROTEIN, URINE AUTO 1+ mg/dL (NEGATIVE); RBC, URINE AUTO 9 /HPF (0-3); SPECIFIC GRAVITY URINE AUTO 1.054 (1.002-1.035); SQUAMOUS EPITHELIAL CELL UR AU 2 /HPF (0-6); UROBILINOGEN, URINE AUTO 0.2 mg/dL (0.0-2.0); WBC, URINE AUTO 4 /HPF (0-3)
[2024-10-05] MEDS: PIPERACILLIN/TAZOBACTAM SOD 3.375 GM in DEXTROSE 5% (D5W) ADV/MINI-BAG 50 ML IV SCH (20:21)
[2024-10-05] MEDS: DOCUSATE SODIUM 100MG CAPSULE PO SCH (21:00)
[2024-10-05] MEDS: VANCOMYCIN HCL 500 MG in DEXTROSE 5% (D5W) MINI-BAG PLU 100 ML IV SCH (23:00)
[2024-10-06 03:10] VITALS: BP 156/71; TEMP 97.4; O2SAT 97
[2024-10-06 05:35] LABS: MEAN CORPUSCULAR HGB CONC 30.6 g/dl (32.0-36.5); MEAN CORPUSCULAR VOLUME 91.6 fl (80.0-96.0); RED BLOOD COUNT 3.93 10^6/uL (4.00-5.40); WHITE BLOOD COUNT 14.6 10^3/uL (4.0-10.0)
[2024-10-06 05:40] LABS: PLATELET COUNT, AUTOMATED 512 10^3/uL (150-450)
[2024-10-06 05:41] LABS: BLOOD UREA NITROGEN 16 MG/DL (9-23); CARBON DIOXIDE LEVEL 20 MMOL/L (20-31); CHLORIDE LEVEL 113 MMOL/L (98-107); CREATININE FOR GFR 0.92 MG/DL (0.55-1.30); GLOMERULAR FILTRATION RATE > 60.0 (>32); GLUCOSE, FASTING 92 MG/DL (74-106); POTASSIUM SERUM 3.6 MMOL/L (3.5-5.1); SODIUM LEVEL 144 MMOL/L (136-145)
[2024-10-06] MEDS ORDERED: ALBUTEROL 90 MCG/ACT 8GM HFA INHALER INH PRN (07:05)
[2024-10-06] MEDS: ENOXAPARIN 30MG/0.3ML SYRINGE (J1650 PER 10MG) SC SCH (08:12)
[2024-10-06] MEDS: ASPIRIN 81MG ENTERIC TABLET PO SCH (08:12)
[2024-10-06 08:19] VITALS: BP 107/59; TEMP 96.8; O2SAT 98
[2024-10-06] MEDS: TIOTROPIUM INHALER/CAPSULE (SPIRIVA) INH SCH (09:26)
[2024-10-06] MEDS: VANCOMYCIN HCL 1,000 MG, VIAL MATE ADAPTER 1 EACH in NS 250 ML IV SCH (12:14)
[2024-10-06 15:45] VITALS: BP 118/78; TEMP 97.6; O2SAT 98
[2024-10-06] MEDS: FAMOTIDINE 20 MG TAB PO SCH (18:13)
[2024-10-06] MEDS: ACETAMINOPHEN 325 MG TAB PO PRN (18:13)
[2024-10-06 20:32] VITALS: BP 116/55; TEMP 97.3; O2SAT 97
[2024-10-06 23:32] VITALS: BP 140/68; TEMP 96.6; O2SAT 97
[2024-10-07] VITALS (8 sets, daily range): BP systolic 112–178; BP diastolic 64–80; TEMP 97.4–100.6; O2SAT 96–99
[2024-10-07 06:41] LABS: BASO # 0.1 10^3/uL (0.0-0.2); BASO % 0.5 % (0.0-1.0); EOS # 0.3 10^3/uL (0.0-0.5); EOS % 2.6 % (0.0-3.0); HEMATOCRIT 30.2 % (36.0-47.0); HEMOGLOBIN 9.3 g/dl (12.0-15.5); LYMPH # 2.6 10^3/uL (1.5-5.0); LYMPH % 20.8 % (24.0-44.0); MEAN CORPUSCULAR HGB CONC 30.8 g/dl (32.0-36.5); MONO # 1.2 10^3/uL (0.0-0.8); MONO % 9.3 % (2.0-8.0); NEUTROPHILS # 7.9 10^3/uL (1.5-8.5); NEUTROPHILS % 63.8 % (36.0-66.0); PLATELET COUNT, AUTOMATED 465 10^3/uL (150-450); RED BLOOD COUNT 3.32 10^6/uL (4.00-5.40); WHITE BLOOD COUNT 12.4 10^3/uL (4.0-10.0)
[2024-10-07 07:11] LABS: BLOOD UREA NITROGEN 11 MG/DL (9-23); CALCIUM LEVEL 7.7 MG/DL (8.3-10.6); CARBON DIOXIDE LEVEL 22 MMOL/L (20-31); CHLORIDE LEVEL 113 MMOL/L (98-107); CREATININE FOR GFR 0.77 MG/DL (0.55-1.30); GLOMERULAR FILTRATION RATE > 60.0 (>32); GLUCOSE, FASTING 93 MG/DL (74-106); POTASSIUM SERUM 3.6 MMOL/L (3.5-5.1); SODIUM LEVEL 145 MMOL/L (136-145)
[2024-10-07 08:05] LABS: C REACTIVE PROTEIN QUANTITATIV 2.95 MG/DL (<1.0)
[2024-10-07 08:18] LABS: ERYTHROCYTE SEDIMENTATION RATE 59 mm/hr (0-30)
[2024-10-07 11:10] LABS: IRON (FE) 18 UG/DL (50-170); PERCENT SATURATION 11.5 % (13.2-45.0); TOTAL IRON BINDING CAPACITY 156 UG/DL (250-425)
[2024-10-07 11:13] LABS: FERRITIN 215.2 NG/ML (7.3-270.7); FOLATE 4.38 NG/ML (>5.4)
[2024-10-07] MEDS: AUGMENTIN 875 MG TAB PO SCH (11:15)
[2024-10-07] MEDS: BACTRIM 160MG/800MG DS TAB PO SCH (11:15)
[2024-10-07 11:50] LABS: VITAMIN B12 LEVEL 253 PG/ML (211-911)
[2024-10-07] MEDS: FERRIC CARBOXYMALTOSE INJ 750 MG, VIAL MATE ADAPTER 1 EACH in NS 100 ML IV ONE (15:24)
[2024-10-08 00:22] VITALS: BP 159/74; TEMP 99.5; O2SAT 94
[2024-10-08 04:46] VITALS: BP 120/67; TEMP 98.2; O2SAT 97
[2024-10-08 07:07] LABS: HEMATOCRIT 28.8 % (36.0-47.0); HEMOGLOBIN 9.1 g/dl (12.0-15.5); MEAN CORPUSCULAR HEMOGLOBIN 27.7 pg (27.0-33.0); MEAN CORPUSCULAR HGB CONC 31.6 g/dl (32.0-36.5); MEAN CORPUSCULAR VOLUME 87.5 fl (80.0-96.0); PLATELET COUNT, AUTOMATED 503 10^3/uL (150-450); RED BLOOD COUNT 3.29 10^6/uL (4.00-5.40); WHITE BLOOD COUNT 12.4 10^3/uL (4.0-10.0)
[2024-10-08 07:41] VITALS: BP 180/82; TEMP 97.6; O2SAT 93
[2024-10-08 07:44] LABS: ANISOCYTOSIS 1+; EOSINOPHILS 2 % (0-3); LYMPHOCYTES 16 % (16-44); MONOCYTES 8 % (0-5); NEUTROPHILS 74 % (28-66); PLATELET ESTIMATE INCREASED (NORMAL); POIKILOCYTOSIS 1+; POLYCHROMASIA 1+
[2024-10-08 07:45] LABS: BLOOD UREA NITROGEN 8 MG/DL (9-23); CALCIUM LEVEL 8.2 MG/DL (8.3-10.6); CARBON DIOXIDE LEVEL 20 MMOL/L (20-31); CHLORIDE LEVEL 115 MMOL/L (98-107); CREATININE FOR GFR 0.64 MG/DL (0.55-1.30); GLOMERULAR FILTRATION RATE > 60.0 (>32); GLUCOSE, FASTING 75 MG/DL (74-106); POTASSIUM SERUM 3.5 MMOL/L (3.5-5.1); SODIUM LEVEL 145 MMOL/L (136-145)
[2024-10-08] MEDS ORDERED: ALBUTEROL 90 MCG/ACT 8GM HFA INHALER INH PRN (07:51)
[2024-10-08] MEDS: CYANOCOBALAMIN 500 MCG TAB PO SCH (09:56)
[2024-10-08] MEDS: FOLIC ACID 1MG TAB PO SCH (09:56)
[2024-10-08 10:00] VITALS: BP 166/65
[2024-10-08 16:00] VITALS: BP 164/76; TEMP 98; O2SAT 96
[2024-10-08 20:20] VITALS: BP 144/67; TEMP 98.9; O2SAT 93
[2024-10-09 04:02] VITALS: BP 168/77; TEMP 97.8; O2SAT 96
[2024-10-09 06:23] LABS: BASO # 0.1 10^3/uL (0.0-0.2); BASO % 0.6 % (0.0-1.0); EOS # 0.5 10^3/uL (0.0-0.5); EOS % 3.7 % (0.0-3.0); HEMATOCRIT 33.2 % (36.0-47.0); HEMOGLOBIN 10.6 g/dl (12.0-15.5); LYMPH # 2.3 10^3/uL (1.5-5.0); LYMPH % 16.5 % (24.0-44.0); MEAN CORPUSCULAR HEMOGLOBIN 27.6 pg (27.0-33.0); MEAN CORPUSCULAR HGB CONC 31.9 g/dl (32.0-36.5); MEAN CORPUSCULAR VOLUME 86.5 fl (80.0-96.0); MONO # 0.9 10^3/uL (0.0-0.8); MONO % 6.3 % (2.0-8.0); NEUTROPHILS # 9.5 10^3/uL (1.5-8.5); NEUTROPHILS % 68.1 % (36.0-66.0); PLATELET COUNT, AUTOMATED 528 10^3/uL (150-450); RED BLOOD COUNT 3.84 10^6/uL (4.00-5.40); WHITE BLOOD COUNT 13.9 10^3/uL (4.0-10.0)
[2024-10-09 06:46] LABS: BLOOD UREA NITROGEN 6 MG/DL (9-23); C REACTIVE PROTEIN QUANTITATIV 1.73 MG/DL (<1.0); CALCIUM LEVEL 8.1 MG/DL (8.3-10.6); CARBON DIOXIDE LEVEL 23 MMOL/L (20-31); CHLORIDE LEVEL 108 MMOL/L (98-107); CREATININE FOR GFR 0.66 MG/DL (0.55-1.30); GLOMERULAR FILTRATION RATE > 60.0 (>32); GLUCOSE, FASTING 70 MG/DL (74-106); POTASSIUM SERUM 3.2 MMOL/L (3.5-5.1); SODIUM LEVEL 142 MMOL/L (136-145)
[2024-10-09 06:49] LABS: ERYTHROCYTE SEDIMENTATION RATE 55 mm/hr (0-30)
[2024-10-09 08:05] VITALS: BP 141/63; TEMP 98.2; O2SAT 96
[2024-10-09] MEDS: POTASSIUM CHLORIDE 10MEQ SR TABLET PO ONE (08:47)
[2024-10-09] MEDS ORDERED: BACTDSTA PO (09:33)
[2024-10-09] MEDS ORDERED: AMOX875T2 PO (09:33)
[2024-10-09] MEDS ORDERED: FERR325T3 PO (09:33)
[2024-10-09] MEDS ORDERED: FOLI1TAB11 PO (09:33)
[2024-10-09] MEDS ORDERED: VITA500T40 PO (09:33)
[2024-10-09] MEDS: ONDANSETRON 4MG ORAL DISINTEGRATING TAB PO PRN (10:19)
== END 2024-10-09 11:26 | disposition home health service (06) | DRG 871 ==
LOC: M ED 16:55 → M ED INP 17:43 → M PCU 10-06 02:59
PROVIDERS: ADMIT Student in an Organized Health Care Education/Training Program; ATTEND Student in an Organized Health Care Education/Training Program
DX: A41.9 Sepsis, unspecified organism (principal); E43 Unspecified severe protein-calorie malnutrition; A04.71 Enterocolitis due to Clostridium difficile, recurrent; E87.20 Acidosis, unspecified; Z66 Do not resuscitate; I10 Essential (primary) hypertension; E78.5 Hyperlipidemia, unspecified; K21.9 Gastro-esophageal reflux disease without esophagitis; N32.81 Overactive bladder; K60.40 Rectal fistula, unspecified; G47.33 Obstructive sleep apnea (adult) (pediatric); D50.9 Iron deficiency anemia, unspecified; Z93.3 Colostomy status; Z85.828 Personal history of other malignant neoplasm of skin; Z79.899 Other long term (current) drug therapy; Z79.82 Long term (current) use of aspirin

== ENCOUNTER → 2025-02-17 | Outpatient (CLI) | payer MEDICARE, MEDICAID ==
[~2025-02-17] MED LIST changes: +ALBU8.5H PO; +AMLO-751 PO; -AMLO10TA PO; +APAP325T4 PO; +ASPI81TA26 PO; +BACTDSTA PO; +FERR325T3 PO; +FOLI1TAB11 PO; +PEPT262C2 PO; +SPIR1CAP PO; +VITA500T40 PO
[2025-02-17 18:21] LABS: BASO # 0.1 10^3/uL (0.0-0.2); BASO % 0.5 % (0.0-1.0); EOS # 0.1 10^3/uL (0.0-0.5); EOS % 0.8 % (0.0-3.0); LYMPH # 3.4 10^3/uL (1.5-5.0); LYMPH % 19.1 % (24.0-44.0); MONO # 1.4 10^3/uL (0.0-0.8); MONO % 7.8 % (2.0-8.0); NEUTROPHILS # 12.5 10^3/uL (1.5-8.5); NEUTROPHILS % 71.4 % (36.0-66.0); PLATELET COUNT, AUTOMATED 488 10^3/uL (150-450)
[2025-02-17 18:49] LABS: ALT/SGPT 17.0 U/L (7.0-40); AST/SGOT 18.0 U/L (<34); CALCIUM LEVEL 10.1 MG/DL (8.3-10.6); CARBON DIOXIDE LEVEL 28.0 MMOL/L (20-31); CHLORIDE LEVEL 105.0 MMOL/L (98-107); CREATININE FOR GFR 0.73 MG/DL (0.55-1.30); GLOMERULAR FILTRATION RATE 81.6 (>32); MAGNESIUM LEVEL 1.9 MG/DL (1.8-2.4); POTASSIUM SERUM 4.9 MMOL/L (3.5-5.1); SODIUM LEVEL 145.0 MMOL/L (136-145)
== END ==
LOC: M WUC 15:28
PROVIDERS: ATTEND Nurse Practitioner Family
DX: I10 Essential (primary) hypertension (principal)

== ENCOUNTER → 2025-05-13 | Outpatient (CLI) | payer MEDICARE, MEDICAID ==
[~2025-05-13] MED LIST changes: +AMLO2.5T3 PO; +B-12100010 PO; +MAGN400T33 PO; +SODIUM CHLORIDE 0.9% 1000 ML XX SCH
[2025-05-13 14:16] VITALS: BP 181/85; TEMP 98; O2SAT 99
[2025-05-13] MEDS: ISOVUE-300 61% 100 ML VIAL IV SCH (15:35)
[2025-05-13] MEDS: LIDOCAINE 1% MDV 20 ML VIAL SC SCH (15:35)
== END ==
LOC: M IRPRO 13:54
PROVIDERS: ATTEND Radiology Diagnostic Radiology
DX: K65.1 Peritoneal abscess (principal); K63.2 Fistula of intestine
CPT/HCPCS: 49405; C1729; Q9967

== ENCOUNTER → 2025-06-03 | Outpatient (CLI) | payer MEDICARE, MEDICAID ==
[~2025-06-03] MED LIST changes: -SODIUM CHLORIDE 0.9% 1000 ML XX SCH
[2025-06-03 10:53] VITALS: TEMP 99.1
[2025-06-03] MEDS: SODIUM CHLORIDE 0.9% 1000 ML XX SCH (10:55)
[2025-06-03] MEDS: LIDOCAINE 1% MDV 20 ML VIAL SC SCH (10:55)
[2025-06-03] MEDS: ISOVUE-300 61% 100 ML VIAL IV SCH (10:55)
[2025-06-03 11:33] VITALS: O2SAT 97
[2025-06-03 11:49] VITALS: BP 175/87
== END ==
LOC: M IRPRO 10:48
PROVIDERS: ATTEND Radiology Diagnostic Radiology
DX: K65.1 Peritoneal abscess (principal); K63.2 Fistula of intestine
CPT/HCPCS: 49424; 76000; 76080; Q9967

== ENCOUNTER → 2025-06-19 | Outpatient (CLI) | payer MEDICARE, MEDICAID ==
[~2025-06-19] MED LIST changes: -BACTDSTA PO; +ISOVUE-300 61% 100 ML VIAL As Ordered ONE; +ISOVUE-300 61% 100 ML VIAL IV SCH; +LIDOCAINE 1% MDV 20 ML VIAL As Ordered ONE; +LIDOCAINE 1% MDV 20 ML VIAL SC SCH; +SULF-8 PO
[2025-06-19 11:20] VITALS: BP 172/77; TEMP 98; O2SAT 96
== END ==
LOC: M IRPRO 10:23
PROVIDERS: ATTEND Radiology Diagnostic Radiology
DX: K65.1 Peritoneal abscess (principal); K63.2 Fistula of intestine
CPT/HCPCS: 49405; 49407; C1729; C1887; Q9967

== ENCOUNTER → 2025-06-23 | Outpatient (REF) | payer MEDICARE, MEDICAID ==
[~2025-06-23] MED LIST changes: -ISOVUE-300 61% 100 ML VIAL As Ordered ONE; -ISOVUE-300 61% 100 ML VIAL IV SCH; -LIDOCAINE 1% MDV 20 ML VIAL As Ordered ONE; -LIDOCAINE 1% MDV 20 ML VIAL SC SCH
== END ==
LOC: M IRPRO 15:10
PROVIDERS: ATTEND Registered Nurse School
DX: L08.9 Local infection of the skin and subcutaneous tissue, unspecified (principal)

== ENCOUNTER → 2025-06-23 | Outpatient (POV) | payer MEDICARE | LOC: M IRPOV 13:30 | PROVIDERS: ATTEND Registered Nurse School | DX: Z43.8 Encounter for attention to other artificial openings (principal); L08.9 Local infection of the skin and subcutaneous tissue, unspecified; Z79.82 Long term (current) use of aspirin; Z79.899 Other long term (current) drug therapy ==

== ENCOUNTER → 2025-07-03 | Outpatient (CLI) | payer MEDICARE, MEDICAID ==
[~2025-07-03] MED LIST changes: +ISOVUE-300 61% 100 ML VIAL As Ordered ONE; +LIDOCAINE 1% MDV 20 ML VIAL As Ordered ONE
[2025-07-03 11:10] VITALS: TEMP 99.2
[2025-07-03 12:25] VITALS: BP 160/82; O2SAT 96
== END ==
LOC: M IRPRO 11:03
PROVIDERS: ATTEND Radiology Diagnostic Radiology
DX: K65.1 Peritoneal abscess (principal)
CPT/HCPCS: 49423; 75984; Q9967